=== PATIENT | female | born 1945 | race Caucasian/White ===

== ENCOUNTER → 2023-12-20 15:33 | Outpatient (REF) | payer MEDICARE, OTHER, SELFPAY | LOC: RAD 15:33 | PROVIDERS: ATTENDING PHYSICIAN Specialist; FAMILY PHYSICIAN Internal Medicine | DX: C18.9 Malignant neoplasm of colon, unspecified (principal); C77.9 Secondary and unspecified malignant neoplasm of lymph node, unspecified | CPT/HCPCS: 71260; 74177; Q9967 ==

== ENCOUNTER 2023-12-28 19:32 | Emergency (ER) | payer MEDICARE, OTHER, SELFPAY ==
[2023-12-28 19:39] VITALS: BP 149/76
--- NOTE | 2023-12-28 22:15 | ED.SKININJ ---
HPI-Injury
<JACOB Bain - Last Filed: 12/28/23 23:53>
General
Chief Complaint: Skin Problem
Source: patient and spouse
Exam Limitations: none
Time Seen by Provider: 12/28/23 22:03
Nursing documentation reviewed up to this point in time: agreed with
Travel History
Have you had any contact with someone who has COVID-19?: No
Do you have any symptoms of coronavirus? Fever > 100 degrees, chills, cough, shortness of breath, sore throat, loss of taste or smell, muscle aches, or headache?: No
History of Present Illness-Injury
Is this injury a work related problem?: No
Initial Injury comments:
78 y/o F presents to ED after injury above lip. Patient reports she was walking with 2 dinner plates when she tripped over the rug and fell onto the coffee table around 1900. She now presents with a cut along her upper lip, below her nose. It is not
actively bleeding but patient reports it was bleeding at time of injury. She does not recall what she hit to cause the injury but states the dinner plate was broken. She may have hit her face on plate or the table. Coffee table is described as a
rounded wooden table with no sharp edges. reports patient walks with shuffling steps which caused her to trip across rug. She reports moderate pain and tightness around area. She did not apply anything to the cut or wash it with water.
Patient has wet gauze on it in ED. She is currently on low dose ASA that she takes in the morning. Denies other injuries, dental injury, headache, nausea, vomiting, or LOC. No warmth or redness along cut.
Past History
<JACOB Bain - Last Filed: 12/28/23 23:53>
Past History
ED Past Medical History: Cancer, GERD, HTN, Hypercholesterolemia, NIDDM and Other
ED Past Surgical History: Cholecystectomy, Orthopedic and Urological (litho)
Social History
Tobacco: Smoker
Alcohol: None
Drug: None
Personal:
Living: with family
Review of Systems
<Joao Jacobo BRENDA - Last Filed: 12/28/23 23:53>
Review of Systems
Allergies reviewed?: Yes
All Other Systems: ROS reviewed and negative except as documented in HPI and ROS
Constitutional: Reports no symptoms
EENT: Reports no symptoms
Respiratory: Reports no symptoms
Cardiac: Reports no symptoms
ABD/GI: Reports no symptoms
: Reports no symptoms
Musculoskeletal: Reports no symptoms
Skin: Reports other (laceration)
Neurological: Reports no symptoms
Endocrine: Reports no symptoms
Hematologic/Lymphatic: Reports no symptoms
Psychiatric: Reports no symptoms
Skin Exam
<Jorgegeorge Jacobo, BRENDA - Last Filed: 12/28/23 23:53>
Laceration
Upper Lip:
Length in cm: 4
Orientation: diagonal
Type of Laceration: layered
Any active bleeding?: low grade venous oozing
Distal skin color and temperature: normal-warm & good color
Normal distal neurovascular exam: Yes
Range of motion: full
Phy Exam
<Jorgegeorge Jacobo, BRENDA - Last Filed: 12/28/23 23:53>
General Physical Exam
General Presentation: well appearing
General age: appears stated age
General Skin: warm and dry
General Habitus: normal
General Mental: alert
General Hydration: appears well hydrated
ENT Exam
ENT Exam: other (dentition intact)
Eye Exam
Eye Exam: PERRL, EOMI and conjunctiva normal
Cardiovascular Exam
Cardiovascular Exam: regular rate/rhythm, no edema, no gallop, no murmur and normal peripheral pulses
Pulmonary Exam
Pulmonary Exam: lungs clear and no respiratory distress
Neurological Exam
Neurological Exam: alert and oriented x3
Musculoskeletal Exam
Musculoskeletal Exam: full ROM (full ROM of all extremities and neck)
Skin Exam
Skin Exam: normal color, warm/dry and laceration (4 cm horizontal laceration along philtrum, no erythema, swelling or warmth in surrounding skin)
Psychiatric Exam
Psychiatric Exam: normal mood/affect
Course
<JACOB Bain - Last Filed: 12/28/23 23:53>
Orders/Labs/Results
Orders:
Orders
12/28/23 22:24
Tetanus/Diphth/Acelpertussis [Adacel] 0.5 ml IM .ONCE ONE
12/28/23 23:46
Acetaminophen [Tylenol] 1,000 mg PO NOW STA
Cephalexin Monohydrate [Keflex] 500 mg PO NOW STA
Vital Signs
Initial and Last Documented VS:
Initial Vital Signs
Temp Pulse Resp BP Pulse Ox
97.9 F 63 20 149/76 98
12/28/23 19:39 12/28/23 19:39 12/28/23 19:39 12/28/23 19:39 12/28/23 19:39
Last Documented Vital Signs
Temp Pulse Resp BP Pulse Ox
97.9 F 63 20 149/76 98
12/28/23 19:39 12/28/23 19:39 12/28/23 19:39 12/28/23 19:39 12/28/23 19:39
<Natalia Silveira DO - Last Filed: 12/29/23 00:00>
Orders/Labs/Results
Orders:
Orders
12/28/23 22:24
Tetanus/Diphth/Acelpertussis [Adacel] 0.5 ml IM .ONCE ONE
12/28/23 23:46
Acetaminophen [Tylenol] 1,000 mg PO NOW STA
Cephalexin Monohydrate [Keflex] 500 mg PO NOW STA
Vital Signs
Initial and Last Documented VS:
Initial Vital Signs
Temp Pulse Resp BP Pulse Ox
97.9 F 63 20 149/76 98
12/28/23 19:39 12/28/23 19:39 12/28/23 19:39 12/28/23 19:39 12/28/23 19:39
Last Documented Vital Signs
Temp Pulse Resp BP Pulse Ox
97.9 F 63 20 149/76 98
12/28/23 19:39 12/28/23 19:39 12/28/23 19:39 12/28/23 19:39 12/28/23 19:39
Procedures
<JACOB Bain - Last Filed: 12/28/23 23:53>
Laceration Closure
Upper Lip:
Status of Wound: clean
Size of Wound in cm: 4
Description of Wound Edges: sharp
Preparation: cleaned with saline
Anesthesia: 1% Lidocaine with epi and added Na Bicarb to local
Revision/Debridement: irrigate-direct pressure
Type of Closure: interrupted sutures
Skin Closure Material: 6-0 nylon
Number of sutures: 11
<JACOB Bain - Last Filed: 12/28/23 23:53>
MDM/Problems Addressed
Differential Diagnosis Includes:
Laceration
MDM/Problems Addressed:
Laceration closed with 11 interrupted sutures, 6-0 nylon. No signs of surrounding infection.
<JACOB Bain - Last Filed: 12/28/23 23:53>
*Critical Care Note
Total Time (30-74mins, 75-104mins- exclusive of procedures): Not Applicable
<Natalia Silveira DO - Last Filed: 12/29/23 00:00>
*Pulse Oximetry
Patient hypoxic: no
*Critical Care Note
Total Time (30-74mins, 75-104mins- exclusive of procedures): Not Applicable
ED Attending Note
<JACOB Bain - Last Filed: 12/28/23 23:53>
-
Portions of this chart may have been created with voice recognition software.� Occasional wrong word or��sound alike� substitutions may have occurred due to the inherent limitations of voice recognition software.
<Natalia Silveira DO - Last Filed: 12/29/23 00:00>
ED Attending Note
Patient seen and examined by attending physician: Yes
I performed the substantive portion of visit, reviewed & personally made and approve the management plan that is documented in note by myself or MATT.: Yes
I performed a history and physical exam of patient and discussed management with resident, I reviewed resident's note and agree with documented findings and plan of care.: Yes
ED Attending Note:
This is a 78-year-old woman who resides at home independently. While carrying 2 plates full of dinner out to her living room she inadvertently tripped over her coffee table falling forward and striking her face, she believes on the coffee table.
She denies loss of consciousness and was able to get up and has been ambulatory since incident. She complains of laceration upper lip just below her nose with moderate bleeding initially which has subsided with local pressure.
She takes no anticoagulants save for low-dose aspirin.
She denies headache, denies neck nor back pain, no epistaxis, no dizziness nor lightheadedness, no weakness nor numbness. She denies dental pain nor mouth pain.
Unsure as to her last Tdap believes this was greater than 10 years ago.
TRAUMA EXAM:
VITAL SIGNS: Vital signs reviewed, cooperative. 78-year-old woman appears her stated age, bright and alert, pleasant, appears in no acute distress. Easily communicative.
DISTRESS: No active disease
EYES: Pupils reactive, no orbital trauma
NOSE: No deformity or epistaxis. No palpable nasal tenderness. No septal hematoma.
FACE AND SCALP: No scalp trauma, external canals no blood. There is a 4 cm horizontal laceration of the upper lip just below the nose. This laceration is subcutaneous depth but not through and through and does not involve the vermilion border.
There is no active bleeding. No involvement of the nasal lauri. Teeth are intact, nontender. There is full mandible range of motion without difficulty nor pain. No facial bony tenderness.
NECK: Supple nontender, full range of motion without difficulty nor pain.
BACK: Back nontender, pelvis stable to compression
RESPIRATORY: No distress, breath sounds normal, no tender chest wall
CARDIAC: No murmur, pulses equal and strong
ABDOMEN: Soft nontender bowel sounds normal
SKIN: Warm and dry, mildly pale in color. Fair turgor.
EXTREMITIES: Nontender. Full range of motion without difficulty nor pain.
NEUROLOGICAL: Alert, oriented, no motor deficits. Gait is steady.
PSYCH: Mood affect normal
Patient will require suture repair of upper lip laceration.
She remains bright and alert, no focal neurodeficits, no anticoagulants save her low-dose aspirin; no indication for CT of the head.
No spinal tenderness nor complaints of pain, no facial bony tenderness. No indication for radiologic studies.
Will update Tdap.
12/28/2023 2345 PM
Suture repair by PA student, assisted by myself.
Will place on short course of Keflex.
Will give Tylenol for pain.
Wound care discussed.
Recommend follow-up with PCP in 5 to 7 days for suture removal.
Discharge Plan
Departure
Patient Disposition: Home (Routine Discharge)
Date of Disposition: 12/28/23
Time of Disposition: 23:47
Patient with high blood pressure during this ER visit?: No
Condition: Good
Discharge Problem:
laceration of upper lip
Instructions: Laceration Repair With Stitches ED
Prescriptions:
New
cephalexin 500 mg capsule
1,000 mg PO BID 5 Days Qty: 20 0RF
No Action
atorvastatin 20 MG tablet
20 mg PO HS
sertraline 100 MG tablet
200 mg PO QPM
Patient Comments:
01/26/23-patient states is 2 tables but home list and pharmacy show one and a half tablets
pantoprazole 40 MG tablet,delayed release (DR/EC)
40 mg PO DAILY
aspirin 81 mg Tablet,Delayed Release (Dr/Ec)
81 mg PO DAILY
potassium chloride 20 mEq Tablet Extended Release
20 meq PO SUTUTHSA
lisinopril 20 mg tablet
10 mg PO DAILY
Hold Instructions: Resume on 02/09/23. until seen by pcp
furosemide [Lasix] 20 mg Tablet
20 mg PO DAILY
glimepiride 1 mg Tablet
1 mg PO DAILY
potassium chloride 20 mEq Tablet Extended Release
40 meq PO MOWEFR
loperamide 2 mg Capsule
2 mg PO BID Qty: 0 0RF
Rx Instructions:
would stop if no BM x3 days, and if no BM x5 days would start laxative
carvedilol 3.125 mg Tablet
3.125 mg PO BID Qty: 0 0RF
diphenoxylate-atropine 2.5-0.025 mg Tablet
1 tab PO Q4HPRN PRN (Reason: chemo diarrhea) Qty: 0 0RF
Referrals:
Sabra Bey MD [Family Provider] - Follow up in 5-7 days
Activity Restrictions/Additional Instructions:
Keep wound clean and dry. You may cleanse with very gentle soap and water once a day, pat dry, apply thin film of antibiotic ointment such as bacitracin or Neosporin once daily and then Band-Aid or if no drainage can leave open to air.
Take Tylenol 4 times daily as needed for pain.
You have been prescribed a 5-day course of Keflex, 2 caplets twice daily to help prevent infection.
Elevate head of bed over the next few days to help limit local swelling and you can apply local ice as well.
Follow-up with your primary care physician in 5 to 7 days for suture removal.
Interventions
Interventions:
*Risk Screen - Suicide Last Done: 12/28/23 19:39
*General Assessment Last Done: 12/28/23 19:39
*Neglect/Abuse Screening Last Done: 12/28/23 19:39
*ED COVID-19 Vaccine History Last Done: 12/28/23 21:58
ED-Skin Assessment Last Done: 12/28/23 22:33
[2023-12-28] MEDS: TYLENOL 1000 MG PO (23:52)
[2023-12-28] MEDS: ADACEL 0.5 ML IM (23:53)
[2023-12-28] MEDS: KEFLEX 500 MG PO (23:53)
== END 2023-12-29 00:08 | disposition home or self-care (01) ==
LOC: EMR 19:32
PROVIDERS: EMERGENCY PHYSICIAN Emergency Medicine; FAMILY PHYSICIAN Internal Medicine
DX: S01.511A Laceration without foreign body of lip, initial encounter (principal); W01.190A Fall on same level from slipping, tripping and stumbling with subsequent striking against furniture, initial encounter; F17.200 Nicotine dependence, unspecified, uncomplicated; Z23 Encounter for immunization
CPT/HCPCS: 99282; 12013; 90471; 90715

== ENCOUNTER → 2024-06-01 14:57 | Outpatient (REF) | payer MEDICARE, OTHER, SELFPAY | LOC: RAD 14:57 | PROVIDERS: ATTENDING PHYSICIAN Specialist; FAMILY PHYSICIAN Internal Medicine | DX: C18.9 Malignant neoplasm of colon, unspecified (principal); C77.9 Secondary and unspecified malignant neoplasm of lymph node, unspecified | CPT/HCPCS: 71260; 74177; Q9967 ==

== ENCOUNTER 2024-10-09 17:40 | Emergency (ER) | payer MEDICARE, OTHER, SELFPAY ==
[2024-10-09 17:45] VITALS: BP 110/59
[2024-10-09 17:49] LABS: Glucose - Point of Care 212 mg/dl (70-99)
[2024-10-09 18:15] LABS: % Basophils 0.2 % (0-2); % Immature Granulocytes 0.4 % (0-0.5); % Lymphocytes 4.6 % (20.5-51.1); % Monocytes 3.7 % (1.7-9.3); % Neutrophils 91.1 % (42.2-75.2); Absolute Lymphocytes 0.5 10^3/uL (1.2-3.4); Absolute Monocytes 0.4 10^3/uL (0.1-0.6); Absolute Neutrophils 9.2 10^3/uL (1.4-6.5); Hematocrit 34.8 % (37.0-47.0); Hemoglobin 11.9 g/dL (12.0-16.0); Mean Corp Hgb Conc. 34.2 g/dL (33.0-37.0); Mean Corpuscular Hgb 29.5 pg (27.0-31.0); Mean Corpuscular Volume 86.1 fL (81.0-99.0); Mean Platelet Volume 10.7 fL (7.4-10.4); Nucleated Red Blood Cells % 0 %; Platelet Count 141 10^3/uL (130-400); Red Blood Cell Count 4.04 10^6/uL (4.20-5.40); Red Cell Dist. Width 12.7 % (11.5-14.5); White Blood Cell Count 10.1 10^3/uL (4.8-10.8)
[2024-10-09 18:23] VITALS: BP 122/72
[2024-10-09 18:25] LABS: ALT (SGPT) 29 U/L (0-35); AST (SGOT) 54 U/L (14-36); Albumin 4.2 g/dl (3.5-5.0); Alkaline Phosphatase 145 U/L (38-126); Blood Urea Nitrogen 26 mg/dl (7-17); Calcium 9.5 mg/dl (8.4-10.2); Carbon Dioxide 18 mmol/L (22-30); Chloride 99 mmol/L (98-107); Glucose 220 mg/dl (70-99); Lipase 25 U/L (23-300); Potassium 4.2 mmol/L (3.5-5.1); Sodium 137 mmol/L (135-145); Total Bilirubin 1.1 mg/dl (0.2-1.3); Total Protein 6.9 g/dl (6.3-8.2); eGFR 46.91
[2024-10-09 18:27] LABS: COVID-19 Antigen Negative (Negative)
--- NOTE | 2024-10-09 20:31 | ED.GENMED ---
History of Present Illness
General
Chief Complaint: Abdominal Symptoms
Time Seen by Provider: 10/09/24 20:30
History of Present Illness
History of Present Illness:
TIME OF INITIAL ENCOUNTER: 8:30 PM
HPI: The patient presents with 3 to 4 days of excessive diarrhea. She denies any recent antibiotic use. She has been very weak over the last day or so. She is essentially been in bed from 3 PM to 1 PM today. She has some degree of abdominal
discomfort.
EXAM:
GENERAL: The patient appears somewhat lethargic
HEENT: Very dry oral mucosa, somewhat hard of hearing
CARDIOVASCULAR: No murmurs, normal heart rate, regular rhythm, No chest wall tenderness
PULMONARY: No respiratory distress, breath sounds are clear and equal
ABDOMEN: Soft with no peritoneal signs, no tenderness
NEUROLOGIC: Fair strength all extremities, no coordination deficits
PSYCHIATRIC: Appropriate mental status, normal insight and judgement
EXTREMITIES: Nontender, no edema, moves all extremities equally
SKIN: No rash, no lesions
NUMBER AND COMPLEXITY OF PROBLEMS ADDRESSED AT THE ENCOUNTER
� Chronic conditions affecting care: Colon cancer, high blood pressure, hyperlipidemia, GERD, diabetes, anxiety/depression
� Acute Exacerbation and/or Progression of Chronic Illness: This is an acute problem
� Differential Diagnosis includes: acute diarrheal illness, viral syndrome, foodborne illness, dehydration, GHADA
AMOUNT AND/OR COMPLEXITY OF DATA TO BE REVIEWED AND ANALYZED
� I performed an independent evaluation of and my interpretation is:
EKG:
CT:
X-rays:
Laboratory Studies: White count is 10.1, hemoglobin 11.9, bicarb is 18, creatinine is 1.2, COVID-negative
Other:
� Review of other/old records: The patient was admitted here in January 2023 with diarrhea and weakness at that time was felt to be chemotherapy induced�at that time her lab work was more concerning than it is today.
� Clinical information was obtained by an independent historian: I spoke to the at bedside
� Prescriptions/Medications Considered but not given:
� Further testing considered but not performed: I offered and considered keeping the patient in the hospital however the patient adamantly prefers to go home and sleep in her own bed.
RISK OF COMPLICATIONS AND/OR MORBIDITY OR MORTALITY OF PATIENT MANAGEMENT
� Social determinants of health affecting care: Lives at home
� Discussion with other providers:
� Escalation of care including admission/observation vs risk of discharge considered: The patient's blood work today is not as bad as what it was when she was admitted here with dehydration that was felt to be due to chemotherapy
induced diarrhea in 2022. She was given IV fluids tonight as she appeared very dehydrated upon arrival with very dry oral mucosa.
ANY OTHER UPDATES:
11:50 PM: The patient was given a liter of fluid and on reassessment she does appear more awake and alert. Will give 500 mL of additional fluids. She has been unable to give us a stool sample here.
Past History
Past History
ED Past Medical History: Cancer, GERD, HTN, Hypercholesterolemia, NIDDM and Other
ED Past Surgical History: Cholecystectomy, Orthopedic and Urological (litho)
Social History
Tobacco: Smoker
Alcohol: None
Drug: None
Personal:
Living: with family
Phy Exam
Physical Exam
Physical Exam:
See HPI
Course
Orders/Labs/Results
Orders:
Orders
10/09/24 17:54
COVID-19 Antigen Urgent
Source: Nasal Swab
Complete Blood Count/With Diff Urgent
Comprehensive Metabolic Panel Urgent
Lipase Urgent
Influenza A+B Rapid Molecular Urgent
[facility]WOT Source: Nasal Swab
Specimen Description:
10/09/24 20:40
STOOL [C difficile Antigen & Toxins] Urgent
[facility]WOT Source: Feces/Stool
Specimen Description:
Stool Culture Urgent
[facility]WOT Source: Feces/Stool
Specimen Description:
0.9% Sodium Chloride 1000 ml [Nss] 1,000 ml IV BOLUS
10/09/24 23:55
0.9% Sodium Chloride 500 ml [Nss] 500 ml IV BOLUS
Abnormal Lab Results
10/09/24 10/09/24
17:47 17:54
RBC 4.04 L 10^6/uL
(4.20-5.40)
Hgb 11.9 L g/dL
(12.0-16.0)
Hct 34.8 L %
(37.0-47.0)
MPV 10.7 H fL
(7.4-10.4)
Absolute Neuts (auto) 9.2 H 10^3/uL
(1.4-6.5)
Absolute Lymphs (auto) 0.5 L 10^3/uL
(1.2-3.4)
Neutrophils % 91.1 H %
(42.2-75.2)
Lymphocytes % 4.6 L %
(20.5-51.1)
Carbon Dioxide 18 L mmol/L
(22-30)
BUN 26 H mg/dl
(7-17)
Creatinine 1.2 H mg/dL
(0.6-1.0)
Glucose 220 H mg/dl
(70-99)
AST 54 H U/L
(14-36)
Alkaline Phosphatase 145 H U/L
(38-126)
POC Glucose 212 H mg/dl
(70-99)
10/09/24 17:54
10/09/24 17:54
Vital Signs
Initial and Last Documented VS:
Initial Vital Signs
Temp Pulse Resp BP Pulse Ox
37.0 C 74 16 110/59 97
10/09/24 17:45 10/09/24 17:45 10/09/24 17:45 10/09/24 17:45 10/09/24 17:45
Last Documented Vital Signs
Temp Pulse Resp BP Pulse Ox
36.8 C 68 16 122/72 96
10/09/24 18:23 10/09/24 18:23 10/09/24 18:23 10/09/24 18:23 10/09/24 18:23
*Critical Care Note
Total Time (30-74mins, 75-104mins- exclusive of procedures): Not Applicable
ED Attending Note
-
Portions of this chart may have been created with voice recognition software.� Occasional wrong word or��sound alike� substitutions may have occurred due to the inherent limitations of voice recognition software.
Discharge Plan
Departure
Patient Disposition: Home (Routine Discharge)
Date of Disposition: 10/10/24
Time of Disposition: 00:29
Patient with high blood pressure during this ER visit?: Yes
Discharge Problem:
Diarrhea
Instructions: Diarrhea in teens and adults, Dehydration, Adult (DC)
Prescriptions:
No Action
atorvastatin 20 MG tablet
20 mg PO HS
sertraline 100 MG tablet
200 mg PO QPM
Patient Comments:
01/26/23-patient states is 2 tables but home list and pharmacy show one and a half tablets
pantoprazole 40 MG tablet,delayed release (DR/EC)
40 mg PO DAILY
aspirin 81 mg Tablet,Delayed Release (Dr/Ec)
81 mg PO DAILY
potassium chloride 20 mEq Tablet Extended Release
20 meq PO SUTUTHSA
lisinopril 20 mg tablet
10 mg PO DAILY
furosemide [Lasix] 20 mg Tablet
20 mg PO DAILY
glimepiride 1 mg Tablet
1 mg PO DAILY
potassium chloride 20 mEq Tablet Extended Release
40 meq PO MOWEFR
loperamide 2 mg Capsule
2 mg PO BID Qty: 0 0RF
Rx Instructions:
would stop if no BM x3 days, and if no BM x5 days would start laxative
carvedilol 3.125 mg Tablet
3.125 mg PO BID Qty: 0 0RF
diphenoxylate-atropine 2.5-0.025 mg Tablet
1 tab PO Q4HPRN PRN (Reason: chemo diarrhea) Qty: 0 0RF
cephalexin 500 mg capsule
1,000 mg PO BID 5 Days Qty: 20 0RF
Referrals:
Sabra Bey MD [Family Provider] -
Activity Restrictions/Additional Instructions:
I reviewed your blood work which suggest some degree of dehydration. We did give you 1 point liters of IV fluid. Return here if worse or other concerns. Follow-up with your primary care doctor as well.
Interventions
Interventions:
*General Assessment Last Done: 10/09/24 23:14
*Neglect/Abuse Screening Last Done: 10/09/24 23:14
*ED COVID-19 Vaccine History Last Done: 10/09/24 23:14
[id number] Assessment Last Done: 10/09/24 23:14
Discharge Date and Time
Print Language: FAROESE
[2024-10-09] MEDS: NSS 1000 IV (21:26)
[2024-10-09] MEDS: NSS 500 IV (23:58)
[2024-10-10 01:08] VITALS: BP 124/70
== END 2024-10-10 01:10 | disposition home or self-care (01) ==
LOC: EMR 17:40
PROVIDERS: Emergency Medicine; EMERGENCY PHYSICIAN Emergency Medicine; FAMILY PHYSICIAN Internal Medicine
DX: R19.7 Diarrhea, unspecified (principal); K21.9 Gastro-esophageal reflux disease without esophagitis; I10 Essential (primary) hypertension; E78.00 Pure hypercholesterolemia, unspecified; E11.9 Type 2 diabetes mellitus without complications; F17.200 Nicotine dependence, unspecified, uncomplicated; Z90.49 Acquired absence of other specified parts of digestive tract
CPT/HCPCS: 99283; 96360; 80053; 82962; 83690; 85025; 87502; 87811

== ENCOUNTER 2024-10-13 16:12 | Inpatient (IN) | payer MEDICARE, OTHER, SELFPAY ==
[2024-10-12] VITALS (18 sets, daily range): BP systolic 98–164; BP diastolic 52–75; PULSE 79; O2SAT 93; BMI 24.0; BMI 22.8
--- NOTE | 2024-10-12 04:06 | ED.GENMED ---
History of Present Illness
<JACOB Ross - Last Filed: 10/12/24 06:21>
General
Chief Complaint: Fall
Source: patient
Time Seen by Provider: 10/12/24 04:06
Nursing documentation reviewed up to this point in time: agreed with
History of Present Illness
History of Present Illness:
Pt is a 78 yo F who presents to the emergency department via EMS due to a fall. Pt states that she was walking back to bed from using the bathroom and fell and hit her head. Pt states that she was not using her walker when she fell. Pt has about a 2
cm laceration on the right forehead. She denies LOC. Pt states that she has a mild headache and describes it as achy. Pt also admits to having right sided back pain. She reports that the pain is located in her mid to lower back to the right of her
spine. She states that the pain has been present for about a year, but that the pain is worse recently. Pt denies known trauma to the back area. Pt reports that she has felt weak recently. Pt denies dizziness, neck pain, changes in vision or
hearing, numbness or tingling in extremities, chest pain, shortness of breath, fever, chills, N/V, recent illness. Pt states that she has been falling more frequently recently. Pt was seen recently in the emergency department on 10/09/24 for diarrhea
and dehydration. Pt states that she still currently has diarrhea, but has been having less diarrhea since she has been taking Imodium.
Past History
<JACOB Ross - Last Filed: 10/12/24 06:21>
Past History
ED Past Medical History: Cancer, GERD, HTN, Hypercholesterolemia, NIDDM and Other
ED Past Surgical History: Cholecystectomy, Orthopedic and Urological (litho)
Social History
Tobacco: Smoker
Alcohol: None
Drug: None
Personal:
Living: with family
Review of Systems
<JACOB Ross - Last Filed: 10/12/24 06:21>
Review of Systems
Allergies reviewed?: Yes
Constitutional: Reports no symptoms
EENT: Reports no symptoms
Respiratory: Reports no symptoms
Cardiac: Reports no symptoms
ABD/GI: Reports diarrhea
: Reports no symptoms
Musculoskeletal: Reports back pain
Neurological: Reports headache and weakness
Phy Exam
<Victorina Shrestha [facility] - Last Filed: 10/12/24 06:21>
General Physical Exam
General Presentation: well appearing and no apparent distress
General age: appears stated age
General Skin: warm and dry
General Habitus: normal
General Mental: alert
General Hydration: appears well hydrated
Eye Exam
Eye Exam: PERRL and conjunctiva normal
Cardiovascular Exam
Cardiovascular Exam: regular rate/rhythm
Pulmonary Exam
Pulmonary Exam: lungs clear
Gastrointestinal Exam
Gastrointestinal Exam: non tender and soft
Neurological Exam
Neurological Exam: alert, oriented x3, no motor deficits and speech normal
Musculoskeletal Exam
Musculoskeletal Exam: full ROM, back pain, back tenderness and other (Full neck ROM, no neck tenderness or pain with movement)
Skin Exam
Skin Exam: laceration (about 1 cm laceration of right forehead) and other (ecchymosis of mid back on the right side)
Course
<Victorina Shrsetha [facility] - Last Filed: 10/12/24 06:21>
Orders/Labs/Results
Orders:
Orders
10/12/24 03:52
Lidocaine/Epinephrine/Tetracai [Let Topical Anesthetic Gel] 3 ml .ROUTE .ST-MED ONE
10/12/24 04:21
Electrocardiogram (*1) Urgent
Reason for Study: Other
Other Reason for Exam: Fall
CT Head W/o Iv Contrast Urgent
Comment:
Reason For Exam: fall and hit head
Chest [CR Chest - 2 Views ] Urgent
Comment:
Reason For Exam: fall with back pain
10/12/24 04:42
CBC/With Diff [Complete Blood Count/With Diff] Urgent
CMP [Comprehensive Metabolic Panel] Urgent
PTT Urgent
Prothrombin Time Urgent
10/12/24 04:43
0.9% Sodium Chloride 1000 ml [Nss] 1,000 ml IV BOLUS
10/12/24 04:45
0.9% Sodium Chloride 1000 ml [Nss] 1,000 ml IV BOLUS
10/12/24 05:30
Acetaminophen [Tylenol] 1,000 mg PO NOW STA
10/12/24 06:44
Urine Culture Reflexed from UA [Urinalysis Reflex To Culture] Urgent
Date Specimen was Collected: 10/12/24
Time Specimen was Collected: 06:43
Urine Microscopic Reflex Cult Urgent
Urine Culture Urgent
HIWOT Source: U
Specimen Description:
Date Specimen was Collected: 10/12/24
Time Specimen was Collected: 06:43
10/12/24 07:00
Flush (0.9% Sodium Chloride) [Flush (Nss)] See Dose Instructions IV PER PROTOCOL
10/12/24 07:07
COVID-19 Antigen Urgent
Source: Nasal Swab
Influenza A+B Rapid Molecular Urgent
HIWOT Source: Nasal Swab
Specimen Description:
10/12/24 09:12
Abdomen/Pelvis wo Contrast CT [CT Abd/pelvis Wo Iv Cont] Routine
Comment:
Reason For Exam: Acute on chronic flank pain, Hx of kidney stone
10/12/24 09:13
Admit/Transfer Patient As Directed
Co-Sign Provider:
Level of Care: Observation services
Assign to:: Telemetry
Physician / Group: shyla vences
Diagnosis: Fall, back pain
Reason for Telemetry: Other
Other Reason for Telemetry: R/O arrythmia
Date to Stop Telemetry: 10/14/24
Time to Stop Telemetry: 11:00
10/12/24 09:14
PRN Pain Medication Management As Directed
May give lesser potent ordered pain med per pt: Yes
preference::
Protocol:: Medication orders for pain may be administered in a
manner that supports deferring to patient preference
when the pt is:
- Requesting an ordered lesser potent pain medication.
Least to most potent pain medications are defined
as: acetaminophen < NSAID < tramadol < opioids
(morphine, oxycodone, hydromorphone).
- Requesting a lesser dose of the same medication IF
ORDERED.
- Requesting a less intrusive route of administration
if both routes are prescribed by the provider (PO <
IV).
10/12/24 10:10
Lidocaine [Lidocaine 4% Patch] 1 patch TOPICAL DAILY
Apply Lidocaine patch(s) to:: Back
10/12/24 10:29
Activity As Directed
Activity Level: With Assistance
Vital Signs As Directed
Frequency: Per unit guidelines
Ot Eval And Treat Routine
Pt Eval And Treat Routine
Activity Level: With Assistance
DX Deep Vein Thrombosis Video Routine
10/12/24 10:45
0.9% Sodium Chloride 1000 ml [Nss] 1,000 ml IV 80 mls/hr
10/12/24 11:00
Amlodipine [Norvasc] 5 mg PO DAILY
Aspirin Low Dose EC [Aspir Low (Enteric Coated)] 81 mg PO DAILY
Carvedilol [Coreg] 12.5 mg PO BID
CefTRIAXone [Rocephin] 1,000 mg IV Q24H
Glimepiride [Amaryl] 2 mg PO DAILY
Levothyroxine [Synthroid] 50 mcg PO DAILY@0600
Pantoprazole [Protonix] 40 mg PO DAILY
Sterile Water [Sterile Water For Injection] 10 ml IV Q24H
10/12/24 12:00
Acetaminophen [Tylenol] 650 mg PO Q4HWA
Azithromycin [Zithromax] 500 mg PO DAILY
10/12/24 15:01
Ot Screening Request from Sharlene Routine
Pt Screening Request from Sharlene Routine
10/12/24 15:07
Pt Screening Request from Sharlene Routine
10/12/24 18:00
Enoxaparin Sodium [Lovenox] 40 mg SC QPM
10/12/24 20:00
Loperamide [Imodium] 2 mg PO BID
Remove Patch [Remove Lidocaine Patch] See Dose Instructions REMOVE DAILY@1999
10/12/24 22:00
Atorvastatin [Lipitor] 20 mg PO HS
Potassium Chloride [KCl] 10 meq PO HS
Sertraline HCl [Zoloft] 100 mg PO HS
10/13/24 07:05
Complete Blood Count/No Diff IN AM
Comprehensive Metabolic Panel IN AM
Glycohemoglobin (HgbA1c) Routine
Magnesium Routine
Comment: ADD ON
10/13/24 08:00
Lactobac/Bifidobac [Visbiome] 2 cap PO DAILY
10/13/24 08:31
Add On- LAB Routine
Tests Added?: Mg level
10/13/24 09:00
Potassium Chloride [KCl] 40 meq PO Q6H
10/13/24 09:26
Abdomen Xray - 1 View [CR Abdomen - 1 View] Routine
Comment:
Reason For Exam: abd distention, ?overflow diarrhea from constipat
10/14/24 11:00
DC Protocol for Telemetry ONCE
Abnormal Lab Results
10/12/24 10/12/24 10/13/24
04:42 06:44 07:05
RBC 4.14 L 10^6/uL 3.08 L 10^6/uL
(4.20-5.40) (4.20-5.40)
Hgb 9.4 L D g/dL
(12.0-16.0)
Hct 35.4 L % 26.7 L %
(37.0-47.0) (37.0-47.0)
Plt Count 91 L D 10^3/uL
(130-400)
MPV 11.1 H fL 12.3 H fL
(7.4-10.4) (7.4-10.4)
Abs Immat Gran (auto) 0.1 H 10^3/uL
(0-0.05)
Absolute Lymphs (auto) 0.5 L 10^3/uL
(1.2-3.4)
Immature Gran % 0.9 H %
(0-0.5)
Neutrophils % 81.0 H %
(42.2-75.2)
Lymphocytes % 8.8 L %
(20.5-51.1)
Potassium 3.1 L mmol/L
(3.5-5.1)
Carbon Dioxide 20 L mmol/L
(22-30)
BUN 28 H mg/dl 24 H mg/dl
(7-17) (7-17)
Glucose 246 H mg/dl 230 H mg/dl
(70-99) (70-99)
Hemoglobin A1c 8.5 H %
(4.0-5.6)
Calcium 8.3 L mg/dl
(8.4-10.2)
Magnesium 1.5 L mg/dl
(1.6-2.3)
AST 65 H U/L 39 H U/L
(14-36) (14-36)
ALT 44 H U/L
(0-35)
Alkaline Phosphatase 142 H U/L
(38-126)
Total Protein 5.1 L D g/dl
(6.3-8.2)
Albumin 2.6 L g/dl
(3.5-5.0)
Urine Ketones 2+ A
(Negative)
Ur Occult Blood Reflex Trace A
(Negative)
Leukocyte Esterase Rfl Trace A
(Negative)
Urine WBC (Reflex) 40-50 A /HPF
(0-5)
Urine Glucose 3+ A
(Negative)
10/13/24 07:05
10/13/24 07:05
Vital Signs
Initial and Last Documented VS:
Initial Vital Signs
Pulse Ox
97
10/12/24 03:50
Last Documented Vital Signs
Temp Pulse Resp BP Pulse Ox
97.9 F 74 17 138/69 96
10/16/24 15:55 10/16/24 15:55 10/16/24 15:55 10/16/24 15:55 10/16/24 15:55
<Zach Mauro, DO - Last Filed: 10/16/24 21:59>
Orders/Labs/Results
Orders:
Orders
10/12/24 03:52
Lidocaine/Epinephrine/Tetracai [Let Topical Anesthetic Gel] 3 ml .ROUTE .K-MED ONE
10/12/24 04:21
Electrocardiogram (*1) Urgent
Reason for Study: Other
Other Reason for Exam: Fall
CT Head W/o Iv Contrast Urgent
Comment:
Reason For Exam: fall and hit head
Chest [CR Chest - 2 Views ] Urgent
Comment:
Reason For Exam: fall with back pain
10/12/24 04:42
CBC/With Diff [Complete Blood Count/With Diff] Urgent
CMP [Comprehensive Metabolic Panel] Urgent
PTT Urgent
Prothrombin Time Urgent
10/12/24 04:43
0.9% Sodium Chloride 1000 ml [Nss] 1,000 ml IV BOLUS
10/12/24 04:45
0.9% Sodium Chloride 1000 ml [Nss] 1,000 ml IV BOLUS
10/12/24 05:30
Acetaminophen [Tylenol] 1,000 mg PO NOW STA
10/12/24 06:44
Urine Culture Reflexed from UA [Urinalysis Reflex To Culture] Urgent
Date Specimen was Collected: 10/12/24
Time Specimen was Collected: 06:43
Urine Microscopic Reflex Cult Urgent
Urine Culture Urgent
HIWOT Source: U
Specimen Description:
Date Specimen was Collected: 10/12/24
Time Specimen was Collected: 06:43
10/12/24 07:00
Flush (0.9% Sodium Chloride) [Flush (Nss)] See Dose Instructions IV PER PROTOCOL
10/12/24 07:07
COVID-19 Antigen Urgent
Source: Nasal Swab
Influenza A+B Rapid Molecular Urgent
HIWOT Source: Nasal Swab
Specimen Description:
10/12/24 09:12
Abdomen/Pelvis wo Contrast CT [CT Abd/pelvis Wo Iv Cont] Routine
Comment:
Reason For Exam: Acute on chronic flank pain, Hx of kidney stone
10/12/24 09:13
Admit/Transfer Patient As Directed
Co-Sign Provider:
Level of Care: Observation services
Assign to:: Telemetry
Physician / Group: shyla vences
Diagnosis: Fall, back pain
Reason for Telemetry: Other
Other Reason for Telemetry: R/O arrythmia
Date to Stop Telemetry: 10/14/24
Time to Stop Telemetry: 11:00
10/12/24 09:14
PRN Pain Medication Management As Directed
May give lesser potent ordered pain med per pt: Yes
preference::
Protocol:: Medication orders for pain may be administered in a
manner that supports deferring to patient preference
when the pt is:
- Requesting an ordered lesser potent pain medication.
Least to most potent pain medications are defined
as: acetaminophen < NSAID < tramadol < opioids
(morphine, oxycodone, hydromorphone).
- Requesting a lesser dose of the same medication IF
ORDERED.
- Requesting a less intrusive route of administration
if both routes are prescribed by the provider (PO <
IV).
10/12/24 10:10
Lidocaine [Lidocaine 4% Patch] 1 patch TOPICAL DAILY
Apply Lidocaine patch(s) to:: Back
10/12/24 10:29
Activity As Directed
Activity Level: With Assistance
Vital Signs As Directed
Frequency: Per unit guidelines
Ot Eval And Treat Routine
Pt Eval And Treat Routine
Activity Level: With Assistance
DX Deep Vein Thrombosis Video Routine
10/12/24 10:45
0.9% Sodium Chloride 1000 ml [Nss] 1,000 ml IV 80 mls/hr
10/12/24 11:00
Amlodipine [Norvasc] 5 mg PO DAILY
Aspirin Low Dose EC [Aspir Low (Enteric Coated)] 81 mg PO DAILY
Carvedilol [Coreg] 12.5 mg PO BID
CefTRIAXone [Rocephin] 1,000 mg IV Q24H
Glimepiride [Amaryl] 2 mg PO DAILY
Levothyroxine [Synthroid] 50 mcg PO DAILY@0600
Pantoprazole [Protonix] 40 mg PO DAILY
Sterile Water [Sterile Water For Injection] 10 ml IV Q24H
10/12/24 12:00
Acetaminophen [Tylenol] 650 mg PO Q4HWA
Azithromycin [Zithromax] 500 mg PO DAILY
10/12/24 15:01
Ot Screening Request from Sharlene Routine
Pt Screening Request from Sharlene Routine
10/12/24 15:07
Pt Screening Request from Sharlene Routine
10/12/24 18:00
Enoxaparin Sodium [Lovenox] 40 mg SC QPM
10/12/24 20:00
Loperamide [Imodium] 2 mg PO BID
Remove Patch [Remove Lidocaine Patch] See Dose Instructions REMOVE DAILY@1999
10/12/24 22:00
Atorvastatin [Lipitor] 20 mg PO HS
Potassium Chloride [KCl] 10 meq PO HS
Sertraline HCl [Zoloft] 100 mg PO HS
10/13/24 07:05
Complete Blood Count/No Diff IN AM
Comprehensive Metabolic Panel IN AM
Glycohemoglobin (HgbA1c) Routine
Magnesium Routine
Comment: ADD ON
10/13/24 08:00
Lactobac/Bifidobac [Visbiome] 2 cap PO DAILY
10/13/24 08:31
Add On- LAB Routine
Tests Added?: Mg level
10/13/24 09:00
Potassium Chloride [KCl] 40 meq PO Q6H
10/13/24 09:26
Abdomen Xray - 1 View [CR Abdomen - 1 View] Routine
Comment:
Reason For Exam: abd distention, ?overflow diarrhea from constipat
10/14/24 11:00
DC Protocol for Telemetry ONCE
Abnormal Lab Results
10/12/24 10/12/24 10/13/24
04:42 06:44 07:05
RBC 4.14 L 10^6/uL 3.08 L 10^6/uL
(4.20-5.40) (4.20-5.40)
Hgb 9.4 L D g/dL
(12.0-16.0)
Hct 35.4 L % 26.7 L %
(37.0-47.0) (37.0-47.0)
Plt Count 91 L D 10^3/uL
(130-400)
MPV 11.1 H fL 12.3 H fL
(7.4-10.4) (7.4-10.4)
Abs Immat Gran (auto) 0.1 H 10^3/uL
(0-0.05)
Absolute Lymphs (auto) 0.5 L 10^3/uL
(1.2-3.4)
Immature Gran % 0.9 H %
(0-0.5)
Neutrophils % 81.0 H %
(42.2-75.2)
Lymphocytes % 8.8 L %
(20.5-51.1)
Potassium 3.1 L mmol/L
(3.5-5.1)
Carbon Dioxide 20 L mmol/L
(22-30)
BUN 28 H mg/dl 24 H mg/dl
(7-17) (7-17)
Glucose 246 H mg/dl 230 H mg/dl
(70-99) (70-99)
Hemoglobin A1c 8.5 H %
(4.0-5.6)
Calcium 8.3 L mg/dl
(8.4-10.2)
Magnesium 1.5 L mg/dl
(1.6-2.3)
AST 65 H U/L 39 H U/L
(14-36) (14-36)
ALT 44 H U/L
(0-35)
Alkaline Phosphatase 142 H U/L
(38-126)
Total Protein 5.1 L D g/dl
(6.3-8.2)
Albumin 2.6 L g/dl
(3.5-5.0)
Urine Ketones 2+ A
(Negative)
Ur Occult Blood Reflex Trace A
(Negative)
Leukocyte Esterase Rfl Trace A
(Negative)
Urine WBC (Reflex) 40-50 A /HPF
(0-5)
Urine Glucose 3+ A
(Negative)
10/13/24 07:05
10/13/24 07:05
Vital Signs
Initial and Last Documented VS:
Initial Vital Signs
Pulse Ox
97
10/12/24 03:50
Last Documented Vital Signs
Temp Pulse Resp BP Pulse Ox
97.9 F 74 17 138/69 96
10/16/24 15:55 10/16/24 15:55 10/16/24 15:55 10/16/24 15:55 10/16/24 15:55
<JACOB Ross - Last Filed: 10/12/24 06:21>
MDM/Problems Addressed
Differential Diagnosis Includes:
Fall, dehydration, laceration
MDM/Problems Addressed:
Pt is a 78 yo F who presents to the ED via EMS after a fall and hitting her head. Pt denies LOC or dizziness. She reports that she was walking without her walker when she fell. Pt states that she came to the ED a couple days ago for diarrhea and
dehydration, and reports she is still having diarrhea.
Orders: CT of the head without IV contrast, Chest X-Ray, EKG, CBC, CMP, PT, Prothrombin, UA.
Pt appears dehydrated on exam and laboratory results are consistent with dehydration. 1L of IV fluids were given.
5 sutures placed to close laceration on patient's right forehead
<Zach Mauro DO - Last Filed: 10/16/24 21:59>
MDM/Problems Addressed
Chronic conditions affecting care: DM, HTN and Kidney disease
<JACOB Ross - Last Filed: 10/12/24 06:21>
*Critical Care Note
Total Time (30-74mins, 75-104mins- exclusive of procedures): Not Applicable
<DO Michelle Jordan Last Filed: 10/16/24 21:59>
*Radiology
Radiology exam reviewed: radiology read reviewed
Data Reviewed
Review of Other/Old Records Reveals: Labs, Records and Radiology Studies
<Zach Mauro DO - Last Filed: 10/16/24 21:59>
Patient Management
Social determinants of health affecting care: Living situation and Strong social support
Discussion with other providers: Hospitalist
<Zach Mauro DO - Last Filed: 10/16/24 21:59>
Update Note
Update Note:
CT head without IV contrast
IMPRESSION:
No hemorrhage, hydrocephalus, or herniation.
Sequelae of chronic microvascular disease. No calvarial fracture.
Finalized at 5:18 AM EST
ED Attending Note
<JACOB Ross - Last Filed: 10/12/24 06:21>
-
Portions of this chart may have been created with voice recognition software.� Occasional wrong word or��sound alike� substitutions may have occurred due to the inherent limitations of voice recognition software.
<Zach Mauro DO - Last Filed: 10/16/24 21:59>
ED Attending Note
Patient seen and examined by attending physician: Yes
I performed the substantive portion of visit, reviewed & personally made and approve the management plan that is documented in note by myself or MATT.: Yes
ED Attending Note:
78-year-old female brought in by EMS for fall. She was walking back to her bed and got weak and fell striking her head. She was not using her walker when she fell but she felt weak. She denies loss of consciousness though she did suffer a
laceration. Patient has acute on chronic back pain and feels that this back pain contributed to her fall. According to she has been falling more frequently recently. Patient was seen in the emergency department 2 days ago for diarrhea and
dehydration and overall weakness. She received a liter and half of fluids and went home. She currently still reports having. She has started Imodium and that has seemed to help. Patient was seen in conjunction with the PA student. I have
reviewed and agree with the history and treatment plan presented. On my independent physical exam, patient is awake, alert, and oriented x3, hard of hearing. 2 cm linear diagonal laceration to the right forehead. Heart is regular rate rhythm.
Lungs are clear to auscultation bilaterally without wheezing present. Abdomen is soft and nontender. Moves all 4 extremities. Skin is warm and dry. She does show signs of dehydration on physical exam.
Given her frequent falls and her frequent weakness possibly due to diarrhea, patient will be brought in for further hydration, observation and possible rehab assignment.
Discharge Plan
Departure
Patient Disposition: Admit
Date of Disposition: 10/12/24
Time of Disposition: 05:54
Admit to: Telemetry
Presentation/result/management discussed w/ accepting MD/DO: Hospitalist
Discharge Problem:
Weakness, Chronic back pain, Diabetes, Acute dehydration, Laceration
Interventions
Interventions:
*Risk Screen - Suicide Last Done: 10/12/24 03:55
*General Assessment Last Done: 10/12/24 05:01
*Neglect/Abuse Screening Last Done: 10/12/24 03:55
ED- Fall Risk Assessment Last Done: 10/12/24 05:01
*ED COVID-19 Vaccine History Last Done: 10/12/24 03:55
*Nursing Disposition Last Done: 10/12/24 12:36
ED-Musculoskeletal Assessment Last Done: 10/12/24 05:01
ED- Neurological Assessment Last Done: 10/12/24 05:01
ED-Skin Assessment Last Done: 10/12/24 05:01
Discharge Date and Time
Discharge Date/Time: 10/12/24 12:36
[2024-10-12] MEDS: NSS 1000 IV ×3 (04:44→21:35)
[2024-10-12 05:01] LABS: % Basophils 0.2 % (0-2); % Eosinophils 0.2 % (0-6); % Immature Granulocytes 0.9 % (0-0.5); % Lymphocytes 8.8 % (20.5-51.1); % Monocytes 8.9 % (1.7-9.3); Absolute Immature Granulocytes 0.1 10^3/uL (0-0.05); Absolute Lymphocytes 0.5 10^3/uL (1.2-3.4); Absolute Monocytes 0.5 10^3/uL (0.1-0.6); Absolute Neutrophils 4.4 10^3/uL (1.4-6.5); Hematocrit 35.4 % (37.0-47.0); Hemoglobin 12.3 g/dL (12.0-16.0); Mean Corp Hgb Conc. 34.7 g/dL (33.0-37.0); Mean Corpuscular Hgb 29.7 pg (27.0-31.0); Mean Corpuscular Volume 85.5 fL (81.0-99.0); Mean Platelet Volume 11.1 fL (7.4-10.4); Nucleated Red Blood Cells % 0 %; Platelet Count 139 10^3/uL (130-400); Red Blood Cell Count 4.14 10^6/uL (4.20-5.40); Red Cell Dist. Width 12.8 % (11.5-14.5); White Blood Cell Count 5.5 10^3/uL (4.8-10.8)
[2024-10-12 05:14] LABS: INR 1.02; PT 13.9 Sec (11.4-14.6)
[2024-10-12 05:15] LABS: APTT 32.3 Sec (23.4-35.0)
[2024-10-12 05:23] LABS: ALT (SGPT) 44 U/L (0-35); AST (SGOT) 65 U/L (14-36); Albumin 3.9 g/dl (3.5-5.0); Alkaline Phosphatase 142 U/L (38-126); Blood Urea Nitrogen 28 mg/dl (7-17); Calcium 9.7 mg/dl (8.4-10.2); Carbon Dioxide 24 mmol/L (22-30); Chloride 100 mmol/L (98-107); Estimated Creatinine Clearance 46 ml/min; Glucose 246 mg/dl (70-99); Potassium 3.6 mmol/L (3.5-5.1); Sodium 137 mmol/L (135-145); Total Bilirubin 1.2 mg/dl (0.2-1.3); Total Protein 6.9 g/dl (6.3-8.2); eGFR > 60.00
[2024-10-12] MEDS: TYLENOL 1000 MG PO (05:56)
[2024-10-12 07:10] LABS: Urine Albumin Trace (Neg - Trace); Urine Bilirubin Negative (Negative); Urine Character Clear (Clear); Urine Color Yellow; Urine Glucose 3+ (Negative); Urine Ketone 2+ (Negative); Urine Leukocyte Trace (Negative); Urine Nitrite Negative (Negative); Urine Occult Blood Trace (Negative); Urine Specific Gravity 1.015 (<1.030); Urine Urobilinogen Negative (Neg - 1+)
[2024-10-12 07:41] LABS: COVID-19 Antigen Negative (Negative)
[2024-10-12 08:19] LABS: Urine Mucus Few
[2024-10-12 08:22] LABS: Urine Red Blood Cell 0-2 /HPF (0-2); Urine White Cell 40-50 /HPF (0-5)
--- NOTE | 2024-10-12 09:23 | HPS.HSE ---
Family Physician
-
Family Physician: Sabra Bey
Chief Complaint
-
Fall
History of Present Illness
Patient is a pleasant 78 years old with a history of colon cancer, hypertension, hyperlipidemia, GERD, diabetes who came to the ER today after fall at home, patient hit her head with 2 cm laceration on the right forehead.
Patient was here on October 09 with diarrhea and discharged home on Imodium.
Patient noted to have fever 1 time in the ER.
Patient was complaining of left-sided flank pain which seems to be chronic but getting worse last couple days.
Denies chest pain or shortness of breath, no nausea or vomiting.
at bedside help with history taking.
Patient will be admitted under hospitalist service
Medical History
Past Medical History
Past Medical History: Reports Cancer and Other (Cancer, GERD, HTN, Hypercholesterolemia, NIDDM and Other)
Past Surgical History: Reports Other (Cholecystectomy, Orthopedic and Urological (litho))
Social History
Tobacco: Non-smoker
Personal:
Living: With Family
Family History
Family History: Not pertinent
Allergies / Home Medications
Allergies reflects when Allergies were last updated in [facility].
Home Medications with original date entered in [facility]
Allergy/Medication List:
Allergies
Allergy/AdvReac Type Severity Reaction Status Date / Time
ibuprofen Allergy Itching Verified 10/12/24 03:47
Home Medications
atorvastatin 20 mg tablet 20 mg PO HS High cholesterol 09/24/19
sertraline 100 mg tablet 100 mg PO HS Mental Health/Anxiety 09/24/19
aspirin 81 mg tablet,delayed release 81 mg PO DAILY Blood clot prevention/tx 08/12/22
furosemide 20 mg tablet (Lasix) 20 mg PO DAILYPRN PRN edema 01/05/23
loperamide 2 mg capsule 2 mg PO BID #0 caps 02/03/23
Lactobac no.2-Bifidobac no.1-S. thermo 112.5 billion cell capsule (Visbiome) 2 cap PO DAILY 10/12/24
amlodipine 5 mg tablet 5 mg PO DAILY 10/12/24
carvedilol 12.5 mg tablet 12.5 mg PO BID 10/12/24
glimepiride 2 mg tablet 2 mg PO DAILY 10/12/24
inulin-sorbitol 2 gram chewable tablet 2 tab PO DAILY 10/12/24
levothyroxine 50 mcg tablet 50 mcg PO DAILY 10/12/24
pantoprazole 40 mg tablet,delayed release 40 mg PO DAILY 10/12/24
potassium chloride 10 mEq tablet,extended release 10 meq PO HS 10/12/24
therapeutic multivitamin 1 tab PO DAILY 10/12/24
Review of Systems
-
History Source: Patient and Family
A 12 point ROS was completed and negative except as noted: Yes
Constitutional: Reports Fever and Fatigue; Denies Weight Gain, Weight Loss or Sleep Disturbance
EENT: Denies Tearing, Sore Throat, Mouth Pain, Mouth Swelling or Runny Nose
Respiratory: Denies Cough, Hemoptysis or Trouble Breathing
Cardiac: Denies Chest Pain, Diaphoresis, Palpitations or Syncope
Abdomen/GI: Denies Abdominal Pain, Nausea, Vomiting, Diarrhea, Constipated, Bloody Stools or Black Stools
: Denies Dysuria, Frequency, Flank Pain, Incontinence, Difficulty Voiding, Urgency, Bleeding or Dark Urine
Musculoskeletal: Reports Muscle Pain and Other (back pain); Denies Joint Pain, Joint Swelling, Muscle Stiffness or Edema
Skin: Denies Itching or Rash
Neurological: Denies Dizzy, Headache, Weakness or Numbness
Endocrine: Denies Polyuria, Polydipsia or Temp Intolerance
Hematologic/Lymphatic: Denies Bleeding, Swollen Glands or Bruising
Psych: Reports Calm; Denies Depression, Anxiety or Panic Disorder
Physical Exam
Vital Signs
Vital Signs
Temp Pulse Resp BP Pulse Ox
98.9 F 74 16 126/56 92
10/12/24 09:16 10/12/24 09:02 10/12/24 09:02 10/12/24 09:00 10/12/24 09:00
Physical Exam
General: Well Developed, Well Nourished, No Apparent Distress, Comfortable, Good Appetite and Other; No Pain, Chills or Sweats
HEENT: NormoCephalic, Moist mucous membranes, Atraumatic, Good Dentition, PERRLA, Nose Appears Normal, Ears Appear Normal and Hearing Impaired
Respiratory: Clear
Cardiac: S1/S2 and Regular Rhythm
Breast: Deferred by me
GI: Soft, Non Tender, Non Distended and Normal Bowel Sounds
Genito-urinary: Deferred by me
Musculoskeletal: No Clubbing, No Cyanosis and No Edema
Skin: Warm; No Rash, Jaundice, Ulcers, Lesions or Decubitus Ulcers
Neuro: Awake, Alert, Oriented, AO x 3, No Motor Deficits, Nonfocal/grossly intact and Cranial Nerves Intact
Hematologic/Lymphatic: No Lymphadenopathy
Psych: Calm
Laboratory Results
-
10/12/24 04:42
10/12/24 04:42
Laboratory Results
PT 13.9 Sec (11.4-14.6) 10/12/24 04:42
INR 1.02 10/12/24 04:42
APTT 32.3 Sec (23.4-35.0) 10/12/24 04:42
Total Bilirubin 1.2 mg/dl (0.2-1.3) 10/12/24 04:42
AST 65 U/L (14-36) H 10/12/24 04:42
ALT 44 U/L (0-35) H 10/12/24 04:42
Alkaline Phosphatase 142 U/L (38-126) H 10/12/24 04:42
Data Reviewed
-
Diagnostic Radiology: Report Reviewed by me
CT Scan: Report Reviewed by me
Medical Tests (Nuc Med, Echo, EKG etc): Report Reviewed by me
Lab Data: Labs Reviewed by me
Old Records: Reviewed
Impression/Plan
-
IMPRESSION:
Patient is a pleasant 78 years with a history of colon cancer, hypertension, hyperlipidemia, GERD, diabetes who came to the ER today after fall at home, patient hit her head with 2 cm laceration on the right forehead. Found to have UTI, back pain.
PLAN:
Ambulatory dysfunction/status post fall.
Back pain contributing in the fall.
Recent ER visit with diarrhea which currently improved.
PT/OT consult.
Social service for discharge planning
UTI.
Patient had 1 episode of fever in the ER.
Urine culture pending.
Continue Rocephin
Acute on chronic back pain.
History of kidney stone.
Small pericardial effusion.
Bibasilar subsegmental atelectasis and small right lower lobe consolidation, latter of which could represent pneumonia.
Small bilateral nonobstructing renal calculi. No gross findings to suggest obstructive uropathy, evaluation of the distal ureters markedly limited by beam hardening artifact from left hip arthroplasty.
Likely simple left renal cyst. This could be confirmed with ultrasound.
Sigmoid diverticulosis.
Prior cholecystectomy.
Splenomegaly
- patient denies coughing, but had fever, will add xithromax to rocephin.
History of hypertension
Continue home meds
History of diabetes mellitus
Continue home medication
Insulin sliding scale
Diabetic diet
Hemoglobin A1c
History of hypothyroidism
Continue levothyroxine
History of depression.
Continue sertraline
History of hyperlipidemia
Continue statin
Recent diarrhea illness
Continue Imodium
CODE STATUS: Full code
DVT prophylaxis: Lovenox
Diet: Regular diet
[2024-10-12] MEDS: LIDOCAINE 4% PATCH 1 PATCH TOPICAL (10:32)
[2024-10-12] MEDS: COREG 12.5 MG PO ×2 (10:50→21:28)
[2024-10-12] MEDS: PROTONIX 40 MG PO (10:50)
[2024-10-12] MEDS: ASPIR LOW (ENTERIC COATED) 81 MG PO (10:50)
[2024-10-12] MEDS: SYNTHROID 50 MCG PO (10:51)
[2024-10-12] MEDS: AMARYL 2 MG PO (10:51)
[2024-10-12] MEDS: NORVASC 5 MG PO (10:52)
[2024-10-12] MEDS: STERILE WATER FOR INJECTION 10 ML IV (10:56)
[2024-10-12] MEDS: ROCEPHIN 1000 MG IV (10:56)
[2024-10-12] MEDS: TYLENOL 650 MG PO ×3 (12:13→21:27)
[2024-10-12] MEDS: ZITHROMAX 500 MG PO (12:13)
--- NOTE | 2024-10-12 15:08 | PTCARENOTE ---
Pt arrived to 337-1 from ED. Pulled over to bed from stretcher. Purewick removed at time of admission. Non stick pad on R forehead suture site. AAOx2, confused, disoriented to place. Calm, cooperative. Fall alarm placed.
[2024-10-12] MEDS: LOVENOX 40 MG SC (16:34)
[2024-10-12] MEDS: IMODIUM 2 MG PO (21:27)
[2024-10-12] MEDS: KCL 10 MEQ PO (21:32)
[2024-10-12] MEDS: ZOLOFT 100 MG PO (21:32)
[2024-10-12] MEDS: LIPITOR 20 MG PO (21:32)
[2024-10-13] VITALS (8 sets, daily range): BP systolic 61–110; BP diastolic 46–58
[2024-10-13] MEDS: TYLENOL PO ×2 (00:01→11:07)
[2024-10-13] MEDS: SYNTHROID 50 MCG PO (05:03)
[2024-10-13] MEDS: TYLENOL 650 MG PO ×4 (05:03→21:28)
[2024-10-13 07:55] LABS: Hematocrit 26.7 % (37.0-47.0); Hemoglobin 9.4 g/dL (12.0-16.0); Mean Corp Hgb Conc. 35.2 g/dL (33.0-37.0); Mean Corpuscular Hgb 30.5 pg (27.0-31.0); Mean Corpuscular Volume 86.7 fL (81.0-99.0); Mean Platelet Volume 12.3 fL (7.4-10.4); Platelet Count 91 10^3/uL (130-400); Red Blood Cell Count 3.08 10^6/uL (4.20-5.40); Red Cell Dist. Width 13.3 % (11.5-14.5); White Blood Cell Count 5.6 10^3/uL (4.8-10.8)
[2024-10-13 08:06] LABS: ALT (SGPT) 30 U/L (0-35); AST (SGOT) 39 U/L (14-36); Albumin 2.6 g/dl (3.5-5.0); Alkaline Phosphatase 102 U/L (38-126); Blood Urea Nitrogen 24 mg/dl (7-17); Calcium 8.3 mg/dl (8.4-10.2); Carbon Dioxide 20 mmol/L (22-30); Chloride 107 mmol/L (98-107); Estimated Creatinine Clearance 52 ml/min; Glucose 230 mg/dl (70-99); Potassium 3.1 mmol/L (3.5-5.1); Sodium 137 mmol/L (135-145); Total Bilirubin 1.3 mg/dl (0.2-1.3); Total Protein 5.1 g/dl (6.3-8.2); eGFR > 60.00
--- NOTE | 2024-10-13 08:29 | W.PN.HOSP.TC ---
Today's Communication/Plan
-
see bold
Assessment / Plan
Assessment / Plan
HPI: pleasant 78 years with a history of colon cancer, hypertension, hyperlipidemia, GERD, diabetes who came to the ER today after fall at home, patient hit her head with 2 cm laceration on the right forehead. Found to have UTI, back pain.
A/P:
Ambulatory dysfunction/status post fall.
Back pain contributing in the fall.
Recent ER visit with diarrhea which currently improved.
PT/OT - rec STR, CM on board
UTI, possible pneumonia
Patient had 1 episode of fever in the ER.
Urine culture growing 50,000 colonies of staph
Chest x-ray negative, CT of the abdomen and pelvis does show possible pneumonia
Patient reports dysuria, continue Rocephin/azithromycin day 2
Acute on chronic back pain.
Suspect from degenerative disc disease exacerbated by fall
CT negative for acute fracture or dislocation
Tylenol scheduled, lidocaine patches, PT as above
History of hypertension
Patient hypotensive while working with PT
Discontinue Norvasc 5 mg daily, reduce Coreg from 12.5 mg twice a day to 3.125 mg twice a day
Check daily orthostatic vital signs
Hypokalemia
Replete by oral, recheck a.m.
Hypomagnesemia
Replete by IV, recheck a.m.
History of diabetes mellitus
Continue glimepiride 2 mg daily
Insulin sliding scale
Diabetic diet
Hemoglobin A1c
History of hypothyroidism
Continue levothyroxine
History of depression.
Continue sertraline
History of hyperlipidemia
Continue statin
Recent diarrhea illness
Continue Imodium
DVT prophylaxis�Lovenox
Full code
Updated on phone 10/13
Total time spent to see the patient on the floor, examine the patient, review data and lab results, discuss treatment plan with patient, nursing staff around 55 minutes.
Physical Exam
General: No acute distress
HEENT: Normocephalic, Atraumatic, EOMI, MMM
Respiratory: Clear to Auscultation bilaterally
Cardiac: Normal S1/S2, Regular Rate and Rhythm
GI: Soft, Nontender, Nondistended, Normal Bowel Sounds
Extremities: No Clubbing, Cyanosis, or Edema
Neuro: Nonfocal/Grossly Intact
Psych: Calm, Cooperative
Anticipated Discharge: 24 - 48 hours
Subjective/Interval History
-
Date of Service: October 13, 2024
Patient complains of back pain and dysuria. Her back pain is the same. No nausea, no vomiting. No fever.
Objective Data
-
Labs:
Laboratory Results
10/13/24
07:05
WBC 5.6
Hgb 9.4 L D
Hct 26.7 L
Plt Count 91 L D
Sodium 137
Potassium 3.1 L
Chloride 107
Carbon Dioxide 20 L
BUN 24 H
Creatinine 0.9
Glucose 230 H
Calcium 8.3 L
Total Bilirubin 1.3
AST 39 H
ALT 30
Alkaline Phosphatase 102
Vital Signs:
Vital Signs
Temp Pulse Resp BP Pulse Ox
97.6 F 74 18 109/56 95
10/13/24 03:42 10/13/24 03:42 10/13/24 03:42 10/13/24 03:42 10/13/24 03:42
I&O
10/12/24 10/13/24 10/14/24
06:59 06:59 06:59
Intake Total 1000 / 1000 1460 / 1460
Balance 1000 / 1000 1460 / 1460
[2024-10-13 09:12] LABS: Magnesium 1.5 mg/dl (1.6-2.3)
[2024-10-13] MEDS: ZITHROMAX 500 MG PO (11:00)
[2024-10-13] MEDS: PROTONIX 40 MG PO (11:00)
[2024-10-13] MEDS: ASPIR LOW (ENTERIC COATED) 81 MG PO (11:00)
[2024-10-13] MEDS: AMARYL 2 MG PO (11:01)
[2024-10-13] MEDS: COREG 12.5 MG PO (11:01)
[2024-10-13] MEDS: NORVASC 5 MG PO (11:01)
[2024-10-13] MEDS: VISBIOME 2 CAP PO (11:01)
[2024-10-13] MEDS: IMODIUM 2 MG PO ×2 (11:01→21:28)
[2024-10-13] MEDS: LIDOCAINE 4% PATCH 1 PATCH TOPICAL (11:02)
[2024-10-13] MEDS: ROCEPHIN 1000 MG IV (11:03)
[2024-10-13] MEDS: STERILE WATER FOR INJECTION 10 ML IV (11:03)
[2024-10-13] MEDS: KCL 40 MEQ PO ×2 (11:03→16:55)
[2024-10-13] MEDS: NSS 1000 IV (11:06)
--- NOTE | 2024-10-13 16:00 | PTCARENOTE ---
Received report from therapy about pt's performance and hypotension during therapy. Reviewed pt meds - TT hospitalist regarding hypotension and meds received this morning, also hgb drop. Coreg and norvasc held going forward and hemetest stools
ordered. No stool at this time.
--- NOTE | 2024-10-13 16:20 | CM ---
Met with patient and her at the bedside; initial assessment completed
AL[facility] form explained; signed @ 1600
Pharmacy verified: Danny @ [id number] [facility], [place]
Patient lives w/ her in a one floor home; 1 step to enter; bath has stall shower w/ grab bar and shower chair
PLOF: reported that prior to fall, patient was independent with ADLs (he assisted when she got tired); ambulated w/ Rolling walker or cane; no longer drives
DME: [employer]
SNF stay at [facility] 2021; Home Health services in 2021
Transport to be determined
Plan: CM will continue to monitor and support DC needs
[2024-10-13 16:42] LABS: Glucose - Point of Care 278 mg/dl (70-99)
[2024-10-13] MEDS: MAGNESIUM SULFATE 50 IV (16:56)
[2024-10-13] MEDS: LOVENOX 40 MG SC (16:57)
[2024-10-13] MEDS: NOVOLOG FLEXPEN-MODERATE RESISTANCE 5 UNITS SC (16:58)
[2024-10-13 21:17] LABS: Glucose - Point of Care 226 mg/dl (70-99)
[2024-10-13] MEDS: COREG PO (21:24)
[2024-10-13] MEDS: KCL 10 MEQ PO (21:27)
[2024-10-13] MEDS: ZOLOFT 100 MG PO (21:28)
[2024-10-13] MEDS: LIPITOR 20 MG PO (21:28)
[2024-10-14] VITALS (7 sets, daily range): BP systolic 106–144; BP diastolic 48–72; PULSE 73–79
[2024-10-14] MEDS: TYLENOL PO ×3 (01:07→09:25)
[2024-10-14] MEDS: NSS 1000 IV ×2 (03:08→15:48)
[2024-10-14] MEDS: SYNTHROID 50 MCG PO (05:38)
[2024-10-14 06:21] LABS: Blood Urea Nitrogen 23 mg/dl (7-17); Calcium 8.8 mg/dl (8.4-10.2); Carbon Dioxide 21 mmol/L (22-30); Chloride 110 mmol/L (98-107); Estimated Creatinine Clearance 52 ml/min; Glucose 157 mg/dl (70-99); Iron 28 ug/dl (37-170); Potassium 4.4 mmol/L (3.5-5.1); Sodium 138 mmol/L (135-145); eGFR > 60.00
[2024-10-14 06:30] LABS: Percent Saturation 15 % (20-50); Total Iron Binding Capacity 176 ug/dl (265-497)
[2024-10-14 06:34] LABS: Mean Corp Hgb Conc. 34.4 g/dL (33.0-37.0); Mean Corpuscular Hgb 29.9 pg (27.0-31.0); Mean Platelet Volume 12.3 fL (7.4-10.4); Platelet Count 119 10^3/uL (130-400); Red Blood Cell Count 3.68 10^6/uL (4.20-5.40); Red Cell Dist. Width 13.5 % (11.5-14.5); White Blood Cell Count 6.1 10^3/uL (4.8-10.8)
[2024-10-14 07:23] LABS: Folate 17.6 ng/ml (2.76-20); Vitamin B12 928 pg/ml (239-931)
--- NOTE | 2024-10-14 07:42 | W.PN.HOSP.TC ---
Today's Communication/Plan
-
see bold
Assessment / Plan
Assessment / Plan
HPI: pleasant 78 years with a history of colon cancer, hypertension, hyperlipidemia, GERD, diabetes who came to the ER today after fall at home, patient hit her head with 2 cm laceration on the right forehead. Found to have UTI, back pain.
A/P:
-Ambulatory dysfunction/status post fall
-Laceration on forehead status post sutures
Back pain contributing in the fall.
Recent ER visit with diarrhea which currently improved.
PT/OT - rec STR, CM on board
Need to remove sutures in 7-10 days from placement
-UTI, possible pneumonia
Patient had 1 episode of fever in the ER.
Urine culture growing 50,000 colonies of staph
Chest x-ray negative, CT of the abdomen and pelvis does show possible pneumonia
Patient reports dysuria and mild SOB, continue Rocephin/azithromycin day 3
-Acute on chronic back pain.
Suspect from degenerative disc disease exacerbated by fall
CT negative for acute fracture or dislocation
Tylenol scheduled, lidocaine patches, tramadol/oxy prn, PT as above
-History of hypertension
Patient hypotensive while working with PT
Discontinue Norvasc 5 mg daily, reduced Coreg from 12.5 mg twice a day to 3.125 mg twice a day 10/13
Check daily orthostatic vital signs
-Hypokalemia
Repleted and resolved
-Hypomagnesemia
Repleted and resolved
-Anemia
Iron studies suggestive of iron deficiency anemia
Start ferrous sulfate
-History of diabetes mellitus
Continue glimepiride 2 mg daily, SSI, carb controlled diet
History of hypothyroidism
Continue levothyroxine
History of depression.
Continue sertraline
History of hyperlipidemia
Continue statin
Recent diarrhea illness
Continue Imodium
DVT prophylaxis�Lovenox
Full code
Updated on phone 10/13
Total time spent to see the patient on the floor, examine the patient, review data and lab results, discuss treatment plan with patient, nursing staff around 50 minutes.
Physical Exam
General: No acute distress
HEENT: Normocephalic, laceration on right forehead with sutures in place, EOMI, MMM
Respiratory: Clear to Auscultation bilaterally
Cardiac: Normal S1/S2, Regular Rate and Rhythm
GI: Soft, Nontender, Nondistended, Normal Bowel Sounds
Extremities: No Clubbing, Cyanosis, or Edema
Neuro: Nonfocal/Grossly Intact
Psych: Calm, Cooperative
Anticipated Discharge: 24 - 48 hours
Subjective/Interval History
-
Date of Service: October 13, 2024
Objective Data
-
Labs:
Laboratory Results
10/13/24
07:05
WBC 5.6
Hgb 9.4 L D
Hct 26.7 L
Plt Count 91 L D
Sodium 137
Potassium 3.1 L
Chloride 107
Carbon Dioxide 20 L
BUN 24 H
Creatinine 0.9
Glucose 230 H
Calcium 8.3 L
Total Bilirubin 1.3
AST 39 H
ALT 30
Alkaline Phosphatase 102
Vital Signs:
Vital Signs
Temp Pulse Resp BP Pulse Ox
97.4 F 68 18 100/56 93
10/13/24 13:17 10/13/24 13:17 10/13/24 13:17 10/13/24 13:17 10/13/24 13:17
I&O
10/12/24 10/13/24 10/14/24
06:59 06:59 06:59
Intake Total 1000 / 1000 1460 / 1460
Balance 1000 / 1000 1460 / 1460
[2024-10-14 07:53] LABS: Glucose - Point of Care 167 mg/dl (70-99)
[2024-10-14] MEDS: VISBIOME 2 CAP PO (09:20)
[2024-10-14] MEDS: TYLENOL 1000 MG PO ×3 (09:20→21:07)
[2024-10-14] MEDS: ZITHROMAX 500 MG PO (09:20)
[2024-10-14] MEDS: ULTRAM 50 MG PO (09:20)
[2024-10-14] MEDS: ASPIR LOW (ENTERIC COATED) 81 MG PO (09:21)
[2024-10-14] MEDS: PROTONIX 40 MG PO (09:21)
[2024-10-14] MEDS: IMODIUM 2 MG PO ×2 (09:24→21:07)
[2024-10-14] MEDS: COREG 3.125 MG PO ×2 (09:24→21:08)
[2024-10-14] MEDS: AMARYL 2 MG PO (09:32)
[2024-10-14] MEDS: LIDOCAINE 4% PATCH 1 PATCH TOPICAL (09:33)
[2024-10-14 10:00] LABS: Glycohemoglobin (HgbA1c) 8.5 % (4.0-5.6)
[2024-10-14] MEDS: ROCEPHIN 1000 MG IV (12:05)
[2024-10-14] MEDS: STERILE WATER FOR INJECTION 10 ML IV (12:05)
[2024-10-14 12:45] LABS: Glucose - Point of Care 232 mg/dl (70-99)
[2024-10-14] MEDS: NOVOLOG FLEXPEN-MODERATE RESISTANCE 3 UNITS SC (13:31)
[2024-10-14 17:47] LABS: Glucose - Point of Care 257 mg/dl (70-99)
[2024-10-14] MEDS: NOVOLOG FLEXPEN-MODERATE RESISTANCE 5 UNITS SC (18:40)
[2024-10-14] MEDS: LOVENOX 40 MG SC (18:40)
[2024-10-14] MEDS: LIPITOR 20 MG PO (21:07)
[2024-10-14] MEDS: ZOLOFT 100 MG PO (21:07)
[2024-10-14] MEDS: KCL 10 MEQ PO (21:08)
[2024-10-15] MEDS: SYNTHROID 50 MCG PO (05:05)
[2024-10-15 05:37] LABS: Hemoglobin 10.5 g/dL (12.0-16.0); Mean Corp Hgb Conc. 33.9 g/dL (33.0-37.0); Mean Corpuscular Hgb 29.8 pg (27.0-31.0); Mean Corpuscular Volume 88.1 fL (81.0-99.0); Mean Platelet Volume 11.4 fL (7.4-10.4); Platelet Count 138 10^3/uL (130-400); Red Blood Cell Count 3.52 10^6/uL (4.20-5.40); Red Cell Dist. Width 13.9 % (11.5-14.5); White Blood Cell Count 4.5 10^3/uL (4.8-10.8)
[2024-10-15 06:02] LABS: Blood Urea Nitrogen 18 mg/dl (7-17); Calcium 8.6 mg/dl (8.4-10.2); Carbon Dioxide 21 mmol/L (22-30); Chloride 111 mmol/L (98-107); Estimated Creatinine Clearance 58 ml/min; Glucose 199 mg/dl (70-99); Potassium 4.3 mmol/L (3.5-5.1); Sodium 138 mmol/L (135-145); eGFR > 60.00
[2024-10-15 06:36] VITALS: BP 124/62
[2024-10-15 07:46] LABS: Glucose - Point of Care 191 mg/dl (70-99)
[2024-10-15] MEDS: LIDOCAINE 4% PATCH 1 PATCH TOPICAL (07:57)
[2024-10-15] MEDS: COREG 3.125 MG PO ×2 (07:57→21:10)
[2024-10-15] MEDS: IMODIUM 2 MG PO ×2 (07:58→21:12)
[2024-10-15] MEDS: AMARYL 2 MG PO ×2 (07:58→21:10)
[2024-10-15] MEDS: ZITHROMAX 500 MG PO (07:58)
[2024-10-15] MEDS: TYLENOL 1000 MG PO ×3 (07:58→21:13)
[2024-10-15] MEDS: ULTRAM 50 MG PO (07:59)
[2024-10-15] MEDS: PROTONIX 40 MG PO (07:59)
[2024-10-15] MEDS: ASPIR LOW (ENTERIC COATED) 81 MG PO (07:59)
[2024-10-15] MEDS: NOVOLOG FLEXPEN-MODERATE RESISTANCE 1 UNITS SC (09:27)
[2024-10-15] MEDS: VISBIOME 2 CAP PO (09:27)
[2024-10-15 09:39] VITALS: BMI 22.8
--- NOTE | 2024-10-15 11:04 | W.PN.HOSP.TC ---
Today's Communication/Plan
-
Increase oral DM medicine
c/w Tylenol, give Tramadol
Assessment / Plan
Assessment / Plan
HPI: pleasant 78 years with a history of colon cancer, hypertension, hyperlipidemia, GERD, diabetes who came to the ER today after fall at home, patient hit her head with 2 cm laceration on the right forehead. Found to have UTI, back pain.
A/P:
-Ambulatory dysfunction/status post fall
-Laceration on forehead status post sutures
Back pain contributing in the fall.
Recent ER visit with diarrhea which currently improved.
PT/OT - rec STR, CM on board
Need to remove sutures in 7-10 days from placement
-UTI, not pneumonia
Patient had 1 episode of fever in the ER.
Urine culture growing 50,000 colonies of staph
Chest x-ray negative, CT of the abdomen and pelvis does show possible pneumonia
Patient reports dysuria and mild SOB, s/p 3 days of empiric Rocephin/azithromycin.
-Acute on chronic back pain.
Uncontrolled this morning, give one dose Tramadol
Suspect from degenerative disc disease exacerbated by fall
CT negative for acute fracture or dislocation
Tylenol scheduled, lidocaine patches, tramadol/oxy prn, PT as above
-History of primary hypertension
Patient hypotensive while working with PT
Discontinue Norvasc 5 mg daily, reduced Coreg from 12.5 mg twice a day to 3.125 mg twice a day 10/13
Check daily orthostatic vital signs
-Hypokalemia
Repleted and resolved
-Hypomagnesemia
Repleted and resolved
-Anemia
Iron studies suggestive of iron deficiency anemia
Start ferrous sulfate
-History of diabetes mellitus
Uncontrolled. HGB A1C 8.5
Increase oral glimepiride 2 mg daily, SSI, carb controlled diet
History of hypothyroidism
Continue levothyroxine
History of depression.
Continue sertraline
History of hyperlipidemia
Continue statin
Recent diarrhea illness
Continue Imodium
DVT prophylaxis�Lovenox
Full code
Updated on phone 10/13
Total time spent to see the patient on the floor, examine the patient, review data and lab results, discuss treatment plan with patient, nursing staff around 55 minutes.
Physical Exam
General: No acute distress
HEENT: Normocephalic, laceration on right forehead with sutures in place, EOMI, MMM
Respiratory: Clear to Auscultation bilaterally
Cardiac: Normal S1/S2, Regular Rate and Rhythm
GI: Soft, Nontender, Nondistended, Normal Bowel Sounds
Extremities: No Clubbing, Cyanosis, or Edema
Neuro: Nonfocal/Grossly Intact
Psych: Calm, Cooperative
Anticipated Discharge: Within 24 hours
Subjective/Interval History
-
Date of Service: October 15, 2024
No sob
No chest pain
reports back pain
Objective Data
-
Labs:
Laboratory Results
10/15/24
05:15
WBC 4.5 L
Hgb 10.5 L
Hct 31.0 L
Plt Count 138
Sodium 138
Potassium 4.3
Chloride 111 H
Carbon Dioxide 21 L
BUN 18 H
Creatinine 0.8
Glucose 199 H
Calcium 8.6
Vital Signs:
Vital Signs
Temp Pulse Resp BP Pulse Ox
98.0 F 77 20 124/62 97
10/15/24 06:36 10/15/24 07:57 10/15/24 06:36 10/15/24 07:57 10/15/24 06:36
I&O
10/14/24 10/15/24 10/16/24
06:59 06:59 06:59
Intake Total 1260 / 1260 480 / 480
Balance 1260 / 1260 480 / 480
[2024-10-15 11:39] LABS: Glucose - Point of Care 256 mg/dl (70-99)
[2024-10-15 11:45] VITALS: BMI 22.3
[2024-10-15] MEDS: ROCEPHIN 1000 MG IV (11:54)
[2024-10-15] MEDS: STERILE WATER FOR INJECTION 10 ML IV (11:54)
[2024-10-15] MEDS: NOVOLOG FLEXPEN-MODERATE RESISTANCE 5 UNITS SC ×2 (14:15→18:00)
[2024-10-15 14:58] VITALS: BP 124/66
--- NOTE | 2024-10-15 15:31 | CM ---
CM reviewed chart and ADC tomorrow
Bedside meeting with pt and spouse
SNF recs and PAC provided
1st choice is [facility], additional referrals to be sent to [facility]
PASRR completed and referrals sent
Pt will have qualifying stay tomorrow
Discharge Disposition- SNF
[2024-10-15 16:36] LABS: Glucose - Point of Care 252 mg/dl (70-99)
[2024-10-15] MEDS: LOVENOX 40 MG SC (18:00)
[2024-10-15] MEDS: KCL 10 MEQ PO (21:12)
[2024-10-15] MEDS: LIPITOR 20 MG PO (21:12)
[2024-10-15] MEDS: ZOLOFT 100 MG PO (21:12)
[2024-10-15 21:39] LABS: Glucose - Point of Care 173 mg/dl (70-99)
[2024-10-15 23:00] VITALS: BP 141/71
[2024-10-16] MEDS: SYNTHROID 50 MCG PO (05:22)
[2024-10-16] MEDS: ULTRAM 25 MG PO ×2 (05:32→14:01)
[2024-10-16 07:45] VITALS: BP 164/79
[2024-10-16 07:47] LABS: Hemoglobin 10.9 g/dL (12.0-16.0); Mean Corpuscular Hgb 29.3 pg (27.0-31.0); Mean Corpuscular Volume 88.7 fL (81.0-99.0); Mean Platelet Volume 11.1 fL (7.4-10.4); Platelet Count 176 10^3/uL (130-400); Red Blood Cell Count 3.72 10^6/uL (4.20-5.40); Red Cell Dist. Width 13.8 % (11.5-14.5); White Blood Cell Count 4.8 10^3/uL (4.8-10.8)
[2024-10-16] MEDS: LIDOCAINE 4% PATCH 1 PATCH TOPICAL (07:47)
[2024-10-16 07:49] LABS: Blood Urea Nitrogen 12 mg/dl (7-17); Calcium 9.1 mg/dl (8.4-10.2); Carbon Dioxide 24 mmol/L (22-30); Chloride 107 mmol/L (98-107); Estimated Creatinine Clearance 66 ml/min; Glucose 147 mg/dl (70-99); Potassium 4.3 mmol/L (3.5-5.1); Sodium 138 mmol/L (135-145); eGFR > 60.00
[2024-10-16] MEDS: VISBIOME 2 CAP PO (07:57)
[2024-10-16] MEDS: COREG 3.125 MG PO ×2 (07:57→21:13)
[2024-10-16] MEDS: TYLENOL 1000 MG PO ×3 (07:57→21:12)
[2024-10-16] MEDS: IMODIUM 2 MG PO ×2 (07:57→21:13)
[2024-10-16] MEDS: AMARYL 2 MG PO ×2 (07:58→21:13)
[2024-10-16] MEDS: ASPIR LOW (ENTERIC COATED) 81 MG PO (07:58)
[2024-10-16] MEDS: PROTONIX 40 MG PO (07:58)
[2024-10-16 08:11] LABS: Glucose - Point of Care 177 mg/dl (70-99)
[2024-10-16] MEDS: NOVOLOG FLEXPEN-MODERATE RESISTANCE 1 UNITS SC ×3 (10:00→17:31)
--- NOTE | 2024-10-16 10:46 | PN.CDI ---
CDI
- -
CDI:
Physician Documentation Request
Admit Date: 10/13/24 16:12
Dear Doctor Juliocesar,
Please review the following and provide your response in the progress notes.
Clinical Indicators:
The diagnosis of small pericardial effusion and atelectasis were included in the signed 10/12 CT abd/pelvis
- 10/12 CT abd/pelvis 'Small pericardial effusion'
- 'Bibasilar subsegmental atelectasis'
Please indicate in your progress notes if you are in agreement that the above diagnosis is valid for this patient:
____ - Small pericardial effusion and/or atelectasis are valid diagnoses (Please include them in your progress notes)
____ - Small pericardial effusion and/or atelectasis are not a valid diagnoses for this patient
____ - Other
Use of terms such as suspected, likely, concern for, or probable are acceptable for a diagnosis that is being evaluated, monitored or treated as if it exists and can be coded in the inpatient setting, when documented at the time of discharge.
Thank you,
Dannie Ramirez RN
CDI Specialist
Please use your independent medical judgment in providing your response.
[2024-10-16 11:02] VITALS: BP 148/71
--- NOTE | 2024-10-16 11:18 | PN.CDI ---
CDI
- -
CDI:
Physician Documentation Request
Admit Date: 10/13/24 16:12
Dear Doctor Juliocesar,
Please review the following and provide your response in the progress notes.
Clinical Indicators:
- On admission: Tmax 102.3, RR 20-30s
- 1000mg Tylenol x 8
- 650mg Tylenol x 7
- 10/15 PN 'UTI' - UC with MSSA
- 6L IVF given
- IVabx Ceftriaxone
Please clarify which of the following most accurately describes the status of the patient's infection:
Sepsis due to staph UTI
- Systemic manifestations of infection, with 2 or more SIRS criteria which include:
- Fever >100.4 degrees F or hypothermia < 96.8 degrees F
- Leukocytosis - WBC > 12,000 or leukopenia - WBC < 4,000 or > 10% bands
- Tachycardia > 90 beats per minute
- Tachypnea - RR > 20 breaths per minute or PaCO2 , 32mmHg
Source: Merck Manual 2013
- Indicate the known or suspected organism
- Indicate the known or suspected underlying infection, such as UTI, pneumonia or cellulitis
- Indicate if a suspected bacterial infection of unknown source
- Indicate if associated with an implanted device such as a F/C, PICC line, orthopedic hardware, etc.
Localized Infection Only, Without Systemic Illness, UTI
- indicate the site/source, such as UTI, pneumonia etc.
Other
Use of terms such as suspected, likely, concern for, or probable (associated with a specific diagnosis that is being evaluated, monitored, or treated as if it exists) are acceptable and can be coded in the inpatient setting, when documented at the
time of discharge.
Thank you,
Dannie Ramirez RN
CDI Specialist
Please use your independent medical judgment in providing your response.
--- NOTE | 2024-10-16 11:38 | W.PN.HOSP.TC ---
Addendum entered and electronically signed by Renan Gandara MD 10/16/24 17:15:
Addendum
was concerned about pt's chronic infrequent explosive diarrhea, noted after her bowel resection surgery for colon cancer at [facility] in 2022.
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 No abdominal pain or tenderness. No signs of fever or leukocytosis. Non- bloody.
Per pt, her surgeon recommended anti-diarrhea meds and high fiber diet
I d/w , he seemed to understand and appreciate the explanation.
Of note, patient was evaluated at by GI, felt could be related to chemotherapy she was taking at the time and recommended to c/w supportive care.
End
Original Note:
Today's Communication/Plan
-
MRI Thoracic area due to uncontrolled pain
Assessment / Plan
Assessment / Plan
HPI: pleasant 78 years with a history of colon cancer, hypertension, hyperlipidemia, GERD, diabetes who came to the ER today after fall at home, patient hit her head with 2 cm laceration on the right forehead. Found to have UTI, back pain.
A/P:
-Ambulatory dysfunction/status post fall
-Laceration on forehead status post sutures
no bleeding
f/w PT/OT, will need SNF
Need to remove sutures in 7-10 days from placement ( 10/18)
# Acute on chronic back pain
Pain mostly in thoracic area, seems to require opioid depside high dose Tylenol
will order MRI of thoracic spine
-UTI, not pneumonia
Localized Infection Only, Without Systemic Illness, UTI
Patient had 1 episode of fever in the ER.
Urine culture growing 50,000 colonies of staph
Chest x-ray negative, CT of the abdomen and pelvis does show possible pneumonia
Patient reports dysuria and mild SOB, s/p 3 days of empiric Rocephin/azithromycin.
-History of primary hypertension
Patient hypotensive while working with PT
Discontinue Norvasc 5 mg daily, reduced Coreg from 12.5 mg twice a day to 3.125 mg twice a day 10/13
Check daily orthostatic vital signs
# Small pericardial effusion and atelectasis seen on CT
No hemodynamic compromise
-Hypokalemia
Repleted and resolved
-Hypomagnesemia
Repleted and resolved
-Anemia
Iron studies suggestive of iron deficiency anemia
Started ferrous sulfate
-History of diabetes mellitus
Uncontrolled. HGB A1C 8.5
Increase oral glimepiride 2 mg daily, SSI, carb controlled diet
History of hypothyroidism
Continue levothyroxine
History of depression.
Continue sertraline
History of hyperlipidemia
Continue statin
Recent diarrhea illness
Continue Imodium
DVT prophylaxis�Lovenox
Full code
Updated on phone 10/13
Total time spent to see the patient on the floor, examine the patient, review data and lab results, discuss treatment plan with patient, nursing staff around 55 minutes.
Physical Exam
General: No acute distress
HEENT: Normocephalic, laceration on right forehead with sutures in place, EOMI, MMM
Respiratory: Clear to Auscultation bilaterally
Cardiac: Normal S1/S2, Regular Rate and Rhythm
GI: Soft, Nontender, Nondistended, Normal Bowel Sounds
Extremities: No Clubbing, Cyanosis, or Edema
MSK: complains of tenderness on thoracic spine
Neuro: Nonfocal/Grossly Intact
Psych: Calm, Cooperative
Anticipated Discharge: 24 - 48 hours
Subjective/Interval History
-
Date of Service: October 16, 2024
Objective Data
-
Labs:
Laboratory Results
10/16/24
06:47
WBC 4.8
Hgb 10.9 L
Hct 33.0 L
Plt Count 176 D
Sodium 138
Potassium 4.3
Chloride 107
Carbon Dioxide 24
BUN 12
Creatinine 0.7
Glucose 147 H
Calcium 9.1
Vital Signs:
Vital Signs
Temp Pulse Resp BP Pulse Ox
97.8 F 74 17 148/71 95
10/16/24 07:45 10/16/24 07:57 10/16/24 07:45 10/16/24 11:02 10/16/24 07:45
I&O
10/15/24 10/16/24 10/17/24
06:59 06:59 06:59
Intake Total 480 / 480 1440 / 1440
Balance 480 / 480 1440 / 1440
[2024-10-16 11:41] LABS: Glucose - Point of Care 196 mg/dl (70-99)
--- NOTE | 2024-10-16 14:28 | CM ---
CM reviewed pt with Dr Gandara- not ready for dc today
Update to [facility]- remains clinically accepted pending bed availability
Pt has qualifying stay
Discharge Disposition- [facility] pending bed
[2024-10-16 15:55] VITALS: BP 138/69
[2024-10-16 16:25] VITALS: BP 168/81; PULSE 71; O2SAT 98
[2024-10-16 16:44] LABS: Glucose - Point of Care 156 mg/dl (70-99)
[2024-10-16] MEDS: LOVENOX 40 MG SC (17:32)
[2024-10-16] MEDS: FIBERCON 1250 MG PO (21:13)
[2024-10-16] MEDS: LIPITOR 20 MG PO (21:13)
[2024-10-16] MEDS: ZOLOFT 100 MG PO (21:13)
[2024-10-16] MEDS: KCL 10 MEQ PO (21:13)
[2024-10-16 21:30] LABS: Glucose - Point of Care 198 mg/dl (70-99)
[2024-10-16 23:44] VITALS: BP 133/65
[2024-10-17] MEDS: SYNTHROID 50 MCG PO (05:45)
[2024-10-17 08:21] VITALS: BP 155/87
[2024-10-17 08:51] LABS: Glucose - Point of Care 163 mg/dl (70-99)
[2024-10-17] MEDS: FIBERCON 1250 MG PO (08:56)
[2024-10-17] MEDS: TYLENOL 1000 MG PO ×2 (08:56→16:24)
[2024-10-17] MEDS: LIDOCAINE 4% PATCH 1 PATCH TOPICAL (08:57)
[2024-10-17] MEDS: PROTONIX 40 MG PO (08:57)
[2024-10-17] MEDS: IMODIUM 2 MG PO (08:57)
[2024-10-17] MEDS: COREG 3.125 MG PO (08:57)
[2024-10-17] MEDS: VISBIOME 2 CAP PO (08:57)
[2024-10-17] MEDS: AMARYL 2 MG PO (08:58)
[2024-10-17] MEDS: ASPIR LOW (ENTERIC COATED) 81 MG PO (08:59)
[2024-10-17] MEDS: NOVOLOG FLEXPEN-MODERATE RESISTANCE 1 UNITS SC (09:02)
--- NOTE | 2024-10-17 11:59 | W.PN.HOSP.TC ---
Today's Communication/Plan
-
dc
Assessment / Plan
Assessment / Plan
HPI: pleasant 78 years with a history of colon cancer, hypertension, hyperlipidemia, GERD, diabetes who came to the ER today after fall at home, patient hit her head with 2 cm laceration on the right forehead. Found to have UTI, back pain.
A/P:
# -Ambulatory dysfunction/status post fall
-Laceration on forehead status post sutures
no bleeding
f/w PT/OT, will need SNF
Need to remove sutures in 7-10 days from placement ( 10/18)
# Acute on chronic back pain
Pain mostly in thoracic area, seems to require opioid depside high dose Tylenol
MRI of thoracic spine did not show lytic changes or acute fracture. Degenerative joint disease and canal stenosis. Continue with physical therapy, pain control. Can follow-up with Ortho or primary care doctor in the outpatient setting.
#History of diarrhea
was concerned about pt's chronic infrequent explosive diarrhea, noted after her bowel resection surgery for colon cancer at [facility] in 2022.
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 No abdominal pain or tenderness. No signs of fever or leukocytosis. Non- bloody. CT abdomen and pelvis did not show acute colitis.
Per pt, her surgeon recommended anti-diarrhea meds and high fiber diet
I d/w , he seemed to understand and appreciate the explanation.
Of note, patient was evaluated at by GI in 2022 for same issue, felt could be related to chemotherapy she was taking at the time and recommended to c/w supportive care.
# UTI, not pneumonia
Localized Infection Only, Without Systemic Illness, UTI
Patient had 1 episode of fever in the ER.
Urine culture growing 50,000 colonies of staph
Chest x-ray negative, CT of the abdomen and pelvis does show possible pneumonia
Patient reports dysuria and mild SOB, s/p 3 days of empiric Rocephin/azithromycin.
-History of primary hypertension
Patient hypotensive while working with PT but resolved.
Discontinue Norvasc 5 mg daily,
c/w Coreg 12.5 mg twice a day
Now she feels better and not dizzy upon standing or hypotensive.
# Small pericardial effusion and atelectasis seen on CT
No hemodynamic compromise
-Hypokalemia
Repleted and resolved
-Hypomagnesemia
Repleted and resolved
-Anemia
Iron studies suggestive of iron deficiency anemia
Started ferrous sulfate
-History of diabetes mellitus
was Uncontrolled. HGB A1C 8.5
Increased oral glimepiride 2 mg daily.
History of hypothyroidism
Continue levothyroxine
History of depression.
Continue sertraline
History of hyperlipidemia
Continue statin
Recent diarrhea illness
Continue Imodium
DVT prophylaxis�Lovenox
Full code
Updated on phone 10/13
Total dc time spent to see the patient on the floor, examine the patient, review data and lab results, discuss discharge plan with patient, , caser, nursing staff around 69 minutes.
Physical Exam
General: No acute distress
HEENT: Normocephalic, laceration on right forehead with sutures in place, EOMI, MMM
Respiratory: Clear to Auscultation bilaterally
Cardiac: Normal S1/S2, Regular Rate and Rhythm
GI: Soft, Nontender, Nondistended, Normal Bowel Sounds
Extremities: No Clubbing, Cyanosis, or Edema
MSK: complains of tenderness on thoracic spine
Neuro: Nonfocal/Grossly Intact
Psych: Calm, Cooperative
Anticipated Discharge: Today
Subjective/Interval History
-
Date of Service: October 17, 2024
No chest pain
No sob
No fevers
Objective Data
-
Vital Signs:
Vital Signs
Temp Pulse Resp BP Pulse Ox
98 F 79 16 155/87 94
10/17/24 08:21 10/17/24 08:57 10/17/24 08:21 10/17/24 08:57 10/17/24 08:21
I&O
10/16/24 10/17/24 10/18/24
06:59 06:59 06:59
Intake Total 1440 / 1440 1020 / 1020
Balance 1440 / 1440 1020 / 1020
[2024-10-17] MEDS: NOVOLOG FLEXPEN-MODERATE RESISTANCE SC ×2 (12:29→12:44)
[2024-10-17 12:39] LABS: Glucose - Point of Care 146 mg/dl (70-99)
--- NOTE | 2024-10-17 15:01 | W.DCSUMMARY ---
Discharge Summary
Discharge Data
Date of Admission: 10/13/24
Date of Discharge: 10/17/24
-
Pending Results: No
Hospital Course
78 years old female presented with acute on chronic back pain. She also reported flank pain. She did not have fever or leukocytosis. Scan of the abdomen and pelvis showed small bilateral nonobstructing renal calculi, splenomegaly, sigmoid
diverticulosis, simple left renal cyst. Patient was admitted to the hospital. Patient reported that her back pain and thoracic area was her main issue. MRI of the thoracic spine showed no evidence of acute fracture but mild levoconvex curvature
of the thoracic spine with multilevel mild degenerative changes and mild endplate degenerative edema of T8-T9, resultant mild canal stenosis of the T7-T8, T8-T9 and T9-T10. Patient did not have warning signs or symptoms as numbness. Patient was
seen by physical therapy recommended [facility] facility placement She was started on pain medications including Tylenol and low-dose tramadol. Patient and her reported history of a chronic infrequent explosive diarrhea that was
related to her bowel surgery. No abdominal pain or tenderness. Her clinical presentation was consistent with short-bowel syndrome. Patient reported that her colorectal doctor recommended high-fiber diet. Patient was given antidiarrheal, fiber
tablets and educated regarding the nature of this problem. Patient remained hemodynamically stable and was discharged in a stable condition.
Discharge Plan
-
Patient Disposition: [facility]SNF
Discharge Diagnosis/Procedures: Acute on chronic back pain , c/w Tylenol and PRN Tramadol
Diarrhea likely related to Short bowel syndrome.
Diabetes, incerase to wtice a day due to hyperglycemia. Monitor blood glucose closely With AC&HS Acu-checks.
MIGUEL A,c/w iron pills.
Diet: As tolerated
Additional Diets: High fiber diet
Referrals:
Sabra Bey MD [Family Provider] -
Prescriptions:
New
calcium polycarbophil [Fiber-Lax] 625 mg Tablet
1,250 mg PO BID Qty: 60 0RF
loperamide 2 mg Capsule
2 mg PO Q6HPRN PRN (Reason: diarrhea) Qty: 10 0RF
acetaminophen [Tylenol Extra Strength] 500 mg Tablet
1,000 mg PO TID Qty: 20 0RF
tramadol 50 mg Tablet
25 mg PO TIDPRN PRN (Reason: moderate to severe pain) Qty: 10 0RF
ferrous sulfate 325 mg (65 mg iron) tablet
325 mg PO DAILY Qty: 30 0RF
Continued
atorvastatin 20 MG tablet
20 mg PO HS
sertraline 100 MG tablet
100 mg PO HS
aspirin 81 mg Tablet,Delayed Release (Dr/Ec)
81 mg PO DAILY
furosemide [Lasix] 20 mg Tablet
20 mg PO DAILYPRN PRN (Reason: edema)
loperamide 2 mg Capsule
2 mg PO BID Qty: 0 0RF
Rx Instructions:
would stop if no BM x3 days, and if no BM x5 days would start laxative
carvedilol 12.5 mg Tablet
12.5 mg PO BID
pantoprazole 40 mg Tablet,Delayed Release (Dr/Ec)
40 mg PO DAILY
therapeutic multivitamin Tablet
1 tab PO DAILY
potassium chloride 10 mEq Tablet Extended Release
10 meq PO HS
levothyroxine 50 mcg Tablet
50 mcg PO DAILY
Visbiome 112.5 billion cell Capsule
2 cap PO DAILY
Changed
glimepiride 2 mg Tablet
2 mg PO BID Qty: 0 0RF
Discontinued
amlodipine 5 mg Tablet
5 mg PO DAILY
inulin-sorbitol 2 gram Tablet,Chewable
2 tab PO DAILY
Discharge Orders:
Discharge Patient (As Directed); Ordered 10/17/24
Ordered By: Renan Gandara
Discharge Date and Time
Discharge Date/Time: 10/17/24 18:05
Print Language: ICELANDIC
--- NOTE | 2024-10-17 15:12 | CM ---
entered order for discharge.
Spoke with pt and Lex in room. Explained that [facility] has a bed for her today. Pt said she wanted to go to another place.
Checked referral .[facility] has a bed today and accepted pt.
Spoke with pt and pt agreed to [facility] today .
agreed to drive pt to SNF.Address provided.
RN and unite lay out maker notified of above.
[facility]
report [phone]
fax [phone]
PLAN To [facility]
[2024-10-17 15:15] VITALS: BP 124/67
[2024-10-17] MEDS: PREVNAR 20 0.5 ML IM (16:21)
[2024-10-17 16:37] LABS: Glucose - Point of Care 217 mg/dl (70-99)
[2024-10-17] MEDS: NOVOLOG FLEXPEN-MODERATE RESISTANCE 3 UNITS SC (16:55)
[2024-10-17] MEDS: LOVENOX 40 MG SC (17:00)
== END 2024-10-17 17:49 | DRG 605 ==
LOC: 3 WEST ACU 16:12
PROVIDERS: Emergency Medicine; Family Medicine; ADMITTING PHYSICIAN General Practice; ATTENDING PHYSICIAN Internal Medicine; EMERGENCY PHYSICIAN Student in an Organized Health Care Education/Training Program; FAMILY PHYSICIAN Internal Medicine
PROC: 0HQ1XZZ Repair Face Skin, External Approach (ICD-10-PCS; 2024-10-13)
PROC: 3E0234Z Introduction of Serum, Toxoid and Vaccine into Muscle, Percutaneous Approach (ICD-10-PCS; 2024-10-17)
DX: S01.81XA Laceration without foreign body of other part of head, initial encounter (principal); N39.0 Urinary tract infection, site not specified; K90.821 Short bowel syndrome with colon in continuity; J98.11 Atelectasis; I31.39 Other pericardial effusion (noninflammatory); K21.9 Gastro-esophageal reflux disease without esophagitis; I10 Essential (primary) hypertension; E78.00 Pure hypercholesterolemia, unspecified; E11.9 Type 2 diabetes mellitus without complications; R29.6 Repeated falls; E86.0 Dehydration; E03.9 Hypothyroidism, unspecified; G89.29 Other chronic pain; F32.A Depression, unspecified; E87.6 Hypokalemia; E83.42 Hypomagnesemia; D50.9 Iron deficiency anemia, unspecified; F17.200 Nicotine dependence, unspecified, uncomplicated; M51.34 Other intervertebral disc degeneration, thoracic region; W18.39XA Other fall on same level, initial encounter; Z88.6 Allergy status to analgesic agent; Z79.84 Long term (current) use of oral hypoglycemic drugs; Z79.82 Long term (current) use of aspirin; Z79.890 Hormone replacement therapy; Z11.52 Encounter for screening for COVID-19; Z23 Encounter for immunization; Z85.038 Personal history of other malignant neoplasm of large intestine; Y92.009 Unspecified place in unspecified non-institutional (private) residence as the place of occurrence of the external cause
CPT/HCPCS: 12011; 51701; 70450; 71046; 72146; 74018; 74176; 80048; 80053; 81003; 81015; 82607; 82728; 82746; 82962; 83036; 83540; 83550; 83735; 85025; 85027; 85610; 85730; 87086; 87147; 87186; 87502; 87811; 90677; 93005; 96360; 96361; 97112; 97116; 97163; 97167; 97530; 97535; 99285; G0009

== ENCOUNTER → 2024-10-22 10:46 | Outpatient (REF) | payer OTHER, MEDICARE, SELFPAY ==
[2024-10-22 12:19] LABS: Hematocrit 31.7 % (37.0-47.0); Hemoglobin 10.4 g/dL (12.0-16.0); Mean Corp Hgb Conc. 32.8 g/dL (33.0-37.0); Mean Corpuscular Hgb 29.2 pg (27.0-31.0); Mean Platelet Volume 12.3 fL (7.4-10.4); Platelet Count 207 10^3/uL (130-400); Red Blood Cell Count 3.56 10^6/uL (4.20-5.40); Red Cell Dist. Width 13.9 % (11.5-14.5); White Blood Cell Count 9.2 10^3/uL (4.8-10.8)
[2024-10-22 12:42] LABS: ALT (SGPT) 28 U/L (0-35); AST (SGOT) 41 U/L (14-36); Albumin 3.2 g/dl (3.5-5.0); Alkaline Phosphatase 203 U/L (38-126); Blood Urea Nitrogen 10 mg/dl (7-17); Calcium 9.4 mg/dl (8.4-10.2); Carbon Dioxide 25 mmol/L (22-30); Chloride 104 mmol/L (98-107); Glucose 150 mg/dl (70-99); Magnesium 1.7 mg/dl (1.6-2.3); Potassium 4.1 mmol/L (3.5-5.1); Sodium 137 mmol/L (135-145); Total Bilirubin 0.9 mg/dl (0.2-1.3); Total Protein 6.6 g/dl (6.3-8.2); eGFR > 60.00
== END ==
LOC: OLABWHC 10:46
PROVIDERS: ATTENDING PHYSICIAN Family Medicine
DX: I95.1 Orthostatic hypotension (principal); K90.822 Short bowel syndrome without colon in continuity
CPT/HCPCS: 36415; 80053; 83735; 85027

== ENCOUNTER 2024-11-08 08:47 | Emergency (ER) | payer MEDICARE, OTHER, SELFPAY ==
[2024-11-08 09:06] VITALS: BP 154/84
--- NOTE | 2024-11-08 10:03 | EDRN ---
Pt's family member came to desk upset that [facility] has had no movement. Pt's family member made a suggestion about going to [facility].
--- NOTE | 2024-11-08 10:49 | ED.GENMED ---
History of Present Illness
General
Chief Complaint: Back Pain
Source: patient, records and spouse
Time Seen by Provider: 11/08/24 10:29
History of Present Illness
History of Present Illness:
79-year-old female with past medical history of previous colon cancer, hypertension, hyperlipidemia,, chronic back pain presenting to the emergency department for evaluation of continued back pain combined with intermittent abdominal similar to
symptoms that brought her here to the emergency department a little less than a month ago which required admission and ultimately to the nursing home facility. During that admission patient had CT scan done of the abdomen and pelvis which did
not show any acute abnormalities as well as an MRI of her thoracic spine which showed degenerative changes. Patient was prescribed tramadol which she is taking with intermittent relief but stating shortly after taking the medication within a few
hours her pain has returned. Patient states symptoms are not any different today but seem to be getting a little bit worse. She has yet to follow-up with her primary care provider and currently does not have any GI or sign painter helper.
Past History
Past History
ED Past Medical History: Cancer, GERD, HTN, Hypercholesterolemia, NIDDM and Other
ED Past Surgical History: Cholecystectomy, Orthopedic and Urological (litho)
Social History
Tobacco: Smoker
Alcohol: None
Drug: None
Personal:
Living: with family
Review of Systems
Review of Systems
All Other Systems: ROS reviewed and negative except as documented in HPI and ROS
Phy Exam
Physical Exam
Physical Exam:
GENERAL: Alert , in no apparent distress, thin and petite
EYE: clear conjunctiva b/l
HEAD: NCAT
ENT: o/p clr, dry mucous membranes
CARDIAC: Regular rate and rhythm .
LUNGS: Clear breath sounds bilaterally, no acute respiratory distress, no wheezes/rales/rhonchi
ABDOMEN: Soft, without focal tenderness, no r/g, no cvat
NEUROLOGICAL: Alert and oriented
SKIN: Warm and dry, skin intact.
MUSCULOSKELETAL: No edema, well perfused.
PSYCH: Normal and appropriate interaction.
Scores
Heart Failure Risk
Heart Failure Risk Score: Not Applicable
Heart Score for Chest Pain Patients
STEMI patient?: Not applicable
Withdrawal Assessment of Alcohol
Withdrawal Assessment Completed?: Not applicable
Course
Orders/Labs/Results
Orders:
Orders
11/08/24 10:42
Oxycodone/Acetaminophen [Percocet 5/325] 1 tablet PO NOW STA
11/08/24 11:05
Complete Blood Count/With Diff Urgent
Comprehensive Metabolic Panel Urgent
Lipase Urgent
11/08/24 13:05
Urinalysis Reflex To Culture Urgent
Date Specimen was Collected: 11/08/24
Time Specimen was Collected: 11:00
Abnormal Lab Results
11/08/24
11:05
RBC 4.17 L 10^6/uL
(4.20-5.40)
Hgb 11.8 L g/dL
(12.0-16.0)
Hct 35.2 L %
(37.0-47.0)
Abs Immat Gran (auto) 0.1 H 10^3/uL
(0-0.05)
Absolute Neuts (auto) 8.0 H 10^3/uL
(1.4-6.5)
Absolute Lymphs (auto) 1.1 L 10^3/uL
(1.2-3.4)
Immature Gran % 0.6 H %
(0-0.5)
Neutrophils % 81.8 H %
(42.2-75.2)
Lymphocytes % 11.0 L %
(20.5-51.1)
Sodium 134 L mmol/L
(135-145)
BUN 19 H mg/dl
(7-17)
Glucose 212 H mg/dl
(70-99)
AST 41 H U/L
(14-36)
Alkaline Phosphatase 212 H U/L
(38-126)
11/08/24 11:05
11/08/24 11:05
Vital Signs
Initial and Last Documented VS:
Initial Vital Signs
Temp Pulse Resp BP Pulse Ox
98.2 F 83 18 154/84 98
11/08/24 09:06 11/08/24 09:06 11/08/24 09:06 11/08/24 09:06 11/08/24 09:06
Last Documented Vital Signs
Temp Pulse Resp BP Pulse Ox
98.2 F 83 18 154/84 98
11/08/24 09:06 11/08/24 09:06 11/08/24 09:06 11/08/24 09:06 11/08/24 09:06
MDM/Problems Addressed
Differential Diagnosis Includes:
chronic back pain 2/2 degenerative changes, unspecified chronic abdominal pain, electrolyte derangement, anemia, less concern for acute infectious/surgical pathology
MDM/Problems Addressed:
79-year-old female presenting back to the emergency department for reevaluation of continued back and abdominal discomfort, patient stating that it just feels as if her entire body is in pain. Symptoms are the same from when she was admitted a
little over a month ago. She had a CT scan done in the emergency department of the abdomen pelvis which did not reveal any acute emergent pathologies. Had an MRI done of her thoracic spine which showed degenerative changes. She was ultimately
disposition to a nursing home facility. Released from nursing home facility this past Tuesday and has had continued symptoms at home. She is hemodynamically stable and afebrile here. She appears to be in her usual state of health. Her exam
is reassuring and that I do not suspect any acute emergent pathologies. Given her age combined with chronic medical conditions will repeat labs and urinalysis. Oral Percocet ordered for pain control. Will contact patient's primary care provider
Chronic conditions affecting care: Cancer
*Pulse Oximetry
Patient hypoxic: no
*Critical Care Note
Total Time (30-74mins, 75-104mins- exclusive of procedures): Not Applicable
Data Reviewed
Review of Other/Old Records Reveals: Labs, Records and Radiology Studies
Source: patient, records and spouse
Patient Management
Discussion with other providers: PCP
Escalation/DeEscalation of care consider admission/obs:
I spoke to patient's primary care provider's office staff and was able to make an appointment for November 14 at 9:30 in the morning. Updated patient on her appointment and notified both her and that if this time and they do not work for them
the need to contact the office back to reschedule. Patient's workup ultimately unremarkable with her labs appearing right around baseline. Patient did provide a urine sample but no longer wished to remain in the emergency department and wanted to
be discharged home. I did discuss with the patient that I would notify her if there are any abnormalities on her urine. She is aware of return precautions but otherwise stable for discharge.
ED Attending Note
-
Portions of this chart may have been created with voice recognition software.� Occasional wrong word or��sound alike� substitutions may have occurred due to the inherent limitations of voice recognition software.
Discharge Plan
Departure
Patient Disposition: Home (Routine Discharge)
Date of Disposition: 11/08/24
Time of Disposition: 13:13
Patient with high blood pressure during this ER visit?: Yes
Discharge Problem:
Back pain, Abdominal pain
Instructions: Back Pain
Prescriptions:
New
oxycodone-acetaminophen [Percocet] 5-325 mg tablet
1 tab PO Q6HPRN PRN (Reason: pain) Qty: 6 0RF
No Action
atorvastatin 20 MG tablet
20 mg PO HS
sertraline 100 MG tablet
100 mg PO HS
aspirin 81 mg Tablet,Delayed Release (Dr/Ec)
81 mg PO DAILY
furosemide [Lasix] 20 mg Tablet
20 mg PO DAILYPRN PRN (Reason: edema)
loperamide 2 mg Capsule
2 mg PO BID Qty: 0 0RF
Rx Instructions:
would stop if no BM x3 days, and if no BM x5 days would start laxative
carvedilol 12.5 mg Tablet
12.5 mg PO BID
pantoprazole 40 mg Tablet,Delayed Release (Dr/Ec)
40 mg PO DAILY
therapeutic multivitamin Tablet
1 tab PO DAILY
potassium chloride 10 mEq Tablet Extended Release
10 meq PO HS
levothyroxine 50 mcg Tablet
50 mcg PO DAILY
Visbiome 112.5 billion cell Capsule
2 cap PO DAILY
calcium polycarbophil [Fiber-Lax] 625 mg Tablet
1,250 mg PO BID Qty: 60 0RF
loperamide 2 mg Capsule
2 mg PO Q6HPRN PRN (Reason: diarrhea) Qty: 10 0RF
acetaminophen [Tylenol Extra Strength] 500 mg Tablet
1,000 mg PO TID Qty: 20 0RF
tramadol 50 mg Tablet
25 mg PO TIDPRN PRN (Reason: moderate to severe pain) Qty: 10 0RF
glimepiride 2 mg Tablet
2 mg PO BID Qty: 0 0RF
ferrous sulfate 325 mg (65 mg iron) tablet
325 mg PO DAILY Qty: 30 0RF
Referrals:
UNKNOWN - PT DOES,NOT KNOW [Family Provider] -
Activity Restrictions/Additional Instructions:
You have an appointment scheduled with your primary care provider on November 14 at 9:30 in the morning. If this date and time do not work for you please contact your family doctor back to reschedule the appointment
Interventions
Interventions:
*Risk Screen - Suicide Last Done: 11/08/24 09:19
*General Assessment Last Done: 11/08/24 11:05
*Neglect/Abuse Screening Last Done: 11/08/24 09:19
*ED COVID-19 Vaccine History Last Done: 11/08/24 11:05
ED-Musculoskeletal Assessment Last Done: 11/08/24 11:05
Discharge Date and Time
Print Language: AMHARIC
[2024-11-08] MEDS: PERCOCET 5/325 1 TABLET PO (10:58)
[2024-11-08 11:29] LABS: % Basophils 0.3 % (0-2); % Eosinophils 0.3 % (0-6); % Immature Granulocytes 0.6 % (0-0.5); % Neutrophils 81.8 % (42.2-75.2); Absolute Immature Granulocytes 0.1 10^3/uL (0-0.05); Absolute Lymphocytes 1.1 10^3/uL (1.2-3.4); Absolute Monocytes 0.6 10^3/uL (0.1-0.6); Hematocrit 35.2 % (37.0-47.0); Hemoglobin 11.8 g/dL (12.0-16.0); Mean Corp Hgb Conc. 33.5 g/dL (33.0-37.0); Mean Corpuscular Hgb 28.3 pg (27.0-31.0); Mean Corpuscular Volume 84.4 fL (81.0-99.0); Mean Platelet Volume 9.3 fL (7.4-10.4); Nucleated Red Blood Cells % 0 %; Platelet Count 302 10^3/uL (130-400); Red Blood Cell Count 4.17 10^6/uL (4.20-5.40); Red Cell Dist. Width 13.6 % (11.5-14.5); White Blood Cell Count 9.8 10^3/uL (4.8-10.8)
[2024-11-08 11:34] LABS: ALT (SGPT) 23 U/L (0-35); AST (SGOT) 41 U/L (14-36); Albumin 3.5 g/dl (3.5-5.0); Alkaline Phosphatase 212 U/L (38-126); Blood Urea Nitrogen 19 mg/dl (7-17); Calcium 9.8 mg/dl (8.4-10.2); Carbon Dioxide 27 mmol/L (22-30); Chloride 98 mmol/L (98-107); Glucose 212 mg/dl (70-99); Lipase 140 U/L (23-300); Potassium 4.2 mmol/L (3.5-5.1); Sodium 134 mmol/L (135-145); Total Bilirubin 0.8 mg/dl (0.2-1.3); Total Protein 7.5 g/dl (6.3-8.2); eGFR > 60.00
[2024-11-08 13:31] LABS: Urine Albumin 2+ (Neg - Trace); Urine Bilirubin 1+ (Negative); Urine Character Slightly Cloudy (Clear); Urine Color Yellow; Urine Glucose Negative (Negative); Urine Ketone Trace (Negative); Urine Leukocyte 2+ (Negative); Urine Nitrite Negative (Negative); Urine Occult Blood 2+ (Negative); Urine Urobilinogen 1+ (Neg - 1+)
[2024-11-08 14:14] LABS: Urine Mucus Moderate
[2024-11-08 14:25] LABS: Urine White Cell 80-90 /HPF (0-5)
== END 2024-11-08 13:32 | disposition home or self-care (01) ==
LOC: EMR 08:47
PROVIDERS: Physician Assistant Medical; EMERGENCY PHYSICIAN Emergency Medicine
DX: M54.9 Dorsalgia, unspecified (principal); R10.9 Unspecified abdominal pain; I10 Essential (primary) hypertension; E78.00 Pure hypercholesterolemia, unspecified; E11.9 Type 2 diabetes mellitus without complications; K21.9 Gastro-esophageal reflux disease without esophagitis; M47.814 Spondylosis without myelopathy or radiculopathy, thoracic region; G89.29 Other chronic pain; F17.200 Nicotine dependence, unspecified, uncomplicated; Z79.82 Long term (current) use of aspirin; Z85.038 Personal history of other malignant neoplasm of large intestine; Z90.49 Acquired absence of other specified parts of digestive tract; Z88.6 Allergy status to analgesic agent
CPT/HCPCS: 99283; 80053; 81003; 81015; 83690; 85025; 87086; 87147; 87186

== ENCOUNTER 2024-11-12 15:34 | Inpatient (IN) | payer MEDICARE, OTHER, SELFPAY ==
[2024-11-12 02:42] VITALS: BP 168/94
[2024-11-12 03:00] LABS: % Basophils 0.3 % (0-2); % Immature Granulocytes 0.4 % (0-0.5); % Lymphocytes 24.8 % (20.5-51.1); % Monocytes 7.4 % (1.7-9.3); % Neutrophils 66.1 % (42.2-75.2); Absolute Eosinophils 0.1 10^3/uL (0-0.7); Absolute Lymphocytes 1.8 10^3/uL (1.2-3.4); Absolute Monocytes 0.5 10^3/uL (0.1-0.6); Absolute Neutrophils 4.8 10^3/uL (1.4-6.5); Hemoglobin 11.8 g/dL (12.0-16.0); Mean Corp Hgb Conc. 32.8 g/dL (33.0-37.0); Mean Corpuscular Hgb 27.5 pg (27.0-31.0); Mean Corpuscular Volume 83.9 fL (81.0-99.0); Mean Platelet Volume 9.6 fL (7.4-10.4); Nucleated Red Blood Cells % 0 %; Platelet Count 273 10^3/uL (130-400); Red Blood Cell Count 4.29 10^6/uL (4.20-5.40); Red Cell Dist. Width 13.9 % (11.5-14.5); White Blood Cell Count 7.2 10^3/uL (4.8-10.8)
[2024-11-12 03:22] LABS: ALT (SGPT) 64 U/L (0-35); AST (SGOT) 93 U/L (14-36); Albumin 3.3 g/dl (3.5-5.0); Alkaline Phosphatase 244 U/L (38-126); Blood Urea Nitrogen 17 mg/dl (7-17); Calcium 9.7 mg/dl (8.4-10.2); Carbon Dioxide 30 mmol/L (22-30); Chloride 99 mmol/L (98-107); Glucose 127 mg/dl (70-99); Lipase 167 U/L (23-300); Sodium 137 mmol/L (135-145); Total Bilirubin 0.9 mg/dl (0.2-1.3); Total Protein 7.3 g/dl (6.3-8.2); eGFR > 60.00
--- NOTE | 2024-11-12 06:03 | PTCARENOTE ---
Addendum entered by Mis Thompson RN 11/15/24 02:50:
NOTE time incorrectly. 11/13/24 0030
Original Note:
Upon return from MRI, admission and assessment completed. Oriented to surroundings and plan of care discussed. Medicated for 10 R rib/abd/back pain per MD order (refer to MAR). Generalized sacrum reddened, blanchable and non blanchable -->
sacral silicone border foam placed and Q2 turns initiated. Pt incontinent of urine, pericare completed. #18 RAC patent. Call de la rosa within reach.
[2024-11-12 08:15] VITALS: BP 168/89
[2024-11-12 10:38] LABS: Magnesium 1.7 mg/dl (1.6-2.3)
--- NOTE | 2024-11-12 10:42 | ED.GENMED ---
History of Present Illness
General
Chief Complaint: Abdominal Pain
Source: patient, records and spouse
Time Seen by Provider: 11/12/24 09:42
History of Present Illness
History of Present Illness:
79-year-old female with past medical history of previous colon cancer, hypertension, hyperlipidemia, chronic back pain presenting back to the emergency department after being seen here 4 days ago for evaluation of continued upper abdominal pain and
back pain that is similar to multiple previous visits to the emergency department but gradually worsening throughout the weekend prompting her to come back. Patient was taking tramadol at home with some relief but states that over the weekend the
tramadol was not providing her with much relief either. Patient denying any new symptoms including fevers, chills, rigors, vomiting, bowel changes or urinary symptoms. It was noted when patient was seen in the ER 4 days ago that she had a recent
hospitalization for the same issue without any specific etiologies of her pain found. Patient had CT scan of the abdomen and pelvis as well as MRI of her thoracic spine. While in the ER a few days ago patient had an appointment arranged for her
with primary care provider but unfortunately this appointment has not taken place yet.
Past History
Past History
ED Past Medical History: Cancer, GERD, HTN, Hypercholesterolemia, NIDDM and Other
ED Past Surgical History: Cholecystectomy, Orthopedic and Urological (litho)
Social History
Tobacco: Smoker
Alcohol: None
Drug: None
Personal:
Living: with family
Review of Systems
Review of Systems
All Other Systems: ROS reviewed and negative except as documented in HPI and ROS
Phy Exam
Physical Exam
Physical Exam:
GENERAL: Alert , in no apparent distress but does appear uncomfortable, thin
EYE: clear conjunctiva b/l
HEAD: NCAT
ENT: o/p clr, dry mucous membranes
CARDIAC: Regular rate and rhythm .
LUNGS: Clear breath sounds bilaterally, no acute respiratory distress, no wheezes/rales/rhonchi
ABDOMEN: Soft, diffuse upper abd ttp, no r/g, no cvat
NEUROLOGICAL: Alert and oriented
SKIN: Warm and dry, skin intact.
MUSCULOSKELETAL: well perfused.
PSYCH: Normal and appropriate interaction.
Scores
Heart Failure Risk
Heart Failure Risk Score: Not Applicable
Heart Score for Chest Pain Patients
STEMI patient?: Not applicable
Withdrawal Assessment of Alcohol
Withdrawal Assessment Completed?: Not applicable
Course
Orders/Labs/Results
Orders:
Orders
11/12/24 02:51
C-Reactive Protein Urgent
Comment: ADDON
Complete Blood Count/With Diff Urgent
Comprehensive Metabolic Panel Urgent
Lipase Urgent
Magnesium Urgent
Comment: ADD
11/12/24 09:43
Urinalysis Reflex To Culture Urgent
Date Specimen was Collected: 11/12/24
Time Specimen was Collected: 11:18
11/12/24 09:54
Add On- LAB Urgent
Tests Added?: magnesium
11/12/24 10:40
0.9% Sodium Chloride 1000 ml [Nss] 1,000 ml IV BOLUS
Iohexol [Omnipaque] See Protocol PO NOW STA
Morphine Sulfate 2 mg IV NOW STA
Ondansetron Injectable [Zofran] 4 mg IV NOW STA
11/12/24 10:41
CT Abd/pel W Iv And Oral Contr Urgent
Comment:
Reason For Exam: upper abd pain, abnormal LFT, previous choley
11/12/24 10:44
Add On- LAB Urgent
Tests Added?: troponin
Electrocardiogram (*1) Urgent
Reason for Study: Abdominal Pain
EKG- Treatment ONCE
11/12/24 11:47
Troponin I Urgent
11/12/24 12:21
HYDROmorphone [Dilaudid] 0.5 mg IV NOW STA
11/12/24 14:42
Add On- LAB Urgent
Tests Added?: esr/crp
HYDROmorphone [Dilaudid] 0.5 mg IV NOW STA
11/12/24 14:44
Lactic Acid Q4H
Comment: CANCEL 2nd LACTIC ACID IF 1st LACTIC ACID IS LESS THAN 2
Blood Culture Q30M
HIWOT Source: Blood/Venous
Specimen Description:
Blood Culture Q30M
HIWOT Source: Blood/Venous
Specimen Description:
11/12/24 14:52
INFECTIOUS DISEASE CONSULT Routine
Consulting Provider: Steffanie Nelson
Was physician already notified: Yes
Neurosurgery Consult Routine
Consulting Provider: Staci Sosa
Was physician already notified: Yes
11/12/24 15:00
MR Thoracic Spine W/o & With Urgent
Comment:
Reason For Exam: T8/T9 osteo/disciits on CT scan
Recent pill cam endoscopy?: No
11/12/24 15:18
Admit/Transfer Patient As Directed
Co-Sign Provider:
Level of Care: Inpatient admission
Assign to:: Medical/Surgical
Physician / Group: luann
Diagnosis: osteomyelitis
Reason for Hospitalization: osteomyelitis
Expected length of stay greater than two midnights?: Yes
ELOS- Estimated Length of Stay in days: 3
I certify the patient meets the requirements for IP care: Yes
Erythrocyte Sed Rate Urgent
PRN Pain Medication Management As Directed
May give lesser potent ordered pain med per pt: Yes
preference::
Protocol:: Medication orders for pain may be administered in a
manner that supports deferring to patient preference
when the pt is:
- Requesting an ordered lesser potent pain medication.
Least to most potent pain medications are defined
as: acetaminophen < NSAID < tramadol < opioids
(morphine, oxycodone, hydromorphone).
- Requesting a lesser dose of the same medication IF
ORDERED.
- Requesting a less intrusive route of administration
if both routes are prescribed by the provider (PO <
IV).
11/12/24 15:20
Code Status As Directed
Resuscitation Status: Full Code
11/12/24 18:45
Lactic Acid Q4H
Comment: CANCEL 2nd LACTIC ACID IF 1st LACTIC ACID IS LESS THAN 2
Abnormal Lab Results
11/12/24
02:51
Hgb 11.8 L g/dL
(12.0-16.0)
Hct 36.0 L %
(37.0-47.0)
MCHC 32.8 L g/dL
(33.0-37.0)
Glucose 127 H mg/dl
(70-99)
AST 93 H U/L
(14-36)
ALT 64 H U/L
(0-35)
Alkaline Phosphatase 244 H U/L
(38-126)
Albumin 3.3 L g/dl
(3.5-5.0)
11/12/24 02:51
11/12/24 02:51
Vital Signs
Initial and Last Documented VS:
Initial Vital Signs
Temp Pulse Resp BP Pulse Ox
97.7 F 74 22 168/94 96
11/12/24 02:42 11/12/24 02:42 11/12/24 02:42 11/12/24 02:42 11/12/24 02:42
Last Documented Vital Signs
Temp Pulse Resp BP Pulse Ox
97.6 F 71 18 162/68 98
11/12/24 08:15 11/12/24 11:52 11/12/24 11:52 11/12/24 11:52 11/12/24 11:52
MDM/Problems Addressed
Differential Diagnosis Includes:
GERD, gastritis, retained gallstone/common bile duct stone, pancreatitis, malignancy, less concern for mesenteric ischemia, will recheck troponin and EKG to rule out atypical ACS presentation
MDM/Problems Addressed:
79-year-old female presenting back to the emergency department after being seen 4 days ago for the same upper abdominal pain that brought her here initially. Patient seen and admitted a little over a month ago for the same without specific etiology
found and was ultimately disposition to SNF. Does have a history of colon but currently not undergoing any treatments. Also previous cholecystectomy. Patient points to the left upper abdomen as where her pain is the most but states the entire
upper abdomen does hurt. Patient does have upward trending liver function tests but based off previous labs this appears to be a somewhat chronic issue but unclear as to if the increased LFTs have any significance for today. Patient does appear
uncomfortable so we will treat with morphine as she cannot take NSAIDs, Zofran and fluids ordered as well. Disposition pending
Chronic conditions affecting care: DM, HTN and Cancer
*Pulse Oximetry
Patient hypoxic: no
*Critical Care Note
Total Time (30-74mins, 75-104mins- exclusive of procedures): Not Applicable
Data Reviewed
Review of Other/Old Records Reveals: Labs, Records and Radiology Studies
Patient Management
Discussion with other providers: Hospitalist, [employer] and Radiologist
Escalation/DeEscalation of care consider admission/obs:
2:30 PM: Received notification from radiology that patient has suspected osteomyelitis/discitis within the lower thoracic spine. This was not seen on previous MRI done a little over 1 month ago.
Due to the abnormal CT finding I did notify hospitalist team for admission, infectious disease and neurosurgery were also notified via [employer] text. Will defer antibiotics at this time as ID and neurosurgery may prefer to aspirate/culture the wound
prior to initiation of medication. Hospitalist team accepts for continued evaluation and treatment. Patient still having continued pain despite multiple rounds IV pain meds. Additional 0.5mg IV dilaudid ordered
ED Attending Note
-
Portions of this chart may have been created with voice recognition software.� Occasional wrong word or��sound alike� substitutions may have occurred due to the inherent limitations of voice recognition software.
Discharge Plan
Departure
Patient Disposition: Admit
Date of Disposition: 11/12/24
Time of Disposition: 14:37
Presentation/result/management discussed w/ accepting MD/DO: Hospitalist
Discharge Problem:
Osteomyelitis of thoracic spine
Interventions
Interventions:
*Risk Screen - Suicide Last Done: 11/12/24 02:42
*General Assessment Last Done: 11/12/24 11:50
*Neglect/Abuse Screening Last Done: 11/12/24 02:42
ED- Fall Risk Assessment Last Done: 11/12/24 11:50
LU-Pinvjf-Sxweiixjkh Assessment Last Done: 11/12/24 11:50
[2024-11-12] MEDS: ZOFRAN 4 MG IV (11:22)
[2024-11-12] MEDS: MORPHINE SULFATE 2 MG IV (11:22)
[2024-11-12] MEDS: NSS 1000 IV (11:23)
[2024-11-12] MEDS: OMNIPAQUE 50 ML PO (11:23)
[2024-11-12 11:52] VITALS: BP 162/68
[2024-11-12] MEDS: DILAUDID 0.5 MG IV ×3 (12:26→22:33)
[2024-11-12 12:33] LABS: Troponin I < 0.012 ng/ml
--- NOTE | 2024-11-12 14:46 | HPS.HSE ---
Family Physician
-
Family Physician: NOT KNOW UNKNOWN - PT DOES
Chief Complaint
-
abdominal pain
History of Present Illness
79-year-old female with past medical history of previous colon cancer, hypertension, hyperlipidemia, chronic back pain presenting back to the emergency with generalized abdominal pain and back pain worsening for past few days. patient stated
worsening pain with any movement, touch. Patient denying any new symptoms including fevers, chills, rigors, vomiting, bowel changes or urinary symptoms. patient stated dizzy. denied MORENO or syncope. denied abdominal pain,n,v,d. denied dysuria or
hematuria.
CT abdomen pelvis with rregularity/fragmentation superior and anterior aspect of the T9 vertebral body with prominent surrounding soft tissues, new, suspicious for T8/T9 discitis and possible osteomyelitis.
admitting for further management.
Medical History
Past Medical History
Past Medical History: Reports Other
Additional Past Medical History:
Hyperlipidemia
Type 2 diabetes
Colorectal cancer
Hypertension
Chronic diastolic heart failure
Depression
Past Surgical History: Reports Other
Additional Past Surgical History:
Cholecystectomy
Hip replacement
Lumbar laminectomy
Social History
Tobacco: Non-smoker
Alcohol: None
Drug: None
Personal:
Living: With Family
Family History
Family History: Not pertinent
Allergies / Home Medications
Allergies reflects when Allergies were last updated in [email or web address].
Home Medications with original date entered in [email or web address]
Allergy/Medication List:
Allergies
Allergy/AdvReac Type Severity Reaction Status Date / Time
ibuprofen Allergy Itching Verified 11/12/24 02:44
Home Medications
atorvastatin 20 mg tablet 20 mg PO HS High cholesterol 09/24/19
sertraline 100 mg tablet 100 mg PO HS Mental Health/Anxiety 09/24/19
aspirin 81 mg tablet,delayed release 81 mg PO DAILY Blood clot prevention/tx 08/12/22
furosemide 20 mg tablet (Lasix) 20 mg PO DAILYPRN PRN edema 01/05/23
Lactobac no.2-Bifidobac no.1-S. thermo 112.5 billion cell capsule (Visbiome) 2 cap PO DAILY Supplement 10/12/24
carvedilol 12.5 mg tablet 12.5 mg PO BID Blood Pressure 10/12/24
levothyroxine 50 mcg tablet 50 mcg PO DAILY Thyroid 10/12/24
pantoprazole 40 mg tablet,delayed release 40 mg PO DAILY Gastrointestinal Issue 10/12/24
potassium chloride 10 mEq tablet,extended release 10 meq PO DAILY Supplement 10/12/24
therapeutic multivitamin 1 tab PO DAILY Supplement 10/12/24
acetaminophen 500 mg tablet (Tylenol Extra Strength) 1,000 mg (2 x 500 mg) PO TID #20 tabs 10/17/24
calcium polycarbophil 625 mg tablet (Fiber-Lax) 1,250 mg (2 x 625 mg) PO BID #60 tabs 10/17/24
loperamide 2 mg capsule 2 mg PO Q6HPRN PRN diarrhea #10 caps 10/17/24
tramadol 50 mg tablet 25 mg (1/2 x 50 mg) PO TIDPRN PRN moderate to severe pain #10 tabs 10/17/24
glipizide 5 mg tablet, extended release 24 hr 10 mg PO DAILY 11/12/24
Review of Systems
-
Constitutional: Reports No Symptoms
EENT: Reports No Symptoms
Respiratory: Reports No Symptoms
Cardiac: Reports No Symptoms
Abdomen/GI: Reports Abdominal Pain
: Reports No Symptoms
Musculoskeletal: Reports Other (back pain)
Skin: Reports No Symptoms
Neurological: Reports No Symptoms
Endocrine: Reports No Symptoms
Hematologic/Lymphatic: Reports No Symptoms
Psych: Reports No Symptoms
Physical Exam
Vital Signs
Vital Signs
Temp Pulse Resp BP Pulse Ox
97.6 F 71 18 162/68 98
11/12/24 08:15 11/12/24 11:52 11/12/24 11:52 11/12/24 11:52 11/12/24 11:52
Physical Exam
General: Well Developed, Well Nourished and No Apparent Distress
HEENT: NormoCephalic, Moist mucous membranes and Atraumatic
Respiratory: Clear
Cardiac: S1/S2 and Regular Rhythm; No Murmur or Rub
GI: Soft, Non Tender, Non Distended and Normal Bowel Sounds; No Organomegaly
Rectal: Deferred by Provider
Musculoskeletal: No Clubbing, No Cyanosis and No Edema
Skin: No Rash
Neuro: AO x 3 and Nonfocal/grossly intact
Psych: Calm
Laboratory Results
-
11/12/24 02:51
11/12/24 02:51
Laboratory Results
Total Bilirubin 0.9 mg/dl (0.2-1.3) 11/12/24 02:51
AST 93 U/L (14-36) H 11/12/24 02:51
ALT 64 U/L (0-35) H 11/12/24 02:51
Alkaline Phosphatase 244 U/L (38-126) H 11/12/24 02:51
Troponin I < 0.012 ng/ml 11/12/24 11:47
Lipase 167 U/L (23-300) 11/12/24 02:51
Data Reviewed
-
CT Scan: Report Reviewed by me
Lab Data: Labs Reviewed by me
Impression/Plan
-
# abdominal/back pain likely new osteomyelitis/discitis vs mus[place]kel[place] pain
-ID and neurosurgery consulted
-CT abdomen pelvis with impression of Irregularity/fragmentation superior and anterior aspect of the T9 vertebral body with prominent surrounding soft tissues, new, suspicious for T8/T9 discitis and possible osteomyelitis. Suggest Thoracic spine
MRI without and with contrast for more complete evaluation. Findings discussed by telephone with Drake Pablo PA-C at 1430 hours on November 12, 2024.Splenomegaly again seen. Subcentimeter low-attenuation splenic lesion too small to
characterize.Prior cholecystectomy. Slight prominence of the biliary tract which may be secondary to prior cholecystectomy. If warranted, further evaluation could be obtained with MRI/MRCP.
-obtain MRI thoracic and lumbar with and without.
-tramadol and Dilaudid prn for pain
-PT/OT consulted
#anemia of chronic disease
-hgb stable at 11.8
-no active bleeding
-ctm
#htn
-coreg continued with old parameter
# Chronic transaminitis
-AST 93 ALT 64, ALK 244
-continue to trend
#History of diabetes mellitus
-sliding scale
-CHO diet
#History of hypothyroidism
Continue levothyroxine
#GERD
-PPI continued
#History of depression.
-Continue sertraline
#History of hyperlipidemia
Continue statin
DVT prophylaxis�Lovenox
Full code
--- NOTE | 2024-11-12 15:05 | CON.ID ---
Consultation
-
Date/Time Consultation Requested: November 12, 2024 1438
Date/Time Consultation Performed: November 12, 2024 1510
Requesting Provider: Dr. Drake Pablo
Performing Provider: Dr. Rona Toribio
Reason for Consultation: Discitis/osteo
Chief Complaint / Past History
Chief Complaint
Weakness, severe back pain and upper abdominal pain
History of Present Illness
History obtained from at bedside as well as from patient. She is a 79-year-old female with diabetes mellitus, hypothyroidism, stage III colon cancer status post resection/chemo who presented to the ER today due to severe back pain,
abdominal pain and weakness. Patient was admitted to the hospital on October 12 after falls x 2 sustaining right forehead laceration. In the ER, she was febrile x 2. Patient was complaining of upper back pain and abdominal pain. Per
symptoms started after the fall. CAT scan of the abdomen and pelvis showed small right lower lobe consolidation. Urine culture grew 50,000 colony forming units of MSSA. She received 4 days of ceftriaxone and azithromycin. October 16, MRI of
thoracic spine without contrast showed no fracture, mild degenerative endplate edema of T8-T9 resulting in canal stenosis. Patient was then discharged to [facility] rehab on October 17. Per she had an episode of fever at rehab
unclear whether or not she was treated with antibiotic. She was discharged to home from rehab last week. She presented to the ER on November 08 due to worsening upper back pain and abdominal pain. She was discharged on Percocet. Of note, Ucx +
100K MSSA. Back pain and upper abdominal pain without improvement. She states she felt like her skin on the abdomen was ripped off. No rash or lesions. Patient continued to decline at home. She was not able to get up from bed. She was finally
brought to the ER today. CT of the abdomen pelvis without and with contrast shows irregularity/fragmentation of T9 vertebral body with prominent surrounding soft tissues suspicious for T8/T9 discitis and possible osteomyelitis. CRP 63. Currently
afebrile. Normal white count. Patient denies bowel or urinary incontinence. No urinary symptoms. No cough or shortness of breath. No fevers, chills or sweats. No headache or sinus congestion. No recent abx.
Past History
Additional Past Medical History:
HTN
DM2
CHF
Hypothyroidism
Thyroid nodule
Dyslipidemia
Depression
Stage III colon ca s/p colon resection (2021) and chemo ([facility])
Cholecystectomy
Lithotripsy
Allergy History:
ibuprofen Allergy (Verified 11/12/24 02:44)
Itching
Medications Reviewed: Yes
Current Antibiotics:
none
Social History
Tobacco: Non-Smoker
Alcohol: None
Drug: None
Personal:
Family History
Family History: Not Pertinent
Review of Systems
Review of Systems
General: Change in Appetite; Negative Fever or Chills
HEENT: Negative Stiff Neck, Sinus Problems, Headache or Pharyngitis
Cardiovascular: Negative Chest Pain or Dyspnea
Respiratory: Negative Dyspnea, Cough or Sputum Production
Gasteroenterology: Negative Nausea, Vomiting or Diarrhea
Genital / Urological: Negative Dysuria or Flank Pain
Endocrine: Weight Change (weight loss), Weakness and Fatigue
Skin / Hair / Nails: Negative Rash
Neurological: Negative Dizziness
All systems: All other systems were reviewed and were negative
Vital Signs
Temp Pulse Resp BP Pulse Ox
97.6 F 71 18 162/68 98
11/12/24 08:15 11/12/24 11:52 11/12/24 11:52 11/12/24 11:52 11/12/24 11:52
Physical Exam
Physical Exam
Constitutional: Acutely Ill, Chronically Ill and Cachetic
Eyes: No Conjunctival Hemorrhage and Sclera Anicteric
Oral: Other (dry mucous membrane)
Cardiovascular: Regular Rate and S1/S2
Pulmonary: Clear
Gastrointestinal: Soft, Tender (very tender upper abdomen/epigastrum), Non Distended and Normal Bowel Sounds
Genito-Urinary: Negative CVA Tenderness
Extremities: Negative Edema or Splinter Hemorrhage
Neurological: AO x 3 and Other (Able to move all 4 extremities); Negative Meningeal Signs
Lab / Diagnostic Study Results
11/12/24 02:51
11/12/24 02:51
Abs Immat Gran (auto) 0.0 10^3/uL (0-0.05) 11/12/24 02:51
Absolute Neuts (auto) 4.8 10^3/uL (1.4-6.5) 11/12/24 02:51
Absolute Lymphs (auto) 1.8 10^3/uL (1.2-3.4) 11/12/24 02:51
Absolute Monos (auto) 0.5 10^3/uL (0.1-0.6) 11/12/24 02:51
Absolute Basos (auto) 0.0 10^3/uL (0-0.2) 11/12/24 02:51
Immature Gran % 0.4 % (0-0.5) 11/12/24 02:51
Neutrophils % 66.1 % (42.2-75.2) 11/12/24 02:51
Lymphocytes % 24.8 % (20.5-51.1) 11/12/24 02:51
Monocytes % 7.4 % (1.7-9.3) 11/12/24 02:51
Eosinophils % 1.0 % (0-6) 11/12/24 02:51
Basophils % 0.3 % (0-2) 11/12/24 02:51
Microbiology Results
11/12/24 CT a/p: Irregularity/fragmentation superior and anterior aspect of the T9 vertebral body with prominent surrounding soft tissues, new, suspicious for T8/T9 discitis and possible osteomyelitis. Suggest Thoracic spine MRI without and with
contrast for more complete evaluation.
Assessment / Plan
# Worsening acute back pain/upper abd pain since early 10/12/2024
# T8/T9 edema concerning for discitis/osteo on CT
# Elevated CRP
# MSSA bacteria in urine x 2, untreated
# Intermittent fever
- Agree with blood cx's x2
- Agree with holding abx at this time.
- MRI wo and with contrast of thorax and lumbar spine
- IF MRI + discitis and if blood cx neg, recommend aspiration/biopsy of disc for culture, histology
- If blood cx + (suspect MSSA), can start abx then.
- Follow clinically
# Conditions [employer]
HTN
DM2
CHF
Hypothyroidism
Thyroid nodule
Dyslipidemia
Depression
Stage III colon ca s/p colon resection (2021) and chemo ([facility])
Cholecystectomy
Lithotripsy
Care Review
Plan reviewed with: Physician (Dr. Turner)
[2024-11-12 15:29] LABS: Lactic Acid 0.9 mmol/L (0.7-2.0)
[2024-11-12 15:52] VITALS: BP 144/72
[2024-11-12 19:01] VITALS: BP 167/81
--- NOTE | 2024-11-12 19:42 | PTCARENOTE ---
Pt received from ED via stretcher at change of shift. Pulled over to bed x2. MRI calling for study to be completed. Pt transported to MRI in bed via PCT.
[2024-11-12] MEDS: NOVOLOG FLEXPEN-LOW RESISTANCE SC (22:29)
[2024-11-12 22:31] VITALS: BMI 19.2
[2024-11-12] MEDS: LIPITOR 20 MG PO (22:34)
[2024-11-12] MEDS: COREG 12.5 MG PO (22:35)
[2024-11-12] MEDS: ZOLOFT 100 MG PO (22:35)
[2024-11-12 22:37] LABS: Glucose - Point of Care 83 mg/dl (70-99)
[2024-11-12 23:09] LABS: Erythrocyte Sed Rate 73 mm/hour (0-20)
[2024-11-12 23:31] VITALS: BP 163/85
[2024-11-12] MEDS: LOVENOX 40 MG SC (23:42)
[2024-11-13 05:47] LABS: Hematocrit 35.1 % (37.0-47.0); Hemoglobin 11.5 g/dL (12.0-16.0); Mean Corp Hgb Conc. 32.8 g/dL (33.0-37.0); Mean Corpuscular Volume 85.6 fL (81.0-99.0); Mean Platelet Volume 10.3 fL (7.4-10.4); Platelet Count 297 10^3/uL (130-400); Red Cell Dist. Width 13.8 % (11.5-14.5); White Blood Cell Count 7.6 10^3/uL (4.8-10.8)
[2024-11-13] MEDS: SYNTHROID 50 MCG PO (05:53)
[2024-11-13 06:48] LABS: Urine Albumin 1+ (Neg - Trace); Urine Bilirubin Negative (Negative); Urine Character Slightly Cloudy (Clear); Urine Color Yellow; Urine Glucose Negative (Negative); Urine Ketone 1+ (Negative); Urine Leukocyte 2+ (Negative); Urine Nitrite Positive (Negative); Urine Occult Blood 1+ (Negative); Urine Urobilinogen 1+ (Neg - 1+)
[2024-11-13 07:00] VITALS: BP 162/80
[2024-11-13 08:16] LABS: Urine Urothelial Cell 0-2 /LPF (FEW)
[2024-11-13 08:17] LABS: Urine White Cell 50-60 /HPF (0-5)
[2024-11-13 08:18] LABS: Urine Bacteria Moderate (Negative)
[2024-11-13 08:56] LABS: Glycohemoglobin (HgbA1c) 6.8 % (4.0-5.6)
[2024-11-13 08:56] LABS: Glucose - Point of Care 119 mg/dl (70-99)
[2024-11-13] MEDS: NOVOLOG FLEXPEN-LOW RESISTANCE SC (09:05)
[2024-11-13] MEDS: COREG 12.5 MG PO ×2 (09:06→19:57)
[2024-11-13] MEDS: KCL 10 MEQ PO (09:06)
[2024-11-13] MEDS: PROTONIX 40 MG PO (09:06)
[2024-11-13] MEDS: ASPIR LOW (ENTERIC COATED) 81 MG PO (09:06)
--- NOTE | 2024-11-13 09:50 | W.PN.ID1 ---
Date of Service
Date of Service: November 13, 2024
Today's Communication
See below.
Assessment / Plan
# Acute T8/T9 discitis/osteo with mild to moderate cord impingement.
# Elevated CRP
# MSSA bacteria in urine x 2, untreated
# Recent Intermittent fever
- Await blood cx's x2
- Continue to hold abx unless, bcx's positive
- MRI wo and with contrast of thorax and lumbar spine
- If blood cx's neg, aspiration/biopsy of T8-T9 for culture/histology
- Follow closely
# Conditions [employer]
HTN
DM2
CHF
Hypothyroidism
Thyroid nodule
Dyslipidemia
Depression
Stage III colon ca s/p colon resection (2021) and chemo ([facility])
Cholecystectomy
Lithotripsy
Chief Complaint
-: Other (Discitis)
Subjective / Review of Systems
Back and abd pain better controlled.
Vital Signs / Physical Exam
Vital Signs
Vital Signs
Temp Pulse Resp BP Pulse Ox
98.3 F 77 18 162/80 95
11/13/24 07:00 11/13/24 09:06 11/13/24 07:00 11/13/24 09:06 11/13/24 07:00
Physical Exam
Constitutional: No Acute Distress and Chronically Ill
Cardiovascular: Regular Rate and S1/S2
Pulmonary: Clear
Gastrointestinal: Tender
Genito-Urinary: Negative CVA Tenderness
Extremities: Negative Edema
Neurological: Other (Moves all 4 extremties); Negative Meningeal Signs
Objective Data
Lab Data
Lab Results
11/13/24 05:18
11/12/24 02:51
ESR 73 mm/hour (0-20) H 11/12/24 22:55
Lactic Acid Cancelled 11/12/24 18:45
Total Bilirubin 0.9 mg/dl (0.2-1.3) 11/12/24 02:51
AST 93 U/L (14-36) H 11/12/24 02:51
ALT 64 U/L (0-35) H 11/12/24 02:51
Alkaline Phosphatase 244 U/L (38-126) H 11/12/24 02:51
C-Reactive Protein 62.80 mg/L (0.0-10.00) H 11/12/24 02:51
Most recent labs reviewed.
Micro Results:
11/13/24 05:18 Urine Culture - Pending
Urine
11/12/24 14:44 Blood Culture - Pending
Blood/Venous
11/12/24 14:44 Blood Culture - Pending
Blood/Venous
11/12/24 CT a/p: Irregularity/fragmentation superior and anterior aspect of the T9 vertebral body with prominent surrounding soft tissues, new, suspicious for T8/T9 discitis and possible osteomyelitis. Suggest Thoracic spine MRI without and with
contrast for more complete evaluation.
11/12/24 MRI thorax wo and with contrast: There is T8-9 discitis with osteomyelitis in the adjacent T8 and T9 vertebral bodies and associated endplate destruction.
There is epidural extension of infection at this level with mild-moderate cord impingement
There is paraspinal extension at this level more prominent on the right than the left
11/12/24 MRI lumbar wo and with contrast: Multilevel lumbar dextroscoliosis with multilevel lumbar degenerative disc disease as outlined above.
[2024-11-13] MEDS: DILAUDID 0.5 MG IV ×2 (10:21→19:57)
[2024-11-13 11:41] VITALS: BP 124/71; PULSE 73; O2SAT 93
--- NOTE | 2024-11-13 12:32 | CON.NS ---
Consultation
-
Date/Time Consultation Performed: 11/13/2024
Performing Provider: Sheila
Chief Complaint
History of Present Illness
This is a neurosurgical consultation on a 79-year-old female who has active medical issues including hypertension, hyperlipidemia, chronic back pain. She has a past history of colon cancer. She presented with worsening abdominal pain and back pain
for several days. Of note, the patient was in the hospital in October and did have a CT of the abdomen/pelvis at that time. Patient had new CT which demonstrates recent lysis of the T8-T9 to space and adjacent endplates, suspicious for possible
osteomyelitis. Patient also reported significant tenderness to palpation of the abdomen. MRI of the thoracic, and lumbar spine were ordered to better assess T8/T9. Antibiotics and been on hold. Blood cultures were sent.
Patient seen and examined. is at bedside. denies that the patient has had any obvious weakness to lower extremities. She baseline, ambulates with a walker. She was ambulating up until she was admitted. Primarily, her difficulty
with ambulation, was secondary to severe back pain.
Review of Systems
-
A 10 point review of systems including constitutional, ENT, cardiovascular, respiratory, GI, , neurologic, gynecologic, hematologic, was performed, was negative, except for stated in HPI.
Medication and Allergies
Home Medications
Home Medications
�Medication �Instructions �Recorded
atorvastatin 20 mg tablet 20 mg PO HS High cholesterol 09/24/19
sertraline 100 mg tablet 100 mg PO HS Mental Health/Anxiety 09/24/19
aspirin 81 mg tablet,delayed 81 mg PO DAILY Blood clot 08/12/22
release prevention/tx
furosemide 20 mg tablet (Lasix) 20 mg PO DAILYPRN PRN edema 01/05/23
Lactobac no.2-Bifidobac no.1-S. 2 cap PO DAILY Supplement 10/12/24
thermo 112.5 billion cell capsule
(Visbiome)
carvedilol 12.5 mg tablet 12.5 mg PO BID Blood Pressure 10/12/24
levothyroxine 50 mcg tablet 50 mcg PO DAILY Thyroid 10/12/24
pantoprazole 40 mg tablet,delayed 40 mg PO DAILY Gastrointestinal 10/12/24
release Issue
potassium chloride 10 mEq 10 meq PO DAILY Supplement 10/12/24
tablet,extended release
therapeutic multivitamin 1 tab PO DAILY Supplement 10/12/24
acetaminophen 500 mg tablet 1,000 mg (2 x 500 mg) PO TID #20 10/17/24
(Tylenol Extra Strength) tabs
calcium polycarbophil 625 mg 1,250 mg (2 x 625 mg) PO BID #60 10/17/24
tablet (Fiber-Lax) tabs
loperamide 2 mg capsule 2 mg PO Q6HPRN PRN diarrhea #10 10/17/24
caps
tramadol 50 mg tablet 25 mg (1/2 x 50 mg) PO TIDPRN PRN 10/17/24
moderate to severe pain #10 tabs
glipizide 5 mg tablet, extended 10 mg PO DAILY 11/12/24
release 24 hr
Allergies
Allergies
Allergy/AdvReac Type Severity Reaction Status Date / Time
ibuprofen Allergy Itching Verified 11/12/24 02:44
Physical Exam
-
Exam:
Awake, alert, in moderate distress.
Cranial nerves II to XII are grossly intact. Motor: 5/5 strength bilaterally in upper extremities and lower extremities.
Sensation to light touch is intact in bilateral lower extremities.
Gait not tested.
Severe back pain upon mechanical movement
Head is normocephalic atraumatic
Neck is supple
Breathing nonlabored
Cardiac: Regular rate.
Abdomen is soft.
Extremities are warm.
MRI of the thoracic spine without contrast performed on 10/16/2024 was reviewed. This was compared with most recent MRI performed on 11/12/2024. In the interim, there has been development of extensive contrast-enhancement and STIR signal
hyperintensity noted of the T8-T9 disc space and intervening vertebral bodies/endplates. There is evidence of ventral epidural phlegmon/soft tissue which does abut to the ventral aspect of the cord at this level. No obvious signal change in the
cord is seen. Imaging is most consistent with likely T8-T9 osteodiscitis.
Problems
-
Problem Status Onset Code
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
Assessment / Plan
-
This is a 79-year-old female that presents with progressive thoracic back pain, in the setting of untreated MSSA UTI. MRI of the thoracic spine reveals T8-T9 likely osteodiscitis. ESR is 73. CRP is 62.8.
Recommend follow-up blood cultures and urine cultures. If specimen needed, agree with IR guided biopsy.
Start antibiotics as per infectious disease, when appropriate cultures have been obtained. Follow CRP to ensure appropriate antibiotic response.
Would favor at least 6 weeks of IV antibiotics, given extensive osteomyelitis involvement. And then can de-escalate per infectious disease depending upon response.
Given the patient has no obvious evidence of clinical neurological cord compression and has intact motor strength in lower extremities, do not recommend any urgent neurosurgical decompression.
Recommend TLSO brace via [facility], when patient is weightbearing and ambulatory for mechanical support/back pain.
[2024-11-13] MEDS: NOVOLOG FLEXPEN-LOW RESISTANCE 1 UNITS SC ×2 (13:11→18:08)
[2024-11-13] MEDS: ULTRAM 25 MG PO (13:16)
[2024-11-13 13:19] LABS: Glucose - Point of Care 158 mg/dl (70-99)
--- NOTE | 2024-11-13 13:26 | CM ---
CM met with pt and spouse bedside
Pt [facility] and spouse in wheelchair
They reside together at [address] [place] [id number]
Rancher with 1 CHUCK[address]
Pt ahs a wlakin shower with grab bars and shower chair
Was ambulating indep with a WW or SPC
Was recently discharged from [facility] on 11/02 and spouse has been helping since
PCP- Kathleen Head
Rx- Danny Miramontes
PT/OT with SNF recs
PASRR completed and referrals sent via [facility] is 1st choice
Discharge Disposition- SNF
--- NOTE | 2024-11-13 14:37 | W.PN.HOSP.TC ---
Today's Communication/Plan
-
Follow blood cultures, CBC and temperature curve
Defer against antibiotics for now
Analgesia as needed
PT eval
Assessment / Plan
Assessment / Plan
#Osteomyelitis/discitis of T8/T9 vertebra
-Has been hospitalized with recurrent back pain; previous imaging negative
-Upon previous ED visit did have MSSA positive urine culture, suspect these are related as MSSA uncommon urine species
-CT here with concern for osteomyelitis/discitis; MRI T-spine with extensive findings, L-spine unremarkable
-No fevers or leukocytosis though with elevated inflammatory markers; blood cultures x 2 on admission remain negative
-No clinical symptoms of cord impingement; evaluated by neurosurgery who recommends TLSO brace when weightbearing
-Defer against antibiotics for now, plan to initiate if cultures positive or symptomatic signs of infection present
-Planning for IR guided biopsy if blood cultures negative on final results
-Trend CBC, inflammatory markers, and temperature curve
-IV Dilaudid for severe breakthrough pain
#Transaminitis
-Has had mildly elevated AST, ALT, ALP since 2022; <2x ULN
-Suspect ALP is a bone etiology; cannot rule out underlying fatty liver
-Will trend LFTs here, consider RUQ US if worsening
-Avoid unnecessary hepatotoxic agents (ok to c/w statin)
#Hypertension
-No known history of hypertensive systemic disease
-Home medications include carvedilol 12.5 twice daily
-Blood pressure here slightly elevated secondary to pain
-Will continue to monitor, uptitrate regimen as needed
-Analgesia as above
#Hypothyroidism
-Unclear etiology, home medications include levothyroxine
-No signs or symptoms of thyroid dysfunction
#GERD
-Home regimen includes daily PPI
-No known history of Toure's esophagus or erosive disease
-No signs of breakthrough symptoms
#Hyperlipidemia
-Home regimen includes moderate intensity statin
-No known history of ASCVD
#T2DM
-Diet controlled; A1c 6.8%; no known history of microvascular disease
-Started on ISS with Accu-Cheks and carb controlled diet here
-BG goal 140-180
DVT prophylaxis: Lovenox
Diet: Diabetic
CODE STATUS: Full code
Anticipated Discharge: > 48 hours
Subjective/Interval History
-
Date of Service: November 13, 2024
Seen and examined at the bedside. No acute events reported overnight. AFVSS this morning
Labs remain without leukocytosis, blood cultures remain negative.
She denies any acute complaints. States her pain is tolerable, Dilaudid has been helpful
Objective Data
-
Labs:
Laboratory Results
11/13/24
05:18
WBC 7.6
Hgb 11.5 L
Hct 35.1 L
Plt Count 297
Vital Signs:
Vital Signs
Temp Pulse Resp BP Pulse Ox
98.3 F 77 18 162/80 95
11/13/24 07:00 11/13/24 09:06 11/13/24 07:00 11/13/24 09:06 11/13/24 07:00
Review of Systems
-
History Source: Patient
All other systems: Reviewed and negative
Physical Exam
-
General: Well Developed, No Apparent Distress, Comfortable and Other (Thin and frail appearing)
HEENT: Normocephalic, Atraumatic, Moist Mucous Membranes and Anicteric
Respiratory: Clear to Auscultation and Non Labored Respirations
Cardiac: Regular Rhythm and S1/S2; Negative Murmur, Rub or Gallop
GI: Soft, Nontender, Nondistended and Normal Bowel Sounds
Musculoskeletal: No Clubbing, No Cyanosis and No Edema
Skin: Warm, Dry and Normal Turgor; Negative Rash
Neuro: AO x 3, No Motor Deficits, Nonfocal/Grossly Intact, Central Nerve's Intact, No Sensory Deficits and DTR's Intact & Symmetrica
Psych: Calm
Data Reviewed
-
Labs: Labs Reviewed by me and Discussed with Patient
[2024-11-13 15:00] VITALS: BP 146/74
--- NOTE | 2024-11-13 16:25 | PTCARENOTE ---
Pt has positive blood cultures, Dr. Turner notified.
--- NOTE | 2024-11-13 17:40 | W.PN.UPDATE ---
Update Note
Progress Note Update
Preliminary blood cultures positive for Staphylococcus aureus. Suspected MSSA from osteodiscitis at T8/T9. Had urine culture a couple of days ago with MSSA growth, suspect same origin of infection. Spoke with infectious disease, will start IV
cefazolin 2 g every 8 hours empirically for MSSA bacteremia. Continue to follow cultures for sensitivities
--- NOTE | 2024-11-13 17:43 | PTCARENOTE ---
Patient ordered TLSO back brace. Message left for [facility] ([phone]) and face sheet and copy of order faxed to them at [phone].
[2024-11-13 18:05] LABS: Glucose - Point of Care 173 mg/dl (70-99)
[2024-11-13] MEDS: ANCEF 10 IV (18:09)
[2024-11-13] MEDS: LOVENOX 40 MG SC (18:09)
[2024-11-13 21:54] LABS: Glucose - Point of Care 154 mg/dl (70-99)
[2024-11-13] MEDS: LIPITOR 20 MG PO (22:54)
[2024-11-13] MEDS: ZOLOFT 100 MG PO (22:55)
[2024-11-13 23:11] VITALS: BP 153/83
[2024-11-14] MEDS: ANCEF 10 IV ×3 (01:46→18:16)
[2024-11-14] MEDS: ULTRAM 25 MG PO ×3 (01:50→21:36)
[2024-11-14] MEDS: SYNTHROID 50 MCG PO (05:40)
[2024-11-14 07:50] LABS: Hematocrit 33.7 % (37.0-47.0); Hemoglobin 11.2 g/dL (12.0-16.0); Mean Corp Hgb Conc. 33.2 g/dL (33.0-37.0); Mean Corpuscular Hgb 28.1 pg (27.0-31.0); Mean Corpuscular Volume 84.5 fL (81.0-99.0); Mean Platelet Volume 9.9 fL (7.4-10.4); Platelet Count 267 10^3/uL (130-400); Red Blood Cell Count 3.99 10^6/uL (4.20-5.40); White Blood Cell Count 6.8 10^3/uL (4.8-10.8)
[2024-11-14 08:08] VITALS: BP 177/86
[2024-11-14 08:19] LABS: Blood Urea Nitrogen 22 mg/dl (7-17); Calcium 9.7 mg/dl (8.4-10.2); Carbon Dioxide 30 mmol/L (22-30); Chloride 97 mmol/L (98-107); Estimated Creatinine Clearance 42 ml/min; Glucose 161 mg/dl (70-99); Potassium 4.3 mmol/L (3.5-5.1); Sodium 136 mmol/L (135-145); eGFR > 60.00
[2024-11-14] MEDS: KCL 10 MEQ PO (09:07)
[2024-11-14] MEDS: ASPIR LOW (ENTERIC COATED) 81 MG PO (09:07)
[2024-11-14] MEDS: COREG 12.5 MG PO ×2 (09:07→21:34)
[2024-11-14] MEDS: PROTONIX 40 MG PO (09:07)
[2024-11-14 09:15] LABS: Glucose - Point of Care 178 mg/dl (70-99)
[2024-11-14] MEDS: NOVOLOG FLEXPEN-LOW RESISTANCE 1 UNITS SC ×2 (09:22→18:15)
[2024-11-14 10:15] LABS: Erythrocyte Sed Rate 68 mm/hour (0-20)
--- NOTE | 2024-11-14 12:15 | CARDSERVLU ---
Echocardiogram with [facility] completed after protocol screening completed. Allergies verified.
Patent IV site: _R AC____
IV site flushed with 0.9% NaCl pre and post administration.
Diluted bolus method utilized to enhance visualization of ventricular moncada.
Total volume given: __1.5__ mL
Patient tolerated all procedures well without complications.
--- NOTE | 2024-11-14 12:58 | W.PN.ID1 ---
Date of Service
Date of Service: November 14, 2024
Today's Communication
Repeat blood cx's in am
TTE
Assessment / Plan
# MSSA bacteremia
# Acute T8/T9 discitis/osteo with mild to moderate cord impingement.
# Elevated CRP
# MSSA bacteruria - source from bacteremia
- Repeat blood cx's in am
- Per neurosurgery, no surgical intervention at this time.
-TTE pending
-Continue cefazolin 2g IV q8H (d1) x 6 to 8 weeks.
- Pain control
# Conditions RETAIL HELPER
HTN
DM2
CHF
Hypothyroidism
Thyroid nodule
Dyslipidemia
Depression
Stage III colon ca s/p colon resection (2021) and chemo ([facility])
Cholecystectomy
Lithotripsy
Chief Complaint
-: Bacteremia and Other (Discitis)
Subjective / Review of Systems
c/o severe back pain
Vital Signs / Physical Exam
Vital Signs
Vital Signs
Temp Pulse Resp BP Pulse Ox
97.9 F 77 18 177/86 95
11/14/24 08:08 11/14/24 08:08 11/14/24 08:08 11/14/24 08:08 11/14/24 08:08
Physical Exam
Constitutional: Chronically Ill and Cachetic
Cardiovascular: Regular Rate and S1/S2
Pulmonary: Clear
Gastrointestinal: Soft, Non Tender and Non Distended
Extremities: Negative Edema
Neurological: AO x 3
Objective Data
Lab Data
Lab Results
11/14/24 07:18
11/14/24 07:18
ESR 68 mm/hour (0-20) H 11/14/24 07:18
Estimated Creat Clear 42 ml/min 11/14/24 07:18
Lactic Acid Cancelled 11/12/24 18:45
Total Bilirubin 0.9 mg/dl (0.2-1.3) 11/12/24 02:51
AST 93 U/L (14-36) H 11/12/24 02:51
ALT 64 U/L (0-35) H 11/12/24 02:51
Alkaline Phosphatase 244 U/L (38-126) H 11/12/24 02:51
C-Reactive Protein 41.80 mg/L (0.0-10.00) H 11/14/24 07:18
Most recent labs reviewed.
Micro Results:
11/13/24 05:18 Urine Culture - Preliminary
Urine Staphylococcus aureus
11/12/24 14:44 Blood Culture - Preliminary
Blood/Venous Positive culture in progress
Gram Stain - Preliminary
11/12/24 14:44 Blood Culture - Preliminary
Blood/Venous Staphylococcus aureus
Gram Stain - Preliminary
11/12/24 CT a/p: Irregularity/fragmentation superior and anterior aspect of the T9 vertebral body with prominent surrounding soft tissues, new, suspicious for T8/T9 discitis and possible osteomyelitis. Suggest Thoracic spine MRI without and with
contrast for more complete evaluation.
11/12/24 MRI thorax wo and with contrast: There is T8-9 discitis with osteomyelitis in the adjacent T8 and T9 vertebral bodies and associated endplate destruction.
There is epidural extension of infection at this level with mild-moderate cord impingement
There is paraspinal extension at this level more prominent on the right than the left
11/12/24 MRI lumbar wo and with contrast: Multilevel lumbar dextroscoliosis with multilevel lumbar degenerative disc disease as outlined above.
[2024-11-14 13:12] LABS: Glucose - Point of Care 151 mg/dl (70-99)
[2024-11-14] MEDS: NOVOLOG FLEXPEN-LOW RESISTANCE SC (13:40)
[2024-11-14] MEDS: MIRALAX PO (13:57)
--- NOTE | 2024-11-14 14:46 | W.PN.HOSP.TC ---
Today's Communication/Plan
-
Continue IV cefazolin
Repeat cultures tomorrow
Follow-up TTE
PT/OT/analgesia
Start bowel regimen
Assessment / Plan
Assessment / Plan
#Osteomyelitis/discitis of T8/T9 vertebra
#MSSA bacteremia
-Has been hospitalized with recurrent back pain; previous imaging negative
-Upon previous ED visit did have MSSA positive urine culture, suspect these are related as MSSA uncommon urine species
-CT here with concern for osteomyelitis/discitis; MRI T-spine with extensive findings, L-spine unremarkable
-No fevers or leukocytosis though with elevated inflammatory markers; blood cultures x 2 on admission remain negative
-No clinical symptoms of cord impingement; evaluated by neurosurgery who recommends TLSO brace when weightbearing
-Blood cultures positive for Staphylococcus aureus; remains without infectious symptoms, no SIRS criteria
Plan
-Continue with IV cefazolin 2 g every 8 hours, will likely need extended course
-Continue with as needed analgesia, start bowel regimen
-Follow-up TTE to assess for vegetations
-Plan to repeat blood cultures on 11/15
-Trend CBC and temperature
#Transaminitis
-Has had mildly elevated AST, ALT, ALP since 2022; <2x ULN
-Suspect ALP is a bone etiology; cannot rule out underlying fatty liver
-Will trend LFTs here, consider RUQ US if worsening
-Avoid unnecessary hepatotoxic agents (ok to c/w statin)
#Hypertension
-No known history of hypertensive systemic disease
-Home medications include carvedilol 12.5 twice daily
-Blood pressure here slightly elevated secondary to pain
-Will continue to monitor, uptitrate regimen as needed
-Analgesia as above
#Hypothyroidism
-Unclear etiology, home medications include levothyroxine
-No signs or symptoms of thyroid dysfunction
#GERD
-Home regimen includes daily PPI
-No known history of Toure's esophagus or erosive disease
-No signs of breakthrough symptoms
#Hyperlipidemia
-Home regimen includes moderate intensity statin
-No known history of ASCVD
#T2DM
-Diet controlled; A1c 6.8%; no known history of microvascular disease
-Started on ISS with Accu-Cheks and carb controlled diet here
-BG goal 140-180
DVT prophylaxis: Lovenox
Diet: Diabetic
CODE STATUS: Full code
Anticipated Discharge: > 48 hours
Subjective/Interval History
-
Date of Service: November 14, 2024
Seen and examined at the bedside. No acute events reported overnight. AFVSS this morning
Blood cultures yesterday afternoon positive for Staphylococcus aureus. Started on IV cefazolin
Denies acute complaints today. Had pain at time of my eval however was due for a dose of Dilaudid
Objective Data
-
Labs:
Laboratory Results
11/14/24
07:18
WBC 6.8
Hgb 11.2 L
Hct 33.7 L
Plt Count 267
Sodium 136
Potassium 4.3
Chloride 97 L
Carbon Dioxide 30
BUN 22 H
Creatinine 0.9
Glucose 161 H
Calcium 9.7
Vital Signs:
Vital Signs
Temp Pulse Resp BP Pulse Ox
97.9 F 77 18 177/86 95
11/14/24 08:08 11/14/24 08:08 11/14/24 08:08 11/14/24 08:08 11/14/24 08:08
I&O
11/13/24 11/14/24 11/15/24
06:59 06:59 06:59
Intake Total 840 / 840
Balance 840 / 840
Review of Systems
-
History Source: Patient
All other systems: Reviewed and negative
Physical Exam
-
General: Well Developed, No Apparent Distress, Comfortable, Appears Chronically Ill and Other (Thin and frail appearing)
HEENT: Normocephalic, Atraumatic, Moist Mucous Membranes and Anicteric
Respiratory: Clear to Auscultation and Non Labored Respirations
Cardiac: Regular Rhythm and S1/S2; Negative Murmur, Rub or Gallop
GI: Soft, Nontender, Nondistended and Normal Bowel Sounds
Musculoskeletal: No Clubbing, No Cyanosis, No Edema and Other (Mild tenderness over T8/T9 to palpation)
Skin: Warm and Dry; Negative Rash
Neuro: AO x 3 and Nonfocal/Grossly Intact
Psych: Calm
Data Reviewed
-
Labs: Labs Reviewed by me, Discussed with Physician (Infectious disease) and Discussed with Patient
[2024-11-14] MEDS: DILAUDID 0.5 MG IV (15:34)
[2024-11-14 16:00] VITALS: BP 161/76
[2024-11-14 18:07] LABS: Glucose - Point of Care 154 mg/dl (70-99)
[2024-11-14] MEDS: LOVENOX 40 MG SC (18:16)
[2024-11-14] MEDS: LIPITOR 20 MG PO (21:33)
[2024-11-14] MEDS: ZOLOFT 100 MG PO (21:33)
[2024-11-14 21:49] LABS: Glucose - Point of Care 166 mg/dl (70-99)
[2024-11-14] MEDS: SENNA SYRUP 8.8 MG PO (22:02)
[2024-11-14 23:31] VITALS: BP 173/89
[2024-11-15] MEDS: ANCEF 10 IV ×3 (02:06→17:25)
[2024-11-15] MEDS: SYNTHROID 50 MCG PO (05:39)
[2024-11-15 07:30] LABS: Glucose - Point of Care 150 mg/dl (70-99)
[2024-11-15 07:36] LABS: Hematocrit 34.9 % (37.0-47.0); Hemoglobin 11.9 g/dL (12.0-16.0); Mean Corp Hgb Conc. 34.1 g/dL (33.0-37.0); Mean Corpuscular Hgb 28.3 pg (27.0-31.0); Mean Corpuscular Volume 82.9 fL (81.0-99.0); Mean Platelet Volume 9.6 fL (7.4-10.4); Platelet Count 310 10^3/uL (130-400); Red Blood Cell Count 4.21 10^6/uL (4.20-5.40); Red Cell Dist. Width 14.1 % (11.5-14.5); White Blood Cell Count 8.1 10^3/uL (4.8-10.8)
[2024-11-15 07:54] VITALS: BP 170/83
[2024-11-15] MEDS: NOVOLOG FLEXPEN-LOW RESISTANCE SC (08:23)
[2024-11-15] MEDS: COREG 12.5 MG PO ×2 (08:54→20:35)
[2024-11-15] MEDS: KCL 10 MEQ PO (08:54)
[2024-11-15] MEDS: ASPIR LOW (ENTERIC COATED) 81 MG PO (08:54)
[2024-11-15] MEDS: PROTONIX 40 MG PO (08:54)
--- NOTE | 2024-11-15 08:54 | W.PN.ID1 ---
Date of Service
Date of Service: November 15, 2024
Today's Communication
Continue cefazolin.
See below.
Assessment / Plan
# MSSA bacteremia
# Acute T8/T9 discitis/osteo with mild to moderate cord impingement.
# Elevated CRP
# MSSA bacteruria x3 - source from bacteremia
- Follow repeat blood cx's
- Per neurosurgery, no surgical intervention at this time.
-TTE neg
-Continue cefazolin 2g IV q8H (d2) x 8 weeks (anticipate till 01/14/24)
Trend CRP weekly. Weekly CBC, CMP
- Infusion sheet submitted to supervisor case loading and also placed in paper chart.
-When repeat blood cx's negative x 48hrs, place picc.
-Anticipate ready for dc to SNF Tuesday if bcx's cleared and back pain controlled.
# Conditions POSTER
HTN
DM2
CHF
Hypothyroidism
Thyroid nodule
Dyslipidemia
Depression
Stage III colon ca s/p colon resection (2021) and chemo ([facility])
Cholecystectomy
Lithotripsy
Chief Complaint
-: Bacteremia and Other (Discitis)
Subjective / Review of Systems
Back pain stable
Vital Signs / Physical Exam
Vital Signs
Vital Signs
Temp Pulse Resp BP Pulse Ox
97.7 F 75 18 170/83 95
11/15/24 07:54 11/15/24 07:54 11/15/24 07:54 11/15/24 07:54 11/15/24 07:54
Physical Exam
Constitutional: Comfortable and Chronically Ill
Cardiovascular: Regular Rate and S1/S2
Pulmonary: Clear
Gastrointestinal: Soft, Tender (minimal upper abd), Non Distended and Normal Bowel Sounds
Genito-Urinary: Negative CVA Tenderness
Extremities: Negative Edema or Splinter Hemorrhage
Neurological: AO x 3
Objective Data
Lab Data
Lab Results
11/15/24 07:15
11/14/24 07:18
ESR 68 mm/hour (0-20) H 11/14/24 07:18
Estimated Creat Clear 42 ml/min 11/14/24 07:18
Lactic Acid Cancelled 11/12/24 18:45
Total Bilirubin 0.9 mg/dl (0.2-1.3) 11/12/24 02:51
AST 93 U/L (14-36) H 11/12/24 02:51
ALT 64 U/L (0-35) H 11/12/24 02:51
Alkaline Phosphatase 244 U/L (38-126) H 11/12/24 02:51
C-Reactive Protein 41.80 mg/L (0.0-10.00) H 11/14/24 07:18
Most recent labs reviewed.
Micro Results:
11/12/24 14:44 Blood Culture - Preliminary
Blood/Venous Staphylococcus aureus
Gram Stain - Preliminary
11/15/24 07:15 Blood Culture - Pending
Blood/Venous
11/15/24 07:45 Blood Culture - Pending
Blood/Venous
11/13/24 05:18 Urine Culture - Preliminary
Urine Staphylococcus aureus
11/12/24 14:44 Blood Culture - Preliminary
Blood/Venous Positive culture in progress
Gram Stain - Preliminary
11/12/24 CT a/p: Irregularity/fragmentation superior and anterior aspect of the T9 vertebral body with prominent surrounding soft tissues, new, suspicious for T8/T9 discitis and possible osteomyelitis. Suggest Thoracic spine MRI without and with
contrast for more complete evaluation.
11/12/24 MRI thorax wo and with contrast: There is T8-9 discitis with osteomyelitis in the adjacent T8 and T9 vertebral bodies and associated endplate destruction.
There is epidural extension of infection at this level with mild-moderate cord impingement
There is paraspinal extension at this level more prominent on the right than the left
11/12/24 MRI lumbar wo and with contrast: Multilevel lumbar dextroscoliosis with multilevel lumbar degenerative disc disease as outlined above.
Care Review
Plan reviewed with: Other (Case management Román Cuellar)
[2024-11-15] MEDS: MIRALAX 17 GRAMS PO (08:55)
--- NOTE | 2024-11-15 10:22 | CM ---
CM reviewed chart, per ID, patient will require IV antibiotics (end date 01/13/25) at SNF. Anticipated discharge >48 hours. Patient seen bedside, discussed SNF upon discharge, per previous CM note, first choice [facility]. Patient appears confused, unsure
regarding SNFs. Message to Malu at [facility] regarding bed availability. CM will continue to follow for all discharge planning needs.
Plan: SNF when stable, first choice [facility], will require IV antibiotics.
[2024-11-15 11:43] LABS: Glucose - Point of Care 215 mg/dl (70-99)
[2024-11-15] MEDS: TYLENOL 650 MG PO (13:17)
[2024-11-15] MEDS: NOVOLOG FLEXPEN-LOW RESISTANCE 2 UNITS SC (13:23)
[2024-11-15 15:24] VITALS: BP 132/78
[2024-11-15] MEDS: ULTRAM 25 MG PO (15:26)
--- NOTE | 2024-11-15 16:29 | W.PN.HOSP.TC ---
Today's Communication/Plan
-
Continue IV cefazolin
Repeat blood cultures, PICC line in 48 hours if negative
Tentative discharge to SNF on Tuesday
Assessment / Plan
Assessment / Plan
#Osteomyelitis/discitis of T8/T9 vertebra
#MSSA bacteremia
-Has been hospitalized with recurrent back pain; previous imaging negative
-Upon previous ED visit did have MSSA positive urine culture, suspect these are related as MSSA uncommon urine species
-CT here with concern for osteomyelitis/discitis; MRI T-spine with extensive findings, L-spine unremarkable
-No fevers or leukocytosis though with elevated inflammatory markers; blood cultures x 2 on admission remain negative
-No clinical symptoms of cord impingement; evaluated by neurosurgery who recommends TLSO brace when weightbearing
-Blood cultures positive for Staphylococcus aureus; remains without infectious symptoms, no SIRS criteria
Plan
-Continue with IV cefazolin 2 g every 8 hours for 6 to 8-week course
-Continue with as needed analgesia and start bowel regimen
-Repeat cultures today, PICC line in 48 hours if remain negative
-Trend inflammatory markers, CBC, and temperature
#Transaminitis
-Has had mildly elevated AST, ALT, ALP since 2022; <2x ULN
-Suspect ALP is a bone etiology; cannot rule out underlying fatty liver
-Will trend LFTs here, consider RUQ US if worsening
-Avoid unnecessary hepatotoxic agents (ok to c/w statin)
#Hypertension
-No known history of hypertensive systemic disease
-Home medications include carvedilol 12.5 twice daily
-Blood pressure here slightly elevated secondary to pain
-Will continue to monitor, uptitrate regimen as needed
-Analgesia as above
#Hypothyroidism
-Unclear etiology, home medications include levothyroxine
-No signs or symptoms of thyroid dysfunction
#GERD
-Home regimen includes daily PPI
-No known history of Toure's esophagus or erosive disease
-No signs of breakthrough symptoms
#Hyperlipidemia
-Home regimen includes moderate intensity statin
-No known history of ASCVD
#T2DM
-Diet controlled; A1c 6.8%; no known history of microvascular disease
-Started on ISS with Accu-Cheks and carb controlled diet here
-BG goal 140-180
DVT prophylaxis: Lovenox
Diet: Diabetic
CODE STATUS: Full code
Anticipated Discharge: > 48 hours
Subjective/Interval History
-
Date of Service: November 15, 2024
Seen and examined at the bedside. No acute events reported overnight. AFVSS this morning
Continues to have some pain that is worse in the right upper abdomen/ribs. Otherwise back pain is improved. Denies fevers or chills
Denies any acute complaints
Objective Data
-
Labs:
Laboratory Results
11/15/24
07:15
WBC 8.1
Hgb 11.9 L
Hct 34.9 L
Plt Count 310
Vital Signs:
Vital Signs
Temp Pulse Resp BP Pulse Ox
97.8 F 76 18 132/78 95
11/15/24 15:24 11/15/24 15:24 11/15/24 15:24 11/15/24 15:24 11/15/24 15:24
I&O
11/14/24 11/15/24 11/16/24
06:59 06:59 06:59
Intake Total 840 / 840 120 / 120 420 / 420
Output Total 450 / 450
Balance 840 / 840 -330 / -330 420 / 420
Review of Systems
-
History Source: Patient
All other systems: Reviewed and negative
Physical Exam
-
General: Well Developed, No Apparent Distress, Comfortable, Appears Chronically Ill and Other (Thin and frail)
HEENT: Normocephalic, Atraumatic, Moist Mucous Membranes and Anicteric
Respiratory: Clear to Auscultation and Non Labored Respirations
Cardiac: Regular Rhythm and S1/S2; Negative Murmur, Rub or Gallop
GI: Soft, Nontender, Nondistended and Normal Bowel Sounds
Musculoskeletal: No Clubbing, No Cyanosis, No Edema and Other (Tenderness to lower right sided ribs)
Skin: Warm, Dry and Normal Turgor; Negative Rash or Jaundice
Neuro: AO x 3 and Nonfocal/Grossly Intact
Psych: Calm
[2024-11-15 17:11] LABS: Glucose - Point of Care 192 mg/dl (70-99)
[2024-11-15] MEDS: LOVENOX 40 MG SC (17:25)
[2024-11-15] MEDS: LIDOCAINE 4% PATCH 1 PATCH TOPICAL (17:26)
--- NOTE | 2024-11-15 17:39 | PTCARENOTE ---
Pt OOB to chair using back brace/walker/assist x 1. Pt tolerated being in chair for about an hour then asked to get back into bed d/t pain. Had soft/brown BM on commode.
[2024-11-15] MEDS: NOVOLOG FLEXPEN-LOW RESISTANCE 1 UNITS SC (18:19)
[2024-11-15] MEDS: LIPITOR 20 MG PO (20:35)
[2024-11-15] MEDS: SENNA SYRUP 8.8 MG PO (20:35)
[2024-11-15] MEDS: ZOLOFT 100 MG PO (20:35)
[2024-11-15 22:12] LABS: Glucose - Point of Care 162 mg/dl (70-99)
[2024-11-15 23:06] VITALS: BP 147/76
[2024-11-16] MEDS: ANCEF 10 IV ×3 (02:37→17:24)
[2024-11-16] MEDS: SYNTHROID 50 MCG PO (05:59)
[2024-11-16] MEDS: ULTRAM 25 MG PO ×2 (06:02→13:29)
[2024-11-16 07:20] LABS: Glucose - Point of Care 152 mg/dl (70-99)
[2024-11-16 07:36] VITALS: BP 156/83
[2024-11-16 08:28] LABS: % Basophils 0.1 % (0-2); % Eosinophils 0.7 % (0-6); % Immature Granulocytes 0.3 % (0-0.5); % Lymphocytes 27.5 % (20.5-51.1); % Monocytes 6.5 % (1.7-9.3); % Neutrophils 64.9 % (42.2-75.2); Absolute Eosinophils 0.1 10^3/uL (0-0.7); Absolute Monocytes 0.5 10^3/uL (0.1-0.6); Absolute Neutrophils 4.6 10^3/uL (1.4-6.5); Hemoglobin 11.3 g/dL (12.0-16.0); Mean Corp Hgb Conc. 33.2 g/dL (33.0-37.0); Mean Corpuscular Volume 84.4 fL (81.0-99.0); Mean Platelet Volume 10.3 fL (7.4-10.4); Nucleated Red Blood Cells % 0 %; Platelet Count 281 10^3/uL (130-400); Red Blood Cell Count 4.03 10^6/uL (4.20-5.40); Red Cell Dist. Width 14.2 % (11.5-14.5); White Blood Cell Count 7.1 10^3/uL (4.8-10.8)
[2024-11-16] MEDS: NOVOLOG FLEXPEN-LOW RESISTANCE 1 UNITS SC ×3 (08:41→16:33)
[2024-11-16] MEDS: MIRALAX 17 GRAMS PO (08:42)
[2024-11-16] MEDS: LIDOCAINE 4% PATCH 1 PATCH TOPICAL (08:42)
[2024-11-16] MEDS: PROTONIX 40 MG PO (08:42)
[2024-11-16] MEDS: KCL 10 MEQ PO (08:42)
[2024-11-16] MEDS: ASPIR LOW (ENTERIC COATED) 81 MG PO (08:42)
[2024-11-16] MEDS: COREG 12.5 MG PO ×2 (08:43→21:33)
[2024-11-16 09:00] LABS: ALT (SGPT) 12 U/L (0-35); AST (SGOT) 46 U/L (14-36); Albumin 3.3 g/dl (3.5-5.0); Alkaline Phosphatase 236 U/L (38-126); Blood Urea Nitrogen 17 mg/dl (7-17); Calcium 9.5 mg/dl (8.4-10.2); Carbon Dioxide 27 mmol/L (22-30); Chloride 97 mmol/L (98-107); Estimated Creatinine Clearance 47 ml/min; Glucose 155 mg/dl (70-99); Potassium 4.1 mmol/L (3.5-5.1); Sodium 135 mmol/L (135-145); Total Bilirubin 0.7 mg/dl (0.2-1.3); Total Protein 7.2 g/dl (6.3-8.2); eGFR > 60.00
--- NOTE | 2024-11-16 11:09 | W.PN.ID1 ---
Date of Service
Date of Service: November 16, 2024
Today's Communication
- When repeat blood cx's negative x [address] picc.
Assessment / Plan
# MSSA bacteremia
# Acute T8/T9 discitis/osteo with mild to moderate cord impingement.
# Elevated CRP
# MSSA bacteruria x3 - source from bacteremia
- Follow repeat blood cx's
- Per neurosurgery, no surgical intervention at this time.
- TTE neg
- ontinue cefazolin 2g IV q8H (d3) x 8 weeks (anticipate till 01/14/24)
Trend CRP weekly. Weekly CBC, CMP
- Infusion sheet submitted to family preservation caseworker and also placed in paper chart.
- When repeat blood cx's negative x [address] picc.
- Anticipate ready for dc to SNF late Tuesday/Tuesday if bcx's cleared and back pain controlled
- follow up with Dr Toribio
# Conditions [employer]IST
HTN
DM2
CHF
Hypothyroidism
Thyroid nodule
Dyslipidemia
Depression
Stage III colon ca s/p colon resection (2021) and chemo ([facility])
Cholecystectomy
Lithotripsy
Chief Complaint
-: Bacteremia and Other (Discitis)
Subjective / Review of Systems
afebrile
bp stable
tolerating current antibiotics
reports back pain not yet controlled
Vital Signs / Physical Exam
Vital Signs
Vital Signs
Temp Pulse Resp BP Pulse Ox
97.9 F 72 18 156/83 97
11/16/24 07:36 11/16/24 08:43 11/16/24 07:36 11/16/24 08:43 11/16/24 07:36
Physical Exam
Constitutional: No Acute Distress and Chronically Ill
Cardiovascular: Regular Rate and S1/S2; Negative Murmur or Rub
Pulmonary: Clear and Symmetric; Negative Wheezes or Rales
Gastrointestinal: Soft, Non Tender, Non Distended and Normal Bowel Sounds
Skin: Warm and Dry; Negative Rash or Jaundice
Objective Data
Lab Data
Lab Results
11/16/24 07:45
11/16/24 07:45
ESR 68 mm/hour (0-20) H 11/14/24 07:18
Estimated Creat Clear 47 ml/min 11/16/24 07:45
Lactic Acid Cancelled 11/12/24 18:45
Total Bilirubin 0.7 mg/dl (0.2-1.3) 11/16/24 07:45
AST 46 U/L (14-36) H 11/16/24 07:45
ALT 12 U/L (0-35) 11/16/24 07:45
Alkaline Phosphatase 236 U/L (38-126) H 11/16/24 07:45
C-Reactive Protein 41.80 mg/L (0.0-10.00) H 11/14/24 07:18
Most recent labs reviewed.
Micro Results:
11/16/24 07:45 Blood Culture - Pending
Blood/Venous
11/15/24 07:45 Blood Culture - Preliminary
Blood/Venous No Growth in 24 hours- Final report to follow
11/15/24 07:15 Blood Culture - Preliminary
Blood/Venous No Growth in 24 hours- Final report to follow
11/13/24 05:18 Urine Culture - Final
Urine S aureus-Methicillin Sensitive
11/12/24 14:44 Blood Culture - Preliminary
Blood/Venous S aureus-Methicillin Sensitive
Gram Stain - Preliminary
11/12/24 14:44 Blood Culture - Preliminary
Blood/Venous S aureus-Methicillin Sensitive
Gram Stain - Preliminary
11/12/24 CT a/p: Irregularity/fragmentation superior and anterior aspect of the T9 vertebral body with prominent surrounding soft tissues, new, suspicious for T8/T9 discitis and possible osteomyelitis. Suggest Thoracic spine MRI without and with
contrast for more complete evaluation.
11/12/24 MRI thorax wo and with contrast: There is T8-9 discitis with osteomyelitis in the adjacent T8 and T9 vertebral bodies and associated endplate destruction.
There is epidural extension of infection at this level with mild-moderate cord impingement
There is paraspinal extension at this level more prominent on the right than the left
11/12/24 MRI lumbar wo and with contrast: Multilevel lumbar dextroscoliosis with multilevel lumbar degenerative disc disease as outlined above.
[2024-11-16 11:38] LABS: Glucose - Point of Care 191 mg/dl (70-99)
[2024-11-16] MEDS: SENOKOT-S 1 TABLET PO (11:50)
[2024-11-16] MEDS: DILAUDID 1 MG IV ×2 (11:50→21:31)
--- NOTE | 2024-11-16 12:11 | CM ---
CM reviewed chart, patient potentially stable for discharge Tuesday to SNF. Updated referrals sent to [facility], and [facility]. As of now, no beds at [facility]. VM left for patients to discuss other SNF options. Patient will require
IV antibiotics upon discharge. CM will continue to follow for all discharge planning needs.
Plan; SNF once facility found, will require IV antibiotics upon discharge- awaiting return call from spouse.
--- NOTE | 2024-11-16 13:05 | W.PN.HOSP.TC ---
Today's Communication/Plan
-
Continue IV cefazolin
Follow repeat cultures and possible PICC line Tuesday
Increase Dilaudid for severe pain
Assessment / Plan
Assessment / Plan
#Osteomyelitis/discitis of T8/T9 vertebra
#MSSA bacteremia
-Has been hospitalized with recurrent back pain; previous imaging negative
-Upon previous ED visit did have MSSA positive urine culture, suspect these are related as MSSA uncommon urine species
-CT here with concern for osteomyelitis/discitis; MRI T-spine with extensive findings, L-spine unremarkable
-No fevers or leukocytosis though with elevated inflammatory markers; blood cultures x 2 on admission remain negative
-No clinical symptoms of cord impingement; evaluated by neurosurgery who recommends TLSO brace when weightbearing
-Blood cultures positive for Staphylococcus aureus; remains without infectious symptoms, no SIRS criteria
Plan
-Continue with IV cefazolin 2 g every 8 hours for 6 to 8-week course
-Continue with as needed analgesia and start bowel regimen
-Repeat cultures today, PICC line in 48-72 hours if remain negative
-Trend inflammatory markers, CBC, and temperature
#Transaminitis
-Has had mildly elevated AST, ALT, ALP since 2022; <2x ULN
-Suspect ALP is a bone etiology; cannot rule out underlying fatty liver
-Will trend LFTs here, consider RUQ US if worsening
-Avoid unnecessary hepatotoxic agents (ok to c/w statin)
#Hypertension
-No known history of hypertensive systemic disease
-Home medications include carvedilol 12.5 twice daily
-Blood pressure here slightly elevated secondary to pain
-Will continue to monitor, uptitrate regimen as needed
-Analgesia as above
#Hypothyroidism
-Unclear etiology, home medications include levothyroxine
-No signs or symptoms of thyroid dysfunction
#GERD
-Home regimen includes daily PPI
-No known history of Toure's esophagus or erosive disease
-No signs of breakthrough symptoms
#Hyperlipidemia
-Home regimen includes moderate intensity statin
-No known history of ASCVD
#T2DM
-Diet controlled; A1c 6.8%; no known history of microvascular disease
-Started on ISS with Accu-Cheks and carb controlled diet here
-BG goal 140-180
DVT prophylaxis: Lovenox
Diet: Diabetic
CODE STATUS: Full code
Anticipated Discharge: > 48 hours
Subjective/Interval History
-
Date of Service: November 16, 2024
Seen and examined at bedside. No acute events reported overnight. AFVSS this morning
Repeat blood cultures remain negative. Planning for PICC on Tuesday if remain negative
States that her pain was a little bit worse this morning though otherwise no new complaints
Objective Data
-
Labs:
Laboratory Results
11/16/24
07:45
WBC 7.1
Hgb 11.3 L
Hct 34.0 L
Plt Count 281
Sodium 135
Potassium 4.1
Chloride 97 L
Carbon Dioxide 27
BUN 17
Creatinine 0.8
Glucose 155 H
Calcium 9.5
Total Bilirubin 0.7
AST 46 H
ALT 12
Alkaline Phosphatase 236 H
Vital Signs:
Vital Signs
Temp Pulse Resp BP Pulse Ox
97.9 F 72 18 156/83 97
11/16/24 07:36 11/16/24 08:43 11/16/24 07:36 11/16/24 08:43 11/16/24 07:36
I&O
11/15/24 11/16/24 11/17/24
06:59 06:59 06:59
Intake Total 120 / 120 960 / 960
Output Total 450 / 450 125 / 125
Balance -330 / -330 835 / 835
Review of Systems
-
History Source: Patient
All other systems: Reviewed and negative
Physical Exam
-
General: Well Developed, No Apparent Distress, Comfortable and Cachectic
HEENT: Normocephalic, Atraumatic, Moist Mucous Membranes and Anicteric
Respiratory: Clear to Auscultation and Non Labored Respirations
Cardiac: Regular Rhythm and S1/S2; Negative Murmur, Rub or Gallop
GI: Soft, Nontender, Nondistended and Normal Bowel Sounds
Musculoskeletal: No Clubbing, No Cyanosis and No Edema
Skin: Warm, Dry and Normal Turgor; Negative Rash
Neuro: AO x 3 and Nonfocal/Grossly Intact
Psych: Calm
--- NOTE | 2024-11-16 14:33 | PN.CDI ---
CDI
- -
CDI:
Physician Documentation Request
Admit Date: 11/12/24 15:34
Dear Doctor Johnny,
Please review the following and provide your response in the progress notes.
Clinical Indicators:
Selected Entries
11/14/24
15:57
Pressure injury stage [Present on admission Generalized Sacrum] Stage 1
Physician documentation of the type and location of wounds is required for compliant documentation. Based on the above clinical findings and your assessment, please provide the following in your progress note:
Location of the ulcer/wound, including laterality.
Type (etiology) of ulcer/wound:
- Diabetic ulcer
- Arterial (ischemic) ulcer
- Pressure (decubitus) ulcer
- Other
If a pressure ulcer, please also include the stage* of the ulcer:
- Stage 1 - Skin intact, non-blanchable redness
- Stage 2 - Partial thickness loss of dermis, includes intact or open blister
- Stage 3 - Full thickness tissue not including bone, tendon or muscle
- Stage 4 - Full thickness tissue loss, including exposed bone, tendon or muscle
- Unstageable - Full thickness loss in which the base of the ulcer is covered by slough (yellow, han, santizo, green or brown) and/or eschar (han, brown or black) in the wound bed.
Use of terms such as suspected, likely, concern for, or probable (associated with a specific diagnosis that is being evaluated, monitored, or treated as if it exists) are acceptable and can be coded in the inpatient setting, when documented at the
time of discharge.
Thank you,
Adriana Chairez RN BSN CCDS
CDI Specialist
please contact via tiger text
Please use your independent medical judgment in providing your response.
*Source: National Pressure Ulcer Advisory Panel (NPUAP)
[2024-11-16 15:17] VITALS: BP 128/74
[2024-11-16 16:29] LABS: Glucose - Point of Care 182 mg/dl (70-99)
[2024-11-16] MEDS: LOVENOX 40 MG SC (17:24)
[2024-11-16] MEDS: NSS 1000 IV (17:24)
[2024-11-16] MEDS: DILAUDID 0.5 MG IV (17:28)
[2024-11-16] MEDS: ZOLOFT 100 MG PO (21:34)
[2024-11-16] MEDS: SENNA SYRUP 8.8 MG PO (21:34)
[2024-11-16] MEDS: LIPITOR 20 MG PO (21:35)
[2024-11-16 22:25] LABS: Glucose - Point of Care 253 mg/dl (70-99)
[2024-11-16 23:22] VITALS: BP 125/71
[2024-11-17] MEDS: ANCEF 10 IV ×3 (01:30→17:41)
[2024-11-17 07:00] VITALS: BP 131/73
[2024-11-17 08:08] LABS: Glucose - Point of Care 178 mg/dl (70-99)
[2024-11-17] MEDS: NSS 1000 IV (08:42)
[2024-11-17] MEDS: PROTONIX 40 MG PO (10:14)
[2024-11-17] MEDS: COREG 12.5 MG PO ×2 (10:14→20:47)
[2024-11-17] MEDS: ASPIR LOW (ENTERIC COATED) 81 MG PO (10:14)
[2024-11-17] MEDS: KCL 10 MEQ PO (10:15)
[2024-11-17] MEDS: SYNTHROID 50 MCG PO (10:15)
[2024-11-17] MEDS: NOVOLOG FLEXPEN-LOW RESISTANCE 1 UNITS SC ×2 (10:15→13:20)
[2024-11-17] MEDS: LIDOCAINE 4% PATCH 1 PATCH TOPICAL (10:16)
[2024-11-17] MEDS: MIRALAX 17 GRAMS PO (10:37)
[2024-11-17] MEDS: DILAUDID 1 MG IV ×3 (10:37→20:49)
[2024-11-17] MEDS: FLEXERIL 5 MG PO (13:08)
[2024-11-17 13:21] LABS: Glucose - Point of Care 172 mg/dl (70-99)
--- NOTE | 2024-11-17 14:45 | W.PN.HOSP.TC ---
Addendum entered and electronically signed by Dileep Turner DO 11/17/24 17:04:
CDI: Stage I pressure injury
Original Note:
Today's Communication/Plan
-
PICC line wound cultures negative for 72 hours
Continue IV cefazolin
Start Flexeril continue IV Dilaudid
Transition to oral Dilaudid tomorrow possibly
Assessment / Plan
Assessment / Plan
#Osteomyelitis/discitis of T8/T9 vertebra
#MSSA bacteremia
-Has been hospitalized with recurrent back pain; previous imaging negative
-Upon previous ED visit did have MSSA positive urine culture, suspect these are related as MSSA uncommon urine species
-CT here with concern for osteomyelitis/discitis; MRI T-spine with extensive findings, L-spine unremarkable
-No fevers or leukocytosis though with elevated inflammatory markers; blood cultures x 2 on admission remain negative
-No clinical symptoms of cord impingement; evaluated by neurosurgery who recommends TLSO brace when weightbearing
-Blood cultures positive for Staphylococcus aureus; remains without infectious symptoms, no SIRS criteria
Plan
-Continue with IV cefazolin 2 g every 8 hours for 6 to 8-week course
-Continue with as needed analgesia and start bowel regimen
-Start Flexeril as needed, provide 1 more dose of IV Dilaudid
-Repeat cultures today, PICC line tomorrow if cultures negative after 72-hour
-Trend inflammatory markers, CBC, and temperature
#Transaminitis
-Has had mildly elevated AST, ALT, ALP since 2022; <2x ULN
-Suspect ALP is a bone etiology; cannot rule out underlying fatty liver
-Will trend LFTs here, consider RUQ US if worsening
-Avoid unnecessary hepatotoxic agents (ok to c/w statin)
#Hypertension
-No known history of hypertensive systemic disease
-Home medications include carvedilol 12.5 twice daily
-Blood pressure here slightly elevated secondary to pain
-Will continue to monitor, uptitrate regimen as needed
-Analgesia as above
#Hypothyroidism
-Unclear etiology, home medications include levothyroxine
-No signs or symptoms of thyroid dysfunction
#GERD
-Home regimen includes daily PPI
-No known history of Toure's esophagus or erosive disease
-No signs of breakthrough symptoms
#Hyperlipidemia
-Home regimen includes moderate intensity statin
-No known history of ASCVD
#T2DM
-Diet controlled; A1c 6.8%; no known history of microvascular disease
-Started on ISS with Accu-Cheks and carb controlled diet here
-BG goal 140-180
DVT prophylaxis: Lovenox
Diet: Diabetic
CODE STATUS: Full code
Anticipated Discharge: 24 - 48 hours
Subjective/Interval History
-
Date of Service: November 17, 2024
Seen and examined at the bedside. No acute events reported overnight. AFVSS this morning
Was complaining of significant pain after receiving 1 mg IV Dilaudid. 30 minutes later still had significant pain, ordered Flexeril and another dose of Dilaudid
Denies any new complaints
Objective Data
-
Vital Signs:
Vital Signs
Temp Pulse Resp BP Pulse Ox
98.1 F 98 16 131/73 94
11/17/24 07:00 11/17/24 07:00 11/17/24 07:00 11/17/24 07:00 11/17/24 07:00
I&O
11/16/24 11/17/24 11/18/24
06:59 06:59 06:59
Intake Total 960 / 960 614 / 614
Output Total 125 / 125 200 / 200 400 / 400
Balance 835 / 835 414 / 414 -400 / -400
Review of Systems
-
History Source: Patient
All other systems: Reviewed and negative
Physical Exam
-
General: Well Developed, No Apparent Distress, Comfortable, Appears Chronically Ill and Cachectic
HEENT: Normocephalic, Atraumatic, Moist Mucous Membranes and Anicteric
Respiratory: Clear to Auscultation and Non Labored Respirations
Cardiac: Regular Rhythm and S1/S2; Negative Murmur, Rub or Gallop
GI: Soft, Nontender, Nondistended and Normal Bowel Sounds
Musculoskeletal: No Clubbing, No Cyanosis, No Edema and Other (Mild tenderness to T8/T9 vertebrae)
Skin: Warm and Dry; Negative Rash
Neuro: AO x 3 and Nonfocal/Grossly Intact; Negative Sedated
Psych: Calm
[2024-11-17 17:09] LABS: Glucose - Point of Care 311 mg/dl (70-99)
[2024-11-17] MEDS: LOVENOX 40 MG SC (17:41)
[2024-11-17] MEDS: NOVOLOG FLEXPEN-LOW RESISTANCE 4 UNITS SC (17:42)
[2024-11-17] MEDS: LIPITOR 20 MG PO (20:51)
[2024-11-17] MEDS: ZOLOFT 100 MG PO (21:29)
[2024-11-17 21:47] LABS: Glucose - Point of Care 258 mg/dl (70-99)
[2024-11-17 23:00] VITALS: BP 94/81
[2024-11-18] MEDS: ANCEF 10 IV ×3 (01:41→17:52)
[2024-11-18] MEDS: NSS 1000 IV (01:41)
[2024-11-18 04:00] VITALS: BP 126/65
[2024-11-18 07:05] LABS: % Basophils 0.4 % (0-2); % Eosinophils 1.5 % (0-6); % Immature Granulocytes 0.8 % (0-0.5); % Lymphocytes 28.1 % (20.5-51.1); % Monocytes 7.6 % (1.7-9.3); % Neutrophils 61.6 % (42.2-75.2); Absolute Eosinophils 0.1 10^3/uL (0-0.7); Absolute Lymphocytes 1.5 10^3/uL (1.2-3.4); Absolute Monocytes 0.4 10^3/uL (0.1-0.6); Absolute Neutrophils 3.2 10^3/uL (1.4-6.5); Hematocrit 30.6 % (37.0-47.0); Hemoglobin 10.2 g/dL (12.0-16.0); Mean Corp Hgb Conc. 33.3 g/dL (33.0-37.0); Mean Corpuscular Hgb 28.4 pg (27.0-31.0); Mean Corpuscular Volume 85.2 fL (81.0-99.0); Mean Platelet Volume 10.7 fL (7.4-10.4); Nucleated Red Blood Cells % 0 %; Platelet Count 213 10^3/uL (130-400); Red Blood Cell Count 3.59 10^6/uL (4.20-5.40); Red Cell Dist. Width 14.4 % (11.5-14.5); White Blood Cell Count 5.2 10^3/uL (4.8-10.8)
[2024-11-18 07:06] LABS: Blood Urea Nitrogen 12 mg/dl (7-17); Carbon Dioxide 27 mmol/L (22-30); Chloride 103 mmol/L (98-107); Estimated Creatinine Clearance 54 ml/min; Glucose 161 mg/dl (70-99); Potassium 3.9 mmol/L (3.5-5.1); Sodium 136 mmol/L (135-145); eGFR > 60.00
[2024-11-18 07:33] VITALS: BP 156/80
[2024-11-18 07:49] LABS: Glucose - Point of Care 163 mg/dl (70-99)
[2024-11-18] MEDS: SYNTHROID 50 MCG PO (09:19)
[2024-11-18] MEDS: PROTONIX 40 MG PO (09:20)
[2024-11-18] MEDS: NOVOLOG FLEXPEN-LOW RESISTANCE 1 UNITS SC (09:20)
[2024-11-18] MEDS: SENOKOT-S 1 TABLET PO (09:22)
[2024-11-18] MEDS: KCL 10 MEQ PO (09:22)
[2024-11-18] MEDS: ASPIR LOW (ENTERIC COATED) 81 MG PO (09:22)
[2024-11-18] MEDS: MIRALAX 17 GRAMS PO (09:23)
[2024-11-18] MEDS: COREG 12.5 MG PO ×2 (09:24→19:35)
[2024-11-18] MEDS: FLEXERIL 5 MG PO ×2 (09:26→19:36)
[2024-11-18] MEDS: LIDOCAINE 4% PATCH 1 PATCH TOPICAL (09:26)
[2024-11-18] MEDS: TYLENOL 650 MG PO (09:31)
[2024-11-18] MEDS: DILAUDID 1 MG IV (09:46)
--- NOTE | 2024-11-18 12:41 | W.PN.HOSP.TC ---
Today's Communication/Plan
-
Order PICC line
Continue IV cefazolin 2 g every 8 hours
Increase IV Dilaudid
Transition to oral pain regimen before discharge
Assessment / Plan
Assessment / Plan
#Osteomyelitis/discitis of T8/T9 vertebra
#MSSA bacteremia
-Has been hospitalized with recurrent back pain; previous imaging negative
-Upon previous ED visit did have MSSA positive urine culture, suspect these are related as MSSA uncommon urine species
-CT here with concern for osteomyelitis/discitis; MRI T-spine with extensive findings, L-spine unremarkable
-No fevers or leukocytosis though with elevated inflammatory markers; blood cultures x 2 on admission remain negative
-No clinical symptoms of cord impingement; evaluated by neurosurgery who recommends TLSO brace when weightbearing
-Blood cultures positive for MSSA, repeat cultures negative at 72 hours
Plan
-Continue with IV cefazolin 2 g every 8 hours for 6 to 8-week course
-Continue with as needed analgesia and start bowel regimen
-Increase IV Dilaudid to 1 mg / 2 mg for moderate/severe pain
-Plan to transition to oral Dilaudid regimen before DC
-Ordered PICC line
-Trend inflammatory markers, CBC, and temperature
#Transaminitis
-Has had mildly elevated AST, ALT, ALP since 2022; <2x ULN
-Suspect ALP is a bone etiology; cannot rule out underlying fatty liver
-Will trend LFTs here, consider RUQ US if worsening
-Avoid unnecessary hepatotoxic agents (ok to c/w statin)
#Hypertension
-No known history of hypertensive systemic disease
-Home medications include carvedilol 12.5 twice daily
-Blood pressure here slightly elevated secondary to pain
-Will continue to monitor, uptitrate regimen as needed
-Analgesia as above
#Hypothyroidism
-Unclear etiology, home medications include levothyroxine
-No signs or symptoms of thyroid dysfunction
#GERD
-Home regimen includes daily PPI
-No known history of Toure's esophagus or erosive disease
-No signs of breakthrough symptoms
#Hyperlipidemia
-Home regimen includes moderate intensity statin
-No known history of ASCVD
#T2DM
-Diet controlled; A1c 6.8%; no known history of microvascular disease
-Started on ISS with Accu-Cheks and carb controlled diet here
-BG goal 140-180
DVT prophylaxis: Lovenox
Diet: Diabetic
CODE STATUS: Full code
Anticipated Discharge: 24 - 48 hours
Subjective/Interval History
-
Date of Service: November 18, 2024
Seen and examined at bedside. No acute events reported overnight. AFVSS this morning
Blood cultures remain negative at 72 hours. No leukocytosis, CRP down trended
Denies any new complaints. Still has significant back pain
Objective Data
-
Labs:
Laboratory Results
11/18/24
06:06
WBC 5.2
Hgb 10.2 L
Hct 30.6 L
Plt Count 213 D
Sodium 136
Potassium 3.9
Chloride 103
Carbon Dioxide 27
BUN 12
Creatinine 0.7
Glucose 161 H
Calcium 9.0
Vital Signs:
Vital Signs
Temp Pulse Resp BP Pulse Ox
97.5 F 72 18 156/80 94
11/18/24 07:33 11/18/24 07:33 11/18/24 07:33 11/18/24 07:33 11/18/24 08:00
I&O
11/17/24 11/18/24 11/19/24
06:59 06:59 06:59
Intake Total 614 / 614 360 / 360
Output Total 200 / 200 650 / 650
Balance 414 / 414 -290 / -290
Review of Systems
-
History Source: Patient
All other systems: Reviewed and negative
Physical Exam
-
General: Well Developed, No Apparent Distress, Comfortable and Cachectic
HEENT: Normocephalic, Atraumatic and Moist Mucous Membranes
Respiratory: Clear to Auscultation and Non Labored Respirations
Cardiac: Regular Rhythm and S1/S2; Negative Murmur, Rub or Gallop
GI: Soft, Nontender, Nondistended and Normal Bowel Sounds
Musculoskeletal: No Clubbing, No Cyanosis, No Edema and Other (Mild tenderness to T8/T9 palpation)
Skin: Warm, Dry and Normal Turgor; Negative Rash
Neuro: AO x 3 and Nonfocal/Grossly Intact
Psych: Calm
Data Reviewed
-
Labs: Labs Reviewed by me, Discussed with Physician (Infectious disease) and Discussed with Patient
[2024-11-18 12:51] LABS: Glucose - Point of Care 264 mg/dl (70-99)
[2024-11-18] MEDS: NOVOLOG FLEXPEN-LOW RESISTANCE 3 UNITS SC (13:56)
[2024-11-18] MEDS: DILAUDID 2 MG IV ×2 (14:43→19:37)
--- NOTE | 2024-11-18 15:29 | VATNOTE ---
right picc redirected per protocol. awaiting 2nd cxr.
[2024-11-18 16:32] VITALS: BP 97/53
[2024-11-18 16:46] LABS: Glucose - Point of Care 140 mg/dl (70-99)
--- NOTE | 2024-11-18 17:12 | VATNOTE ---
picc retracted 4 cm per radiologist report & redressed per protocol. Blood return noted. PCN to hang IVFL with new tubing.
[2024-11-18] MEDS: NOVOLOG FLEXPEN-LOW RESISTANCE SC (17:13)
[2024-11-18] MEDS: LOVENOX 40 MG SC (17:52)
[2024-11-18] MEDS: ZOLOFT 100 MG PO (21:10)
[2024-11-18] MEDS: LIPITOR 20 MG PO (21:10)
[2024-11-18 21:26] LABS: Glucose - Point of Care 138 mg/dl (70-99)
[2024-11-18 23:00] VITALS: BP 114/68
[2024-11-19] MEDS: ANCEF 10 IV ×2 (01:36→11:51)
[2024-11-19] MEDS: DILAUDID 2 MG IV ×2 (01:36→06:15)
[2024-11-19] MEDS: SYNTHROID 50 MCG PO (06:12)
[2024-11-19 07:24] LABS: Glucose - Point of Care 145 mg/dl (70-99)
[2024-11-19 07:39] VITALS: BP 100/54
[2024-11-19] MEDS: NOVOLOG FLEXPEN-LOW RESISTANCE SC (09:01)
[2024-11-19] MEDS: PROTONIX 40 MG PO (09:08)
[2024-11-19] MEDS: KCL 10 MEQ PO (09:08)
[2024-11-19] MEDS: ASPIR LOW (ENTERIC COATED) 81 MG PO (09:08)
[2024-11-19] MEDS: LIDOCAINE 4% PATCH 1 PATCH TOPICAL (09:09)
[2024-11-19] MEDS: COREG PO (09:21)
[2024-11-19 11:22] LABS: Glucose - Point of Care 155 mg/dl (70-99)
--- NOTE | 2024-11-19 11:29 | CM ---
Addendum entered by Nadege D'Sun[facility] 11/19/24 13:33:
1530 pickup
[facility]/19/[facility] 13:19:
CM reviewed pt with Dr Adorno, ready for dc
Transition to oral pain meds
Pt offered bed at [facility], [facility] pending
[facility] still with no bed
update to pt and spouse
In agreement with [facility]
IMM verbally reviewed
Transport forms completed
Outreach to transport to schedule BLS, awaiting pickup time
Discharge Disposition- [facility] via BLS
Phone- [phone] Fax- [phone]
Original Note:
CM reviewed pt with nursing
Pt not ready for dc- continues with IV pain meds
Some confusion noted by nursing, no behaviors
Pt will need IV abx on dc, picc placed day prior
Outreach to [facility] who is 1st choice, no beds available
[facility] and [facility] pending and following- update to both via [facility]
Discharge Disposition- SNF with IV abx
[2024-11-19] MEDS: DILAUDID 1 MG IV (11:48)
[2024-11-19 11:50] VITALS: BP 120/73; PULSE 70; O2SAT 94
[2024-11-19] MEDS: NOVOLOG FLEXPEN-LOW RESISTANCE 1 UNITS SC (11:54)
[2024-11-19 11:58] VITALS: BP 120/73; PULSE 70; O2SAT 94
--- NOTE | 2024-11-19 12:30 | W.PN.HOSP.TC ---
Addendum entered and electronically signed by Rubens Adorno MD 11/19/24 13:20:
More than 30 minutes spent in discharge including
Final examination of the patient
Summarizing hospital stay
Instructions for continuing care to all relevant caregivers
Preparation of discharge records, prescriptions, and referral forms
Total time spent (in minutes): 41
Original Note:
Today's Communication/Plan
-
DC planning to SNF
Assessment / Plan
Assessment / Plan
Assessment:
MSSA bacteremia
Acute T8/T9 discitis/osteo with mild to moderate cord impingement
MSSA bacteruria x3 - descending from bacteremia
- MRI T spine: T8-9 discitis with osteomyelitis in the adjacent T8 and T9 vertebral bodies and associated endplate destruction. There is epidural extension of infection at this level with mild-moderate cord impingement. There is paraspinal extension
at this level more prominent on the right than the left.
- Continue Ancef through 01/14/24 via PICC. Weekly labs
- continue pain control (noted oral Dilaudid on home med list)
Transaminitis
- Has had mildly elevated AST, ALT, ALP since 2022; <2x ULN
- Suspect ALP is a bone etiology; cannot rule out underlying fatty liver
- LFTS improved on last check on 11/16/24
- Avoid unnecessary hepatotoxic agents (ok to c/w statin)
Essential HTN
- continue Coreg
Hypothyroidism
- continue levothyroxine
GERD
- Home regimen includes daily PPI
- No known history of Toure's esophagus or erosive disease
- No signs of breakthrough symptoms
Hyperlipidemia
- Home regimen includes moderate intensity statin
- No known history of ASCVD
T2DM
- Diet controlled; A1c 6.8%; no known history of microvascular disease
- Started on ISS with Accu-Cheks and carb controlled diet here
- BG goal 140-180
DVT ppx: Lovenox
Code: Full
Anticipated Discharge: Within 24 hours
Subjective/Interval History
-
Date of Service: November 19, 2024
no new complaints
Objective Data
-
Vital Signs:
Vital Signs
Temp Pulse Resp BP Pulse Ox
98.1 F 68 16 100/56 95
11/19/24 07:39 11/19/24 09:21 11/19/24 07:39 11/19/24 09:21 11/19/24 07:39
I&O
11/18/24 11/19/24 11/20/24
06:59 06:59 06:59
Intake Total 360 / 360 1680 / 1680
Output Total 650 / 650 350 / 350
Balance -290 / -290 1330 / 1330
Physical Exam
-
General: No Apparent Distress and Appears Chronically Ill
HEENT: Normocephalic and Atraumatic
Respiratory: Negative Wheezes
Cardiac: Regular Rhythm and S1/S2
GI: Soft
Genito-urinary: No Costovertebral Tender
Musculoskeletal: Other (Mild tenderness to T8/T9 palpation)
Neuro: AO x 3
Psych: Calm
Data Reviewed
-
Total Time Spent with Patient (in minutes): 42
Labs: Labs Reviewed by me
--- NOTE | 2024-11-19 13:20 | W.DS.TRANS ---
DC Summary - Exhibit Electric[employer]
-
Discharge Instructions:
Discharge Diagnosis/Procedures Osteodiscitis of T8/9 vertebrae
Diet Diabetic, Carb Controlled
Activity As tolerated
Driving Restrictions Not until seen by your Dr
Bathing Restrictions None
Blood Work CBC, CMP, CRP weekly while on cefazolin
Other Services PT,OT
Instructions:
Stand-Alone Forms:
Changes to Home Medications: No
Discharge Medications:
DC Medications w/original date entered in [employer]
atorvastatin 20 mg tablet 20 mg PO HS High cholesterol 09/24/19
sertraline 100 mg tablet 100 mg PO HS Mental Health/Anxiety 09/24/19
aspirin 81 mg tablet,delayed release 81 mg PO DAILY Blood clot prevention/tx 08/12/22
furosemide 20 mg tablet (Lasix) 20 mg PO DAILYPRN PRN edema 01/05/23
Lactobac no.2-Bifidobac no.1-S. thermo 112.5 billion cell capsule (Visbiome) 2 cap PO DAILY Supplement 10/12/24
carvedilol 12.5 mg tablet 12.5 mg PO BID Blood Pressure 10/12/24
levothyroxine 50 mcg tablet 50 mcg PO DAILY Thyroid 10/12/24
pantoprazole 40 mg tablet,delayed release 40 mg PO DAILY Gastrointestinal Issue 10/12/24
potassium chloride 10 mEq tablet,extended release 10 meq PO DAILY Supplement 10/12/24
therapeutic multivitamin 1 tab PO DAILY Supplement 10/12/24
acetaminophen 500 mg tablet (Tylenol Extra Strength) 1,000 mg (2 x 500 mg) PO TID #20 tabs 10/17/24
calcium polycarbophil 625 mg tablet (Fiber-Lax) 1,250 mg (2 x 625 mg) PO BID #60 tabs 10/17/24
loperamide 2 mg capsule 2 mg PO Q6HPRN PRN diarrhea #10 caps 10/17/24
glipizide 5 mg tablet, extended release 24 hr 10 mg PO DAILY 11/12/24
bisacodyl 10 mg rectal suppository 10 mg SD [id number] PRN constipation 2 months #30 ea 11/18/24
cefazolin 10 gram solution for injection 2 g IV Q8H 8 weeks #10 ea 11/18/24
cyclobenzaprine 10 mg tablet 5 mg (1/2 x 10 mg) PO Q8HPRN PRN spasm 1 month #20 tabs 11/18/24
polyethylene glycol 3350 17 gram oral powder packet 17 g PO DAILYPRN PRN constipation #30 ea 11/18/24
hydromorphone 2 mg tablet 2 mg PO Q4HPRN PRN severe pain #10 tabs 11/19/24
Home Medication Changes
Pending Results: No
Total time spent discharging patient (in min): 41
--- NOTE | 2024-11-19 13:47 | PTCARENOTE ---
Attempted to call [facility] for report, nursing unable to come to phone. Facility knows to call back and speak to me for report.
[2024-11-19] MEDS: ULTRAM 25 MG PO (14:44)
--- NOTE | 2024-11-19 14:57 | PTCARENOTE ---
RN tried calling [employer] two more times, now nobody is even answering phone to begin with for me to give report. I will attempt reaching back out when ems transport arrives for fourth time.
[2024-11-19 15:17] VITALS: BP 117/53
[2024-11-19 16:14] LABS: Glucose - Point of Care 180 mg/dl (70-99)
== END 2024-11-19 18:27 | DRG 540 ==
LOC: 1 ACUTE 15:34
PROVIDERS: Emergency Medicine; Physician Assistant Medical; Registered Nurse; ADMITTING PHYSICIAN Internal Medicine; ATTENDING PHYSICIAN Internal Medicine; EMERGENCY PHYSICIAN Emergency Medicine; OTHER PHYSICIAN Internal Medicine Infectious Disease; OTHER PHYSICIAN Neurological Surgery
DX: M46.24 Osteomyelitis of vertebra, thoracic region (principal); I50.32 Chronic diastolic (congestive) heart failure; N39.0 Urinary tract infection, site not specified; F17.200 Nicotine dependence, unspecified, uncomplicated; D63.8 Anemia in other chronic diseases classified elsewhere; I11.0 Hypertensive heart disease with heart failure; K21.9 Gastro-esophageal reflux disease without esophagitis; E11.69 Type 2 diabetes mellitus with other specified complication; E03.9 Hypothyroidism, unspecified; E78.00 Pure hypercholesterolemia, unspecified; L89.151 Pressure ulcer of sacral region, stage 1
CPT/HCPCS: 71045; 72157; 72158; 74177; 80048; 80053; 81003; 81015; 82248; 82962; 83036; 83605; 83690; 83735; 84484; 85025; 85027; 85652; 86140; 87040; 87086; 87147; 87150; 87186; 87205; 93005; 93306; 96361; 96374; 96375; 96376; 97116; 97163; 97167; 97530; 97535; 99285; A9575; Q9950; Q9967

== ENCOUNTER → 2024-11-26 11:32 | Outpatient (REF) | payer OTHER, MEDICARE, SELFPAY ==
[2024-11-26 11:56] LABS: % Basophils 0.2 % (0-2); % Eosinophils 1.5 % (0-6); % Immature Granulocytes 0.2 % (0-0.5); % Lymphocytes 33.5 % (20.5-51.1); % Monocytes 5.5 % (1.7-9.3); % Neutrophils 59.1 % (42.2-75.2); Absolute Eosinophils 0.1 10^3/uL (0-0.7); Absolute Lymphocytes 1.8 10^3/uL (1.2-3.4); Absolute Monocytes 0.3 10^3/uL (0.1-0.6); Absolute Neutrophils 3.2 10^3/uL (1.4-6.5); Hematocrit 33.4 % (37.0-47.0); Hemoglobin 10.8 g/dL (12.0-16.0); Mean Corp Hgb Conc. 32.3 g/dL (33.0-37.0); Mean Corpuscular Hgb 28.7 pg (27.0-31.0); Mean Corpuscular Volume 88.8 fL (81.0-99.0); Mean Platelet Volume 11.6 fL (7.4-10.4); Nucleated Red Blood Cells % 0 %; Platelet Count 207 10^3/uL (130-400); Red Blood Cell Count 3.76 10^6/uL (4.20-5.40); Red Cell Dist. Width 16.4 % (11.5-14.5); White Blood Cell Count 5.3 10^3/uL (4.8-10.8)
[2024-11-26 12:08] LABS: ALT (SGPT) 13 U/L (0-35); AST (SGOT) 28 U/L (14-36); Albumin 2.5 g/dl (3.5-5.0); Alkaline Phosphatase 145 U/L (38-126); Blood Urea Nitrogen 9 mg/dl (7-17); Calcium 8.6 mg/dl (8.4-10.2); Carbon Dioxide 26 mmol/L (22-30); Chloride 106 mmol/L (98-107); Glucose 162 mg/dl (70-99); Sodium 138 mmol/L (135-145); Total Bilirubin 0.3 mg/dl (0.2-1.3); Total Protein 5.8 g/dl (6.3-8.2); eGFR > 60.00
[2024-11-26 12:12] LABS: Erythrocyte Sed Rate 16 mm/hour (0-20)
== END ==
LOC: OLABP 11:32
PROVIDERS: ATTENDING PHYSICIAN Family Medicine
DX: M46.44 Discitis, unspecified, thoracic region (principal); M46.24 Osteomyelitis of vertebra, thoracic region; C18.9 Malignant neoplasm of colon, unspecified; E11.9 Type 2 diabetes mellitus without complications; D64.9 Anemia, unspecified; I10 Essential (primary) hypertension; I50.30 Unspecified diastolic (congestive) heart failure; R78.81 Bacteremia
CPT/HCPCS: 36415; 80053; 85025; 85652; 86140

== ENCOUNTER → 2024-12-03 10:12 | Outpatient (REF) | payer OTHER, MEDICARE, SELFPAY ==
[2024-12-03 13:05] LABS: % Basophils 0.2 % (0-2); % Eosinophils 0.2 % (0-6); % Immature Granulocytes 0.2 % (0-0.5); % Lymphocytes 29.6 % (20.5-51.1); % Monocytes 4.9 % (1.7-9.3); % Neutrophils 64.9 % (42.2-75.2); Absolute Lymphocytes 1.3 10^3/uL (1.2-3.4); Absolute Monocytes 0.2 10^3/uL (0.1-0.6); Absolute Neutrophils 2.8 10^3/uL (1.4-6.5); Hemoglobin 10.7 g/dL (12.0-16.0); Mean Corp Hgb Conc. 32.4 g/dL (33.0-37.0); Mean Corpuscular Hgb 28.8 pg (27.0-31.0); Mean Corpuscular Volume 88.9 fL (81.0-99.0); Mean Platelet Volume 11.9 fL (7.4-10.4); Nucleated Red Blood Cells % 0 %; Platelet Count 118 10^3/uL (130-400); Red Blood Cell Count 3.71 10^6/uL (4.20-5.40); Red Cell Dist. Width 17.3 % (11.5-14.5); White Blood Cell Count 4.3 10^3/uL (4.8-10.8)
[2024-12-03 13:17] LABS: Erythrocyte Sed Rate 24 mm/hour (0-20)
[2024-12-03 13:53] LABS: ALT (SGPT) 17 U/L (0-35); AST (SGOT) 38 U/L (14-36); Albumin 2.6 g/dl (3.5-5.0); Alkaline Phosphatase 130 U/L (38-126); Blood Urea Nitrogen 14 mg/dl (7-17); Calcium 8.6 mg/dl (8.4-10.2); Carbon Dioxide 25 mmol/L (22-30); Chloride 105 mmol/L (98-107); Glucose 65 mg/dl (70-99); Potassium 3.7 mmol/L (3.5-5.1); Sodium 136 mmol/L (135-145); Total Bilirubin 0.2 mg/dl (0.2-1.3); Total Protein 5.6 g/dl (6.3-8.2); eGFR > 60.00
== END ==
LOC: OLABP 10:12
PROVIDERS: ATTENDING PHYSICIAN Family Medicine
DX: M46.44 Discitis, unspecified, thoracic region (principal); E11.9 Type 2 diabetes mellitus without complications; D64.9 Anemia, unspecified; I10 Essential (primary) hypertension; I50.30 Unspecified diastolic (congestive) heart failure
CPT/HCPCS: 36415; 80053; 85025; 85652; 86140

== ENCOUNTER → 2024-12-10 09:13 | Outpatient (REF) | payer OTHER, MEDICARE, SELFPAY ==
[2024-12-10 10:20] LABS: % Basophils 0.2 % (0-2); % Eosinophils 3.2 % (0-6); % Immature Granulocytes 0.7 % (0-0.5); % Lymphocytes 34.6 % (20.5-51.1); % Monocytes 6.9 % (1.7-9.3); % Neutrophils 54.4 % (42.2-75.2); Absolute Eosinophils 0.1 10^3/uL (0-0.7); Absolute Lymphocytes 1.4 10^3/uL (1.2-3.4); Absolute Monocytes 0.3 10^3/uL (0.1-0.6); Absolute Neutrophils 2.2 10^3/uL (1.4-6.5); Hematocrit 30.4 % (37.0-47.0); Hemoglobin 9.9 g/dL (12.0-16.0); Mean Corp Hgb Conc. 32.6 g/dL (33.0-37.0); Mean Corpuscular Hgb 28.8 pg (27.0-31.0); Mean Corpuscular Volume 88.4 fL (81.0-99.0); Mean Platelet Volume 11.5 fL (7.4-10.4); Nucleated Red Blood Cells % 0 %; Platelet Count 169 10^3/uL (130-400); Red Blood Cell Count 3.44 10^6/uL (4.20-5.40); Red Cell Dist. Width 16.8 % (11.5-14.5); White Blood Cell Count 4.1 10^3/uL (4.8-10.8)
[2024-12-10 12:00] LABS: ALT (SGPT) 11 U/L (0-35); AST (SGOT) 41 U/L (14-36); Albumin 2.8 g/dl (3.5-5.0); Alkaline Phosphatase 152 U/L (38-126); Blood Urea Nitrogen 11 mg/dl (7-17); Calcium 8.7 mg/dl (8.4-10.2); Carbon Dioxide 27 mmol/L (22-30); Chloride 105 mmol/L (98-107); Glucose 89 mg/dl (70-99); Potassium 4.2 mmol/L (3.5-5.1); Sodium 139 mmol/L (135-145); Total Bilirubin 0.4 mg/dl (0.2-1.3); Total Protein 6.2 g/dl (6.3-8.2); eGFR > 60.00
[2024-12-10 12:56] LABS: Erythrocyte Sed Rate 44 mm/hour (0-20)
== END ==
LOC: OLABP 09:13
PROVIDERS: ATTENDING PHYSICIAN Family Medicine
DX: M46.44 Discitis, unspecified, thoracic region (principal); M46.24 Osteomyelitis of vertebra, thoracic region; C18.9 Malignant neoplasm of colon, unspecified; E11.9 Type 2 diabetes mellitus without complications; D64.9 Anemia, unspecified; I10 Essential (primary) hypertension; I50.30 Unspecified diastolic (congestive) heart failure; R78.81 Bacteremia
CPT/HCPCS: 36415; 80053; 85025; 85652; 86140

== ENCOUNTER → 2024-12-17 09:59 | Outpatient (REF) | payer OTHER, MEDICARE, SELFPAY ==
[2024-12-17 11:15] LABS: % Basophils 0.3 % (0-2); % Eosinophils 2.2 % (0-6); % Immature Granulocytes 0.3 % (0-0.5); % Monocytes 8.4 % (1.7-9.3); % Neutrophils 46.8 % (42.2-75.2); Absolute Eosinophils 0.1 10^3/uL (0-0.7); Absolute Lymphocytes 1.5 10^3/uL (1.2-3.4); Absolute Monocytes 0.3 10^3/uL (0.1-0.6); Absolute Neutrophils 1.7 10^3/uL (1.4-6.5); Hematocrit 30.4 % (37.0-47.0); Hemoglobin 9.9 g/dL (12.0-16.0); Mean Corp Hgb Conc. 32.6 g/dL (33.0-37.0); Mean Corpuscular Hgb 29.4 pg (27.0-31.0); Mean Corpuscular Volume 90.2 fL (81.0-99.0); Mean Platelet Volume 11.6 fL (7.4-10.4); Nucleated Red Blood Cells % 0 %; Platelet Count 158 10^3/uL (130-400); Red Blood Cell Count 3.37 10^6/uL (4.20-5.40); Red Cell Dist. Width 16.8 % (11.5-14.5); White Blood Cell Count 3.7 10^3/uL (4.8-10.8)
[2024-12-17 11:34] LABS: ALT (SGPT) 28 U/L (0-35); AST (SGOT) 64 U/L (14-36); Alkaline Phosphatase 146 U/L (38-126); Blood Urea Nitrogen 18 mg/dl (7-17); Calcium 8.9 mg/dl (8.4-10.2); Carbon Dioxide 30 mmol/L (22-30); Chloride 101 mmol/L (98-107); Glucose 132 mg/dl (70-99); Sodium 138 mmol/L (135-145); Total Bilirubin 0.4 mg/dl (0.2-1.3); Total Protein 5.7 g/dl (6.3-8.2); eGFR > 60.00
[2024-12-17 11:52] LABS: Erythrocyte Sed Rate 14 mm/hour (0-20)
== END ==
LOC: OLABP 09:59
PROVIDERS: ATTENDING PHYSICIAN Family Medicine
DX: M46.44 Discitis, unspecified, thoracic region (principal); M46.24 Osteomyelitis of vertebra, thoracic region; C18.9 Malignant neoplasm of colon, unspecified; E11.9 Type 2 diabetes mellitus without complications; D64.9 Anemia, unspecified; I10 Essential (primary) hypertension; I50.30 Unspecified diastolic (congestive) heart failure; R78.81 Bacteremia
CPT/HCPCS: 36415; 80053; 85025; 85652; 86140

== ENCOUNTER → 2024-12-24 10:17 | Outpatient (REF) | payer OTHER, MEDICARE, SELFPAY ==
[2024-12-24 11:22] LABS: % Eosinophils 3.1 % (0-6); % Immature Granulocytes 0.3 % (0-0.5); % Lymphocytes 46.3 % (20.5-51.1); % Monocytes 9.2 % (1.7-9.3); % Neutrophils 41.1 % (42.2-75.2); Absolute Eosinophils 0.1 10^3/uL (0-0.7); Absolute Lymphocytes 1.4 10^3/uL (1.2-3.4); Absolute Monocytes 0.3 10^3/uL (0.1-0.6); Absolute Neutrophils 1.2 10^3/uL (1.4-6.5); Hemoglobin 10.4 g/dL (12.0-16.0); Mean Corp Hgb Conc. 32.5 g/dL (33.0-37.0); Mean Corpuscular Hgb 29.7 pg (27.0-31.0); Mean Corpuscular Volume 91.4 fL (81.0-99.0); Mean Platelet Volume 11.5 fL (7.4-10.4); Nucleated Red Blood Cells % 0 %; Platelet Count 151 10^3/uL (130-400); White Blood Cell Count 2.9 10^3/uL (4.8-10.8)
[2024-12-24 11:43] LABS: ALT (SGPT) 53 U/L (0-35); AST (SGOT) 80 U/L (14-36); Albumin 3.2 g/dl (3.5-5.0); Alkaline Phosphatase 172 U/L (38-126); Blood Urea Nitrogen 14 mg/dl (7-17); Calcium 9.2 mg/dl (8.4-10.2); Carbon Dioxide 25 mmol/L (22-30); Chloride 106 mmol/L (98-107); Glucose 110 mg/dl (70-99); Potassium 4.3 mmol/L (3.5-5.1); Sodium 138 mmol/L (135-145); Total Bilirubin 0.6 mg/dl (0.2-1.3); eGFR > 60.00
[2024-12-24 11:44] LABS: C-Reactive Protein < 5.00 mg/L (0.0-10.00)
[2024-12-24 12:24] LABS: Erythrocyte Sed Rate 9 mm/hour (0-20)
== END ==
LOC: OLABP 10:17
PROVIDERS: ATTENDING PHYSICIAN Family Medicine
DX: M46.44 Discitis, unspecified, thoracic region (principal); M46.24 Osteomyelitis of vertebra, thoracic region; C18.9 Malignant neoplasm of colon, unspecified; E11.9 Type 2 diabetes mellitus without complications; D64.9 Anemia, unspecified; I10 Essential (primary) hypertension; I50.30 Unspecified diastolic (congestive) heart failure; R78.6 Finding of steroid agent in blood
CPT/HCPCS: 36415; 80053; 85025; 85652; 86140

== ENCOUNTER → 2024-12-31 10:29 | Outpatient (REF) | payer OTHER, MEDICARE, SELFPAY ==
[2024-12-31 12:16] LABS: % Basophils 0.3 % (0-2); % Eosinophils 3.6 % (0-6); % Lymphocytes 42.3 % (20.5-51.1); % Monocytes 9.8 % (1.7-9.3); Absolute Eosinophils 0.1 10^3/uL (0-0.7); Absolute Lymphocytes 1.3 10^3/uL (1.2-3.4); Absolute Monocytes 0.3 10^3/uL (0.1-0.6); Absolute Neutrophils 1.3 10^3/uL (1.4-6.5); Hematocrit 32.5 % (37.0-47.0); Hemoglobin 10.6 g/dL (12.0-16.0); Mean Corp Hgb Conc. 32.6 g/dL (33.0-37.0); Mean Corpuscular Hgb 29.9 pg (27.0-31.0); Mean Corpuscular Volume 91.8 fL (81.0-99.0); Mean Platelet Volume 11.8 fL (7.4-10.4); Nucleated Red Blood Cells % 0 %; Platelet Count 138 10^3/uL (130-400); Red Blood Cell Count 3.54 10^6/uL (4.20-5.40); Red Cell Dist. Width 16.3 % (11.5-14.5); White Blood Cell Count 3.1 10^3/uL (4.8-10.8)
[2024-12-31 12:35] LABS: C-Reactive Protein < 5.00 mg/L (0.0-10.00)
[2024-12-31 12:37] LABS: ALT (SGPT) 38 U/L (0-35); AST (SGOT) 46 U/L (14-36); Alkaline Phosphatase 132 U/L (38-126); Blood Urea Nitrogen 13 mg/dl (7-17); Calcium 8.6 mg/dl (8.4-10.2); Carbon Dioxide 23 mmol/L (22-30); Chloride 109 mmol/L (98-107); Glucose 104 mg/dl (70-99); Potassium 3.5 mmol/L (3.5-5.1); Sodium 139 mmol/L (135-145); Total Bilirubin 0.6 mg/dl (0.2-1.3); Total Protein 5.4 g/dl (6.3-8.2); eGFR > 60.00
[2024-12-31 12:49] LABS: Erythrocyte Sed Rate 18 mm/hour (0-20)
== END ==
LOC: OLABP 10:29
PROVIDERS: ATTENDING PHYSICIAN Family Medicine
DX: M46.44 Discitis, unspecified, thoracic region (principal); M46.24 Osteomyelitis of vertebra, thoracic region; C18.9 Malignant neoplasm of colon, unspecified; E11.9 Type 2 diabetes mellitus without complications; D64.9 Anemia, unspecified; I10 Essential (primary) hypertension
CPT/HCPCS: 36415; 80053; 85025; 85652; 86140

== ENCOUNTER → 2025-01-07 09:48 | Outpatient (REF) | payer OTHER, MEDICARE, SELFPAY ==
[2025-01-07 14:00] LABS: % Basophils 0.3 % (0-2); % Eosinophils 3.4 % (0-6); % Immature Granulocytes 0.3 % (0-0.5); % Lymphocytes 40.7 % (20.5-51.1); % Monocytes 8.4 % (1.7-9.3); % Neutrophils 46.9 % (42.2-75.2); Absolute Eosinophils 0.1 10^3/uL (0-0.7); Absolute Lymphocytes 1.5 10^3/uL (1.2-3.4); Absolute Monocytes 0.3 10^3/uL (0.1-0.6); Absolute Neutrophils 1.7 10^3/uL (1.4-6.5); Hematocrit 34.8 % (37.0-47.0); Hemoglobin 11.3 g/dL (12.0-16.0); Mean Corp Hgb Conc. 32.5 g/dL (33.0-37.0); Mean Corpuscular Volume 92.3 fL (81.0-99.0); Mean Platelet Volume 12.1 fL (7.4-10.4); Nucleated Red Blood Cells % 0 %; Platelet Count 125 10^3/uL (130-400); Red Blood Cell Count 3.77 10^6/uL (4.20-5.40); Red Cell Dist. Width 15.3 % (11.5-14.5); White Blood Cell Count 3.6 10^3/uL (4.8-10.8)
[2025-01-07 14:11] LABS: Erythrocyte Sed Rate 5 mm/hour (0-20)
[2025-01-07 14:32] LABS: ALT (SGPT) 40 U/L (0-35); AST (SGOT) 63 U/L (14-36); Albumin 3.4 g/dl (3.5-5.0); Alkaline Phosphatase 152 U/L (38-126); Blood Urea Nitrogen 18 mg/dl (7-17); Calcium 9.7 mg/dl (8.4-10.2); Carbon Dioxide 28 mmol/L (22-30); Chloride 106 mmol/L (98-107); Glucose 125 mg/dl (70-99); Potassium 4.3 mmol/L (3.5-5.1); Sodium 138 mmol/L (135-145); Total Bilirubin 0.4 mg/dl (0.2-1.3); Total Protein 6.1 g/dl (6.3-8.2); eGFR > 60.00
[2025-01-07 14:34] LABS: C-Reactive Protein < 5.00 mg/L (0.0-10.00)
== END ==
LOC: OLABP 09:48
PROVIDERS: ATTENDING PHYSICIAN Family Medicine
DX: M46.44 Discitis, unspecified, thoracic region (principal); M46.24 Osteomyelitis of vertebra, thoracic region; C18.9 Malignant neoplasm of colon, unspecified; E11.9 Type 2 diabetes mellitus without complications; D64.9 Anemia, unspecified; I10 Essential (primary) hypertension; I50.30 Unspecified diastolic (congestive) heart failure; R78.81 Bacteremia
CPT/HCPCS: 36415; 80053; 85025; 85652; 86140

== ENCOUNTER → 2025-02-08 16:39 | Outpatient (REF) | payer MEDICARE, OTHER, SELFPAY | LOC: MRI 3T 16:39 | PROVIDERS: ATTENDING PHYSICIAN Physician Assistant Medical; FAMILY PHYSICIAN Internal Medicine | DX: M46.24 Osteomyelitis of vertebra, thoracic region (principal) | CPT/HCPCS: 72157; A9575 ==

== ENCOUNTER → 2025-03-27 13:43 | Outpatient (REF) | payer MEDICARE, OTHER, SELFPAY | LOC: HWRAD 13:43 | PROVIDERS: ATTENDING PHYSICIAN Orthopaedic Surgery | DX: M79.641 Pain in right hand (principal) | CPT/HCPCS: 73130 ==

== ENCOUNTER → 2025-03-29 14:57 | Outpatient (REF) | payer MEDICARE, OTHER, SELFPAY | LOC: HWRAD 14:57 | PROVIDERS: ATTENDING PHYSICIAN Neurological Surgery; FAMILY PHYSICIAN Internal Medicine | DX: M46.24 Osteomyelitis of vertebra, thoracic region (principal); S22.000A Wedge compression fracture of unspecified thoracic vertebra, initial encounter for closed fracture | CPT/HCPCS: 72070 ==

== ENCOUNTER → 2025-04-17 11:43 | Outpatient (REF) | payer MEDICARE, OTHER, SELFPAY | LOC: RAD 11:43 | PROVIDERS: ATTENDING PHYSICIAN Specialist; FAMILY PHYSICIAN Internal Medicine | DX: C18.9 Malignant neoplasm of colon, unspecified (principal); C77.9 Secondary and unspecified malignant neoplasm of lymph node, unspecified | CPT/HCPCS: 71260; 74177; Q9967 ==

== ENCOUNTER → 2025-10-15 16:28 | Outpatient (REF) | payer MEDICARE, OTHER, SELFPAY | LOC: RAD 16:28 | PROVIDERS: ATTENDING PHYSICIAN Specialist; FAMILY PHYSICIAN Internal Medicine | DX: C18.9 Malignant neoplasm of colon, unspecified (principal); C77.9 Secondary and unspecified malignant neoplasm of lymph node, unspecified | CPT/HCPCS: 71260; 74177; Q9967 ==